=== PATIENT | female | born 1970 | race Caucasian/White ===

== ENCOUNTER 2018-04-02 12:30 | Emergency (ER) | payer BC, SELFPAY ==
[2018-04-02 12:35] VITALS: BP 119/87; PULSE 83; RESP 16; TEMP 36.7; O2SAT 97
[2018-04-02 13:52] LABS: Abs Immature Grans 0.01 k/cumm (0.0-0.09); Absolute Basophil Count 0.05 k/cumm (0.0-0.2); Absolute Eosinophil Count 0.25 k/cumm (0.0-0.7); Absolute Lymphocyte Count 2.56 k/cumm (1.2-3.4); Absolute Monocyte Count 0.47 k/cumm (0.11-0.7); Absolute Neutrophil Count 4.36 k/cumm (1.2-6.7); Basophils % 0.6; Eosinophils % 3.2; HCT 41.9 % (36.0-46.0); HGB 14.6 g/dL (12.0-15.5); Immature Grans % 0.1; Lymphocytes % 33.2; Mean Corp. HGB Concentration 34.8 g/dL (32.0-36.0); Mean Corpuscular Hemoglobin 31.3 pg (27.0-33.0); Mean Corpuscular Volume 89.9 fL (80-95); Mean Platelet Volume 9.2 fL (8.0-11.0); Monocytes % 6.1; Neutrophils % 56.8; Platelet Count 269 x1000/uL (130-400); RBC 4.66 m/cumm (4.00-5.20); RBC Distribution Width 13.4 % (11.7-14.6)
[2018-04-02 14:04] LABS: ALT 21 U/L (12-78); AST 15 U/L (15-37); Alkaline Phosphatase 52 U/L (46-116); Anion Gap 8.2 mmol/L (3-11); BUN 15 mg/dL (7-18); Bilirubin, Total 0.4 mg/dL (0.2-1.0); CO2 28.8 mmol/L (21.0-32.0); CREATININE 0.67 mg/dL (0.55-1.02); Chloride 102 mmol/L (98-107); Glucose 90 mg/dL (70-100); Lipase 147 U/L (73-393); Potassium 3.9 mmol/L (3.5-5.1); Sodium 139 mmol/L (136-145); Total Protein 7.5 g/dL (6.4-8.2)
[2018-04-02 15:28] LABS: Bilirubin Negative (Negative); Blood Negative (Negative); Clarity Clear; Glucose Negative (Negative); Ketones Negative (Negative); Leukocyte Esterase Negative (Negative); Nitrite Negative (Negative); Specific Gravity 1.015 (1.005-1.025); Urobilinogen 0.2 EU/dL (Up TO 0.2)
--- NOTE | 2018-04-02 16:09 | W.ED.GENAD ---
Discharge Plan Disposition Patient Disposition: HOME Condition: Stable Discharge Details Chief Complaint: GenMedical Clinical Impression: Nausea & vomiting, Headache Primary Care Provider: Pati Gaona ED Provider: Robbin Montoya Home Meds and New Rx's Prescriptions: No Action fluvoxamine 50 mg Tablet 50 mg PO DAILY RF: 0 Discharge Instructions Instructions: Acute Nausea and Vomiting (ED), General Headache (ED) Additional Instructions: Feel free to return to the emergency department for any new or worsening symptoms. Otherwise take medication as prescribed by your primary care provider for further nausea and slowly advance her diet as tolerated. You may also use ibuprofen or other yqcl-dxo-xjemnku medications as needed for headache. Referrals: Pati Gaona MD [Primary Care Provider] - (As needed for reassessment) Discharge Data Discharge Date/Time-TO BE ENTERED AT DEPARTURE: 04/02/18 16:15 Medical Decision Making Patient presenting to the emergency department with chief complaint of nausea vomiting. Patient also does state associated migraine headache which is her normal headache. Patient states that 2 weeks ago she had a procedure performed on her neck and then started having some mild nausea vomiting. Patient states multiple workups and visits with both primary care and emergency department at [facility] with no acute signs. Patient states that symptoms symptoms have been fairly persistent but at times has been able to tolerate p.o. intake. Patient was seen today at her primary care office and they were concerned due to the reported significant amount of vomiting and were requesting patient to come to the emergency department for labs and IV hydration. Physical exam is unremarkable and shows no emergent findings so plan is to check labs, give IV fluids, and give antiemetic and ketorolac. After review of labs which is completely unremarkable and shows no significant signs of dehydration patient reassessed. Due to significant volume in the emergency department patient did receive fluids but no ketorolac. Patient states that she does feel better and improved and reassured that her labs are okay. Given this I do not feel that any other interventions are needed at this time and patient was encouraged to follow-up with primary care provider as needed or return to the emergency department for new or worsening symptoms. HPI General Mode of arrival: ambulatory. Date/Time Provider Initiated Documentation: 04/02/18 12:45. Limitations to Documentation: no limitations. Information obtained by: patient. History of Present Illness 47 year old F presents to the emergency department with the chief complaint of Vomiting, described as moderate, with intensity rated at 7. and is localized to the head. Patient started experiencing this week(s) (2) and it has been constant. No relieving factors improve symptom(s), No exacerbating factors reported . Patient notes headaches. Patient did receive the following treatments prior to arrival, none Related Data Home Medications Medication Instructions Recorded Confirmed fluvoxamine 50 mg PO DAILY 04/02/18 04/02/18 Allergies Allergy/AdvReac Type Severity Reaction Status Date / Time sumatriptan [From Imitrex] Allergy Intermediate head Unverified 04/02/18 12:42 numbness sumatriptan succinate Allergy Intermediate head Unverified 04/02/18 12:42 [From Imitrex] numbness General Stated Complaint: GenMedical MELISSA: 3 Review of Systems Constitutional Denies body ache(s), Denies chills, Denies fever(s) and Reports headache(s) ENT Reports headache(s) Cardiovascular Denies chest pain and Denies dyspnea Respiratory Denies dyspnea Gastrointestinal Denies abdominal pain, Reports nausea and Reports vomiting Integumentary/Breasts Denies rash Neurologic Denies confusion, Reports headache(s) and Denies sensory deficit Psychiatric Denies confusion PFSH Medical History Migraine headache (Chronic) Social History Smoking/Tobacco Use Status: Current every day Exam Const General: cooperative, no acute distress and not ill appearing Orientation: alert, awake and oriented x3 HENMT Mouth: moist mucous membranes Neck Neck: normal visual inspection, full ROM and no meningeal signs Resp Effort & Inspection: normal respiratory effort, able to speak in complete sentences and no respiratory distress Auscultation: clear to auscultation bilaterally Cardio Rate: regular rate and not tachycardic Rhythm: regular rhythm Heart Sounds: S1 normal and S2 normal Skin General skin exam: no rashes or lesions noted Neuro General: alert, awake, oriented x3, gait normal, tone normal, moves all extremities, no focal motor deficits and CN's II-XI intact bilaterally Sensory Exam: no sensory deficits noted Course Vital Signs Temperature 36.7 C 04/02/18 12:35 Pulse 83 04/02/18 12:35 Respiratory Rate 16 04/02/18 12:35 Blood Pressure 119/87 04/02/18 12:35 Pulse Oximetry 97 04/02/18 12:35 Temperature 36.7 C 04/02/18 12:35 Temperature Source Temporal Artery Scan 04/02/18 12:35 Pulse 83 04/02/18 12:35 Respiratory Rate 16 04/02/18 12:35 Respiratory Effort 04/02/18 13:34 Respiratory Pattern Normal 04/02/18 13:34 Blood Pressure 119/87 04/02/18 12:35 Blood Pressure Position Sitting 04/02/18 12:35 Pulse Oximetry 97 04/02/18 12:35 Oxygen Delivery Method Room Air 04/02/18 12:35 Oxygen Flow Rate 0 04/02/18 12:35 Lab/Test Results Lab/Test Results: Laboratory Tests Range/Units 04/02/18 04/02/18 04/02/18 13:46 13:46 15:23 WBC (4.4-10.8) k/cumm 7.70 RBC (4.00-5.20) m/cumm 4.66 Hgb (12.0-15.5) g/dL 14.6 Hct (36.0-46.0) % 41.9 MCV (80-95) fL 89.9 MCH (27.0-33.0) pg 31.3 MCHC (32.0-36.0) g/dL 34.8 RDW (11.7-14.6) % 13.4 Plt Count (130-400) x1000/uL 269 MPV (8.0-11.0) fL 9.2 Immature Gran % 0.1 Neutrophils % 56.8 Lymphocytes % 33.2 Monocytes % 6.1 Eosinophils % 3.2 Basophils % 0.6 Absolute Neutrophils (1.2-6.7) k/cumm 4.36 Absolute Lymphocytes (1.2-3.4) k/cumm 2.56 Absolute Monocytes (0.11-0.7) k/cumm 0.47 Absolute Eosinophils (0.0-0.7) k/cumm 0.25 Absolute Basophils (0.0-0.2) k/cumm 0.05 Sodium (136-145) mmol/L 139 Potassium (3.5-5.1) mmol/L 3.9 Chloride (98-107) mmol/L 102 Carbon Dioxide (21.0-32.0) mmol/L 28.8 Anion Gap (3-11) mmol/L 8.2 BUN (7-18) mg/dL 15 Creatinine (0.55-1.02) mg/dL 0.67 Estimated GFR/1.73 m2 (mL/min/1.73m2) >= 60.00 Glucose (70-100) mg/dL 90 Calcium (8.5-10.1) mg/dL 9.0 Magnesium (1.8-2.4) mg/dL 2.0 Total Bilirubin (0.2-1.0) mg/dL 0.4 AST (15-37) U/L 15 ALT (12-78) U/L 21 Alkaline Phosphatase (46-116) U/L 52 Total Protein (6.4-8.2) g/dL 7.5 Albumin (3.4-5.0) g/dL 4.0 Lipase (73-393) U/L 147 Urine Color (Yellow) Yellow Urine Clarity Clear Urine pH (5-8) 7.0 Ur Specific [place] (1.005-1.025) 1.015 Urine Protein (Negative) mg/dL Negative Urine Ketones (Negative) mg/dL Negative Urine Blood (Negative) Negative Urine Nitrite (Negative) Negative Urine Bilirubin (Negative) Negative Urine Urobilinogen (Up TO 0.2) EU/dL 0.2 Ur Leukocyte Esterase (Negative) Negative Urine Glucose (Negative) mg/dL Negative
[2018-04-02] MEDS: Normal Saline 1,000 ML 1000 ML IV (16:12)
--- NOTE | 2018-04-02 16:12 | ED.GENADUL_ITS ---
Discharge Plan Disposition Patient Disposition: HOME Condition: Stable Discharge Details Chief Complaint: GenMedical Clinical Impression: Nausea & vomiting, Headache Primary Care Provider: Pati Gaona ED Provider: Robbin Montoya Home Meds and New Rx's Prescriptions: No Action fluvoxamine 50 mg Tablet 50 mg PO DAILY RF: 0 Discharge Instructions Instructions: Acute Nausea and Vomiting (ED), General Headache (ED) Additional Instructions: Feel free to return to the emergency department for any new or worsening symptoms. Otherwise take medication as prescribed by your primary care provider for further nausea and slowly advance her diet as tolerated. You may also use ibuprofen or other uyzn-mhy-xhdyofj medications as needed for headache. Referrals: Pati Gaona MD [Primary Care Provider] - (As needed for reassessment) Discharge Data Discharge Date/Time-TO BE ENTERED AT DEPARTURE: 04/02/18 16:15 Medical Decision Making Patient presenting to the emergency department with chief complaint of nausea vomiting. Patient also does state associated migraine headache which is her normal headache. Patient states that 2 weeks ago she had a procedure performed on her neck and then started having some mild nausea vomiting. Patient states multiple workups and visits with both primary care and emergency department at [facility] with no acute signs. Patient states that symptoms symptoms have been fairly persistent but at times has been able to tolerate p.o. intake. Patient was seen today at her primary care office and they were concerned due to the reported significant amount of vomiting and were requesting patient to come to the emergency department for labs and IV hydration. Physical exam is unremarkable and shows no emergent findings so plan is to check labs, give IV fluids, and give antiemetic and ketorolac. After review of labs which is completely unremarkable and shows no significant signs of dehydration patient reassessed. Due to significant volume in the emergency department patient did receive fluids but no ketorolac. Patient states that she does feel better and improved and reassured that her labs are okay. Given this I do not feel that any other interventions are needed at this time and patient was encouraged to follow-up with primary care provider as needed or return to the emergency department for new or worsening symptoms. HPI General Mode of arrival: ambulatory . Date/Time Provider Initiated Documentation: 04/02/18 12:45 . Limitations to Documentation: no limitations . Information obtained by: patient . History of Present Illness 47 year old F presents to the emergency department with the chief complaint of Vomiting, described as moderate, with intensity rated at 7. and is localized to the head. Patient started experiencing this week(s) (2) and it has been constant. No relieving factors improve symptom(s), No exacerbating factors reported . Patient notes headaches. Patient did receive the following treatments prior to arrival, none Related Data Home Medications Medication Instructions Recorded Confirmed fluvoxamine 50 mg PO DAILY 04/02/18 04/02/18 Allergies Allergy/AdvReac Type Severity Reaction Status Date / Time sumatriptan [From Imitrex] Allergy Intermediate head Unverified 04/02/18 12:42 numbness sumatriptan succinate Allergy Intermediate head Unverified 04/02/18 12:42 [From Imitrex] numbness General Stated Complaint: GenMedical MELISSA: 3 Review of Systems Constitutional Denies body ache(s), Denies chills, Denies fever(s) and Reports headache(s) ENT Reports headache(s) Cardiovascular Denies chest pain and Denies dyspnea Respiratory Denies dyspnea Gastrointestinal Denies abdominal pain, Reports nausea and Reports vomiting Integumentary/Breasts Denies rash Neurologic Denies confusion, Reports headache(s) and Denies sensory deficit Psychiatric Denies confusion PFSH Medical History Migraine headache (Chronic) Social History Smoking/Tobacco Use Status: Current every day Exam Const General: cooperative, no acute distress and not ill appearing Orientation: alert, awake and oriented x3 HENMT Mouth: moist mucous membranes Neck Neck: normal visual inspection, full ROM and no meningeal signs Resp Effort & Inspection: normal respiratory effort, able to speak in complete sentences and no respiratory distress Auscultation: clear to auscultation bilaterally Cardio Rate: regular rate and not tachycardic Rhythm: regular rhythm Heart Sounds: S1 normal and S2 normal Skin General skin exam: no rashes or lesions noted Neuro General: alert, awake, oriented x3, gait normal, tone normal, moves all extremities, no focal motor deficits and CN's II-XI intact bilaterally Sensory Exam: no sensory deficits noted Course Vital Signs Temperature 36.7 C 04/02/18 12:35 Pulse 83 04/02/18 12:35 Respiratory Rate 16 04/02/18 12:35 Blood Pressure 119/87 04/02/18 12:35 Pulse Oximetry 97 04/02/18 12:35 Temperature 36.7 C 04/02/18 12:35 Temperature Source Temporal Artery Scan 04/02/18 12:35 Pulse 83 04/02/18 12:35 Respiratory Rate 16 04/02/18 12:35 Respiratory Effort 04/02/18 13:34 Respiratory Pattern Normal 04/02/18 13:34 Blood Pressure 119/87 04/02/18 12:35 Blood Pressure Position Sitting 04/02/18 12:35 Pulse Oximetry 97 04/02/18 12:35 Oxygen Delivery Method Room Air 04/02/18 12:35 Oxygen Flow Rate 0 04/02/18 12:35 Lab/Test Results Lab/Test Results: Laboratory Tests Range/Units 04/02/18 04/02/18 04/02/18 13:46 13:46 15:23 WBC (4.4-10.8) k/cumm 7.70 RBC (4.00-5.20) m/cumm 4.66 Hgb (12.0-15.5) g/dL 14.6 Hct (36.0-46.0) % 41.9 MCV (80-95) fL 89.9 MCH (27.0-33.0) pg 31.3 MCHC (32.0-36.0) g/dL 34.8 RDW (11.7-14.6) % 13.4 Plt Count (130-400) x1000/uL 269 MPV (8.0-11.0) fL 9.2 Immature Gran % 0.1 Neutrophils % 56.8 Lymphocytes % 33.2 Monocytes % 6.1 Eosinophils % 3.2 Basophils % 0.6 Absolute Neutrophils (1.2-6.7) k/cumm 4.36 Absolute Lymphocytes (1.2-3.4) k/cumm 2.56 Absolute Monocytes (0.11-0.7) k/cumm 0.47 Absolute Eosinophils (0.0-0.7) k/cumm 0.25 Absolute Basophils (0.0-0.2) k/cumm 0.05 Sodium (136-145) mmol/L 139 Potassium (3.5-5.1) mmol/L 3.9 Chloride (98-107) mmol/L 102 Carbon Dioxide (21.0-32.0) mmol/L 28.8 Anion Gap (3-11) mmol/L 8.2 BUN (7-18) mg/dL 15 Creatinine (0.55-1.02) mg/dL 0.67 Estimated GFR/1.73 m2 (mL/min/1.73m2) >= 60.00 Glucose (70-100) mg/dL 90 Calcium (8.5-10.1) mg/dL 9.0 Magnesium (1.8-2.4) mg/dL 2.0 Total Bilirubin (0.2-1.0) mg/dL 0.4 AST (15-37) U/L 15 ALT (12-78) U/L 21 Alkaline Phosphatase (46-116) U/L 52 Total Protein (6.4-8.2) g/dL 7.5 Albumin (3.4-5.0) g/dL 4.0 Lipase (73-393) U/L 147 Urine Color (Yellow) Yellow Urine Clarity Clear Urine pH (5-8) 7.0 Ur Specific [place] (1.005-1.025) 1.015 Urine Protein (Negative) mg/dL Negative Urine Ketones (Negative) mg/dL Negative Urine Blood (Negative) Negative Urine Nitrite (Negative) Negative Urine Bilirubin (Negative) Negative Urine Urobilinogen (Up TO 0.2) EU/dL 0.2 Ur Leukocyte Esterase (Negative) Negative Urine Glucose (Negative) mg/dL Negative
[2018-04-02 16:15] VITALS: BP 133/80; PULSE 85; RESP 18; TEMP 36.8; O2SAT 99
== END 2018-04-02 16:15 | disposition home or self-care (01) ==
PROVIDERS: Emergency Provider Nurse Practitioner Family; PCP Family Medicine
DX: R11.2 Nausea with vomiting, unspecified (principal); R51 Headache
CPT/HCPCS: 36415; 80053; 83690; 96374; 96375; 99284; 81003; 83735; 85025

== ENCOUNTER 2018-08-30 14:50 | Outpatient (REF) | payer OTHER, SELFPAY ==
[2018-08-30 19:37] LABS: Abs Immature Grans 0.07 k/cumm (0.0-0.09); Absolute Basophil Count 0.03 k/cumm (0.0-0.2); Absolute Eosinophil Count 0.35 k/cumm (0.0-0.7); Absolute Lymphocyte Count 3.39 k/cumm (1.2-3.4); Absolute Monocyte Count 0.66 k/cumm (0.11-0.7); Absolute Neutrophil Count 4.11 k/cumm (1.2-6.7); Basophils % 0.3; Eosinophils % 4.1; HCT 37.9 % (36.0-46.0); HGB 12.9 g/dL (12.0-15.5); Immature Grans % 0.8; Lymphocytes % 39.4; Mean Corpuscular Hemoglobin 30.4 pg (27.0-33.0); Mean Corpuscular Volume 89.4 fL (80-95); Mean Platelet Volume 9.7 fL (8.0-11.0); Monocytes % 7.7; Neutrophils % 47.7; Platelet Count 367 x1000/uL (130-400); RBC 4.24 m/cumm (4.00-5.20); RBC Distribution Width 12.4 % (11.7-14.6); White Blood Cell Count 8.61 k/cumm (4.4-10.8)
[2018-08-30 19:51] LABS: ALT 30 U/L (12-78); AST 17 U/L (15-37); Albumin 3.8 g/dL (3.4-5.0); Alkaline Phosphatase 64 U/L (46-116); Anion Gap 7.6 mmol/L (3-11); BUN 14 mg/dL (7-18); Bilirubin, Total 0.2 mg/dL (0.2-1.0); CO2 30.4 mmol/L (21.0-32.0); Calcium 8.7 mg/dL (8.5-10.1); Chloride 102 mmol/L (98-107); Glucose 95 mg/dL (70-100); Sodium 140 mmol/L (136-145); Total Protein 7.2 g/dL (6.4-8.2)
[2018-08-30 20:09] LABS: Lipase 201 U/L (73-393)
== END 2018-08-30 15:10 ==
LOC: NCHCN 14:50
PROVIDERS: PCP Family Medicine; Visit Provider Family Medicine
DX: R51 Headache (principal); J09.X2 Influenza due to identified novel influenza A virus with other respiratory manifestations
CPT/HCPCS: 80053; 83690; 85025

== ENCOUNTER 2019-06-30 09:28 | Outpatient (REF) | payer OTHER, SELFPAY ==
[2019-06-30 12:34] LABS: HGB 13.9 g/dL (12.0-15.5); Mean Corp. HGB Concentration 33.9 g/dL (32.0-36.0); Mean Corpuscular Hemoglobin 29.6 pg (27.0-33.0); Mean Corpuscular Volume 87.2 fL (80-95); Mean Platelet Volume 9.5 fL (8.0-11.0); Platelet Count 296 x1000/uL (130-400); RBC Distribution Width 12.4 % (11.7-14.6); White Blood Cell Count 6.83 k/cumm (4.4-10.8)
[2019-06-30 13:27] LABS: ALT 18 U/L (14-59); AST 13 U/L (15-37); Albumin 4.2 g/dL (3.4-5.0); Alkaline Phosphatase 63 U/L (46-116); BUN 15 mg/dL (7-18); Bilirubin, Total 0.5 mg/dL (0.2-1.0); CREATININE 0.78 mg/dL (0.55-1.02); Calcium 9.1 mg/dL (8.5-10.1); Chloride 104 mmol/L (98-107); Glucose 94 mg/dL (74-106); Potassium 4.2 mmol/L (3.5-5.1); Sodium 141 mmol/L (136-145); TSH (W/Ref FT4) 1.11 uIU/mL (0.36-3.74); Total Protein 7.4 g/dL (6.4-8.2)
[2019-06-30 13:39] LABS: Amylase 60 U/L (25-115); Lipase 151 U/L (73-393)
[2019-07-01 12:40] LABS: IgA 91 mg/dL (85-499); Tissue Transglutaminase IgA <1.2 U/mL (<4.0)
== END 2019-06-30 09:48 ==
LOC: NCHCN 09:28
PROVIDERS: PCP Family Medicine; Visit Provider Family Medicine
DX: R10.9 Unspecified abdominal pain (principal); R11.0 Nausea; M25.559 Pain in unspecified hip
CPT/HCPCS: 80053; 82784; 83516; 83690; 85027; 82150; 84443

== ENCOUNTER 2019-07-05 02:00 | Outpatient (CLI) | payer OTHER, SELFPAY ==
--- NOTE | 2019-07-05 07:06 | DI.US_ITS ---
EXAM: US ABD PELV TRANSVAG NON-OB CLINICAL HISTORY: NAUSEA,DIFFUSE ABD DISCOMFORT,S/P HYSTERECTOMY, STILL HAS RT OVARY TECHNIQUE: Ultrasound of the abdomen and pelvic was performed using standard protocol. COMPARISON: PELVIS TRANSVAG from 12/27/2012 FINDINGS: LIVER: Normal. Hepatopetal flow through the portal vein. GALLBLADDER: Status post cholecystectomy. KIDNEYS: Kidneys are symmetric in size. No evidence of renal calculi. No evidence of hydronephrosis. No renal mass or cyst identified. BILIARY SYSTEM: Common bile duct measures 7 mm. No intrahepatic biliary ductal dilation. PANCREAS: Normal where visualized. SPLEEN: Not enlarged. ABDOMINAL AORTA AND IVC: Visualized portions normal caliber. ASCITES: None seen. UTERUS: Status post hysterectomy. OVARIES: Right: Not visualized transabdominally or transvaginally. No right adnexal mass. Left: Status post left oophorectomy. CUL-DE-SAC: Free fluid: None. IMPRESSION: 1. Normal sonographic appearance of the upper abdomen. Status post cholecystectomy. 2. Status post hysterectomy. 3. Left oophorectomy. Right ovary not visualized sonographically. No adnexal mass seen sonographica lly.
--- NOTE | 2019-07-05 07:44 | DI.RAD_ITS ---
EXAM: XR PELVIS AP CLINICAL HISTORY: PELVIC JOINT PAIN, M25.559, PAIN LT SYMPHYSIS PUBIS AREA. TECHNIQUE: 2D digital imaging was performed. COMPARISON: No exams were available for comparison FINDINGS: BONES: No acute fracture is present. No bony destructive lesion is seen. JOINTS: No dislocation present. No joint space narrowing is present. SOFT TISSUE: Normal. IMPRESSION: Unremarkable radiographs of the pelvis.
== END 2019-07-05 02:20 ==
PROVIDERS: PCP Family Medicine; Visit Provider Family Medicine
DX: R10.2 Pelvic and perineal pain (principal); M25.552 Pain in left hip; R10.9 Unspecified abdominal pain; R11.0 Nausea; Z90.49 Acquired absence of other specified parts of digestive tract; Z90.710 Acquired absence of both cervix and uterus; Z90.721 Acquired absence of ovaries, unilateral
CPT/HCPCS: 72170; 76700; 76830; 76856

== ENCOUNTER 2019-08-02 02:39 | Outpatient (CLI) | payer OTHER, SELFPAY ==
--- NOTE | 2019-08-02 08:50 | DI.MAMMO_ITS ---
EXAM: MG MAMMO SCREENING CLINICAL HISTORY: SCREENING, Z12.31 TECHNIQUE: Bilateral full field digital CC and MLO mammographic images were obtained with 3D tomosyn thesis and utilizing computer aided detection (CAD). COMPARISON: Available for comparison. FINDINGS: Masses/Architectural Distortion: None seen. Microcalcifications: No suspicious pleomorphic-type are seen. Skin Thickening/Nipple Retraction: None. IMPRESSION: 1. No significant interval change with no specific features of malignancy noted. 2. Unless there is more urgent need, screening mammography is recommended, as per [place] guidelines. ACR BI-RAD Category- 1 Negative Breast Density - Category B - Scattered areas of fibroglandular density A negative radiographic report should not delay biopsy if a dominant or clinically suspicious mass is present. Up to ten percent of cancers are not identified on mammography. A negative report may reinforce clinical impression. Adenosis and dense breasts may obscure an underlying neoplasm. False positive reports average 6 to 10%. Patient will receive a letter notifying them of these results.
== END 2019-08-02 02:59 ==
PROVIDERS: PCP Family Medicine; Visit Provider Family Medicine
DX: Z12.31 Encounter for screening mammogram for malignant neoplasm of breast (principal)
CPT/HCPCS: 77063; 77067

== ENCOUNTER 2019-09-06 01:25 | Outpatient (CLI) | payer OTHER, SELFPAY ==
--- NOTE | 2019-09-06 | DI.MRI_ITS ---
EXAM: MR LUMBAR SPINE WO CLINICAL HISTORY: BUTTOCK PAIN, R52,URINARY INCONTINENCE, R32,RT LEG PAIN TECHNIQUE: Multiplanar multisequence MRI was performed. COMPARISON: MRI - LUMBAR SPINE WO CONTRAST from 05/21/2015 FINDINGS: MR examination of the lumbosacral spine was performed according to the usual protocol. There are mil d changes of facet hypertrophy at L4-5 and L5-S1. The bony central spinal canal appears intact throug hout. No significant bony signal abnormality identified. The conus medullaris appears intact. There is mild signal loss of L4-5 and L5-S1 intervertebral discs. Mild disc bulges noted at these 2 levels. Previously noted mild central disc herniation at L5-S1 seen on prior MRI of 05/21/2015 is l ess prominent and only minimally visible as an annular tear on today's examination. No new disc trixie iation in the lumbar region. IMPRESSION: Previously noted mild central L5-S1 disc herniation seen in 2015 is less prominent on the current exa mination. No significant new findings. DATA REPOSITORY:
== END 2019-09-06 01:45 ==
PROVIDERS: PCP Family Medicine; Visit Provider Family Medicine
DX: M79.604 Pain in right leg (principal); M79.18 Myalgia, other site; R32 Unspecified urinary incontinence; M51.27 Other intervertebral disc displacement, lumbosacral region; M47.817 Spondylosis without myelopathy or radiculopathy, lumbosacral region
CPT/HCPCS: 72148

== ENCOUNTER 2019-10-13 10:34 | Outpatient (CLI) | payer OTHER, SELFPAY ==
--- NOTE | 2019-10-13 06:00 | DI.RAD_ITS ---
EXAM: XR PAIN CLINIC SACRIOILIAC 2V CLINICAL HISTORY: Dx: Ischial bursitis TECHNIQUE: 2D and realtime digital imaging was performed. Fluoroscopy was provided in the OR COMPARISON: No exams were available for comparison FINDINGS: C-arm fluoroscopy was utilized by Dr. Urena during reported bilateral ischial bursa injection. Hard c opies show needle placement and injected the expected location ischial bursa. Fluoro time, 25 seconds. IMPRESSION: RADIATION DOSE DELIVERED: Total DLP
[2019-10-13 11:23] VITALS: BP 118/83; PULSE 72; RESP 17; TEMP 37.1; O2SAT 99
[2019-10-13 11:50] VITALS: BP 162/93; PULSE 70; RESP 16; O2SAT 100
[2019-10-13] MEDS: Omnipaque 240 MG/ML 50 ML BTL (12:01)
[2019-10-13] MEDS: methylPREDNISolone ACETATE 40 MG/ML VIAL IJ (12:02)
[2019-10-13] MEDS: Lidocaine 2% Pres-Free 5 ML VIAL IJ (12:02)
--- NOTE | 2019-11-03 09:35 | PDOC.PAIN ---
Pain Clinic Procedure Note Procedure Note Procedure Note: Bilateral Ishcial bursa Injection Procedure Note COMMENTS: Patient previously seen in the office and diagnosed with bilateral ischial bursitis DX: Ischial bursitis DANIELA LI has been referred to the [facility] for fluoroscopically guided ischial bursa injection. The patient was greeted by the nurse who verified patients name and . Patient was then taken to the fluoroscopy suite. The patient was interviewed and the medial record reviewed. There were no medical, pharmacologic, radiographic, or other structural contraindications to attempting fluoroscopically guided bilateral ischial bursa injection. Risks and expected side effects as well as potential benefits of the procedure were reviewed and voiced concerns expressed. The patient consent form was signed and witnessed. Standard patient time-out procedure was performed. The patient was placed in the prone position on the fluoroscopy table and automated blood pressure cuff and pulse oximeter applied. The skin entry point for entering/approaching the bilateral ischial tuberosities and marked. Following thorough chlorhexadine preparation of the skin and draping and 1% lidocaine infiltration of the skin entry point and subcutaneous tissues, a 22 gauge spinal needle was placed under fluoroscopic guidance to the distal portion of the ischial tuberosities. Needle tip placement and depth were aided and confirmed by fluoroscopy. There was no paresthesia or return of blood or CSF through the needle. 1 cc's of Omnipaque 240 was injected with clear spread confirmed with fluoroscopy. 40mg depomedrol was injected into each bursa followed by 1 cc of 2% Lidocaine. There was not any unusual discomfort expressed by DANIELA LI. Patient's vital signs were stable throughout the procedure and were as recorded in nursing records. Follow up plans and appointments were discussed with patient. Post procedure instruction was given as documented in nursing records and having met discharge criteria and was discharged from the [facility]. COMMENTS: If this procedure is helpful, it can be completed up to 3 times per 12 months.
== END 2019-10-13 10:54 ==
PROVIDERS: PCP Family Medicine; Visit Provider Preventive Medicine Occupational Medicine
DX: M70.71 Other bursitis of hip, right hip (principal); M70.72 Other bursitis of hip, left hip
CPT/HCPCS: 20610; 72200; J1030; Q9967

== ENCOUNTER → 2020-01-26 13:53 | Outpatient (CLI) | payer OTHER, SELFPAY ==
[2020-01-26 14:01] VITALS: BP 106/84; PULSE 97; RESP 16; TEMP 37.3; O2SAT 98
[2020-01-26 14:30] VITALS: BP 138/95; PULSE 100; RESP 22; O2SAT 98
--- NOTE | 2020-01-26 14:32 | PDOC.PAIN ---
Pain Clinic Procedure Note Procedure Note Procedure Note: Bilateral ischiogluteal bursa injections DANIELA LI has been referred to the [facility] for bilateral ischiogluteal bursitis. COMMENTS: She did great for about 6 weeks with her last injections on 10/13/19 DX: Bilateral Ischiogluteal bursitis Patient was interviewed and the medical record reviewed. There were no medical, pharmacologic, radiographic or other structural contraindications to attempting fluoroscopically guided local anesthetic lumbar/sacral medial branch blocks. Risks and expected side effects as well as potential benefit of the procedure were reviewed and voiced concerns addressed. The printed consent form was signed and witnessed. Standard time-out procedure was performed. Patient was placed in the prone position on the fluoroscopy table and automated blood pressure cuff and pulse oximeter applied. The skin entry points for approaching the anatomic target points of the bilateral ischiogluteal bursas were identified with anfluoroscopy and marked. Following thorough Chlorhexadine preparation of the skin and draping and 1% lidocaine infiltration of the skin entry points and subcutaneous tissues, a 25 gauge 3.5 spinal needle was placed under fluoroscopic guidance down on to the target point for each respective bursa.Position was confirmed in A/P, and 0.25ml of omnipaque 240 was injected at each site. At that point I injected 1/2 cc of Depomedrol (40 mg/cc) and 1 cc of 2% Lidocaine. The needles were removed without difficulty. Vital signs were stable throughout the procedure and were as recorded in the docflowsheet by the nursing staff. Follow up plans and appointments were discussed and was instructed to keep careful note of how the usual pain was modified by these injections. Post procedure instruction was given as documented in the nursing documentation and having met discharge criteria. Patient was discharged from the [facility]. COMMENTS: This procedure can be completed up to 3 times in a 12 month period. Nikolas Urena DO, MPH Pain Management CC: Pati Gaona
--- NOTE | 2020-01-26 14:35 | DI.RAD_ITS ---
EXAM: XR PAIN CLINIC SACRIOILIAC 2V CLINICAL HISTORY: Dx: Ischial bursitis TECHNIQUE: COMPARISON: No exams were available for comparison FINDINGS: C-arm fluoroscopy was utilized by Dr. Urena during reported bilateral ischial bursa injection. Hard c opies show needle placement and injection at the site of the ischial bursa bilaterally. Fluoro time, 22.6 seconds. IMPRESSION: RADIATION DOSE DELIVERED: Total DLP
[2020-01-26] MEDS: Lidocaine 2% Pres-Free 5 ML VIAL IJ (14:41)
[2020-01-26] MEDS: Omnipaque 240 MG/ML 50 ML BTL IJ (14:41)
[2020-01-26] MEDS: methylPREDNISolone ACETATE 40 MG/ML VIAL IJ (14:41)
== END ==
PROVIDERS: PCP Family Medicine; Visit Provider Preventive Medicine Occupational Medicine
DX: M70.71 Other bursitis of hip, right hip (principal); M70.72 Other bursitis of hip, left hip
CPT/HCPCS: 20610; 72200; J1030; Q9967

== ENCOUNTER 2020-03-23 11:23 | Emergency (ER) | payer OTHER, SELFPAY ==
--- NOTE | 2020-03-23 11:27 | W.ED.GENAD ---
Discharge Plan Disposition Patient Disposition: HOME Condition: Improving Discharge Details Clinical Impression: Sciatica Primary Care Provider: Pati Gaona ED Provider: Cristine Taylor Home Meds and New Rx's Prescriptions: New prednisone 20 mg tablet See Rx Instructions .ROUTE .COMPLEX Qty: 12 RF: 0 methocarbamol 500 mg tablet 500 mg PO Q6H PRN (Reason: muscle spasm) Qty: 14 RF: 0 Continued estradiol [Vagifem] 10 mcg tablet 10 mcg VG .twice weekly 360 Days Qty: 24 RF: 3 Discharge Instructions Instructions: Sciatica (ED) Additional Instructions: Alternate ice and heat to the affected area(s) several times daily for 20 minutes at a time. Take the steroids as directed until finished. Alternate tylenol and motrin as needed and directed for pain. Take the pain medication and muscle relaxers as needed and directed for pain not relieved with Tylenol or Motrin. Follow-up with your primary care doctor in 1 week. Return to the emergency department with any worsening or new concerning symptoms. Discharge Data Discharge Physician: Cristine Taylor Medical Decision Making 1145 -- 49-year-old female with a history of anxiety and depression, migraines and chronic bilateral ischial bursitis presents with left lower back, left hip, left buttock pain with radiation to her left leg since last night. No cauda equina symptoms. No fever. No known injury. Vitals within normal limits. Patient appears nontoxic. She is crying and appears uncomfortable. She has tenderness palpation of her left lumbar paraspinal region, left buttock and left lateral hip without evidence of cellulitis or trauma. She has neurovascular intact. No focal deficits. Abdomen soft and nontender. Suspect most likely sciatica, also consider muscle strain, arthritis, bursitis. Will obtain a left hip and pelvis x-ray, give a dose of p.o. prednisone, oxycodone, Valium and IM Toradol and reassess. 1345 -- patient reassessed and she denies any relief in pain. She is crying significantly. X-ray negative. Will give a dose of Dilaudid p.o. and reassess. 1445 --patient reassessed and she feels much better and feels back to the home. She was able to ambulate with improvement. Discussed with patient that at this time this appears consistent likely with sciatica. She has no focal deficits, no cauda equina symptoms and no reported fever, does not appear consistent with septic arthritis, cauda equina syndrome or occult fracture. Advised patient to follow-up with her primary care doctor for reevaluation and referral for additional imaging if symptoms do not improve or worsen. Usual and customary return precautions given prior to discharge. Medical Records Medical records reviewed: Yes I reviewed the patient's medical records. Imaging Data Radiologic Study: Radiologist's impression: XR HIP LT COMPLETE AP PELVIS INDICATION: L hip pain/back pain, r/o acute process. COMPARISON: CR XR PELVIS AP from 07/05/2019 TECHNIQUE: 2D digital imaging was performed. FINDINGS: No fracture or dislocation is seen. Hip joint spaces are well maintained. There are no significant degenerative changes. SI joints and pubic symphysis are intact. IMPRESSION: Negative pelvis and left hip. HPI General Mode of arrival: ambulatory. Date/Time Provider Initiated Documentation: 03/23/20 11:24. Limitations to Documentation: no limitations. Information obtained by: patient. HPI Narrative: Patient is a 49-year-old female with a history of anxiety and depression, migraine headaches, hysterectomy and ischial bursitis who presents for left hip pain since last night. She states the pain radiates from her left lower back, buttock and down the front of her leg to her mid calf but is worse in her left hip. She states the pain is worse with weightbearing and walking. She took Tylenol and ibuprofen this morning without relief. She states she has received 2 cortisone injections in the past for her bilateral ischial bursitis and states the last injection was 6 weeks ago. She states the pain feels completely different and separate from that and is usually on her bilateral lower buttocks and not within her lower back or hip and does not have radiation of pain into her leg. She denies any bowel or bladder incontinence, saddle anesthesia, abdominal pain, fever, leg weakness or numbness. She denies any known injury. Related Data Home Medications Medication Instructions Recorded Confirmed estradiol 10 mcg vaginal tablet 10 mcg VG .twice weekly 360 Days 01/09/20 03/23/20 #24 tab methocarbamol 500 mg PO Q6H PRN #14 tab 03/23/20 prednisone See Rx Instructions .ROUTE 03/23/20 .COMPLEX #12 tab Previous Rx's Medication Instructions Recorded estradiol 10 mcg vaginal tablet 10 mcg VG .twice weekly 360 Days 01/09/20 #24 tab methocarbamol 500 mg PO Q6H PRN #14 tab 03/23/20 prednisone See Rx Instructions .ROUTE 03/23/20 .COMPLEX #12 tab Allergies Allergy/AdvReac Type Severity Reaction Status Date / Time sumatriptan [From Imitrex] Allergy Intermediate head Unverified 03/23/20 11:35 numbness sumatriptan succinate Allergy Intermediate head Unverified 03/23/20 11:35 [From Imitrex] numbness General MELISSA: 3 Review of Systems All systems reviewed & are unremarkable except as noted in HPI and below Constitutional Constitutional: Reports as per HPI, Denies chills and Denies fever(s) Eyes Eyes: Denies blurry vision ENT Ears, Nose, Mouth, and Throat: Denies dizziness, Denies sore throat and Denies throat swelling Cardiovascular Cardiovascular: Denies chest pain and Denies dyspnea Respiratory Respiratory: Denies cough and Denies dyspnea Gastrointestinal Gastrointestinal: Denies abdominal pain, Denies diarrhea and Denies vomiting Genitourinary Genitourinary: Denies hematuria and Denies dysuria Musculoskeletal Musculoskeletal: Reports back pain, Denies numbness and Reports other (left hip pain) Integumentary/Breasts Skin/Breast: Denies lesions and Denies rash Neurologic Neurologic: Denies dizziness, Denies localized weakness and Denies numbness Allergic/Immunologic Allergic/Immunologic: Denies throat swelling [facility] Medical History (Updated 03/23/20 @ 14:58 by Cristine Taylor DO) Anxiety and depression Buttock pain Chronic constipation History of nephrolithiasis Migraine headache Spondylosis, cervical Urinary incontinence Vaginal atrophy Surgical History H/O: hysterectomy Hx of cholecystectomy Social History Smoking/Tobacco Use Status: Former Tobacco Use Alcohol Intake: current Alcohol Intake frequency: holidays/special occasions only Drug use: Never Substance use type: does not use Household members: children Housing: house Number of Children: 1 current occupation: [employer] Resources What type of physical activity do you participate in: walking Duration: 60-90 minutes/day Frequency: daily Do you feel safe at home: Yes Do you feel safe in your relationship?: Yes Exam Const General: cooperative, uncomfortable and no acute distress Orientation: alert, awake and oriented x3 HENMT Head: normal to inspection Face and sinus: normal facial exam Eyes General: appearance normal, both eyes and all related structures EOM: EOM intact bilaterally Neck Neck: normal visual inspection and No submandibular swelling Lymphatic: no lymphadenopathy noted Chest Chest: normal inspection of the chest and no tenderness Resp Effort & Inspection: normal respiratory effort and able to speak in complete sentences Auscultation: clear to auscultation bilaterally Cardio Rate: regular rate Rhythm: regular rhythm GI Inspection: normal to inspection Palpation: soft, not firm, not rigid and nontender Auscultation: normal bowel sounds Back/Spine/Pelvis Thoracic/Lumbar Spine: thoracic and lumbar spine normal to inspection, paraspinal tenderness (Right lumbar), No thoracic spinal tenderness and No lumbar spinal tenderness Pelvis: buttock tenderness on the left and sciatic notch tenderness on the left Sacroiliac joints: on the left tender to palpation Skin General skin exam: no rashes or lesions noted Neuro General: patient alert, patient awake and patient oriented x3 Cognition: normal cognition Speech: speech normal Motor: muscle tone normal throughout and strength 5/5 throughout Sensory Exam: no sensory deficits noted DTR's: Rt Patellar: 2+, Lt Patellar: 2+, Rt Ankle: 2+ and Lt Ankle: 2+ Plantar Reflexes: Equivocal: bilateral (Negative Babinski bilaterally) Extrem General: full ROM, capillary refill normal, no calf tenderness bilaterally and no edema Upper/lower leg/hip images: 1. Significant tenderness to palpation of left lateral hip. No erythema, edema, ecchymosis, crepitus. Psych Appearance: grossly normal Mental Status: mental status grossly normal Speech and Movement: speech and movement normal Affect: normal affect
[2020-03-23 11:32] VITALS: BP 140/90; PULSE 91; RESP 16; TEMP 36.8; O2SAT 99
--- NOTE | 2020-03-23 12:15 | DI.RAD_ITS ---
EXAM: XR HIP LT COMPLETE AP PELVIS INDICATION: L hip pain/back pain, r/o acute process. COMPARISON: CR XR PELVIS AP from 07/05/2019 TECHNIQUE: 2D digital imaging was performed. FINDINGS: No fracture or dislocation is seen. Hip joint spaces are well maintained. There are no significant degenerative changes. SI joints and pubic symphysis are intact. IMPRESSION: Negative pelvis and left hip. DATA REPOSITORY: RADIATION DOSE DELIVERED:
[2020-03-23] MEDS: diazePAM 5 MG TAB PO (12:42)
[2020-03-23] MEDS: Ketorolac 60 MG/2 ML VIAL IM (12:43)
[2020-03-23] MEDS: oxyCODONE 5 MG TAB PO (12:43)
[2020-03-23] MEDS: predniSONE 20 MG TAB 60 MG PO (12:44)
[2020-03-23] MEDS: HYDROmorphone 2 MG TAB PO (13:57)
[2020-03-23 15:09] VITALS: BP 155/74; PULSE 92; RESP 16; TEMP 36.7; O2SAT 97
== END 2020-03-23 15:13 | disposition home or self-care (01) ==
PROVIDERS: Emergency Provider Physician Assistant; PCP Family Medicine
DX: M54.32 Sciatica, left side (principal)
CPT/HCPCS: 96372; 99284; 73502; 99285; J1885; J7512

== ENCOUNTER 2020-03-30 03:11 | Outpatient (CLI) | payer OTHER, SELFPAY ==
--- NOTE | 2020-03-30 | DI.MRI_ITS ---
EXAM: MR LOWER JOINT LT WO CLINICAL HISTORY: LT HIP PAIN,M25.552, ? LABRAL TEAR,AVASCULAR NECROSIS OR OCCULT FX. TECHNIQUE: Multiplanar multisequence MRI was performed. COMPARISON: CR XR HIP LT COMPLETE AP PELVIS from 03/23/2020 FINDINGS: MR examination of the hip was performed according to the usual protocol. No bony signal abnormality seen in the pelvis or left hip. The muscles, tendons, and tendinous attachments appear intact. No l igamentous abnormality seen. No significant joint effusion. Intrapelvic structures are unremarkable with no mass or adenopathy. IMPRESSION: Negative left hip MRI. DATA REPOSITORY:
== END 2020-03-30 03:31 ==
PROVIDERS: PCP Family Medicine; Visit Provider Family Medicine
DX: M25.552 Pain in left hip (principal)
CPT/HCPCS: 73721

== ENCOUNTER 2020-07-02 03:56 | Outpatient (CLI) | payer OTHER, SELFPAY ==
[2020-07-03 12:34] LABS: COVID-19 RT-PCR UVMMC Result Negative (Negative)
== END 2020-07-02 04:16 ==
PROVIDERS: PCP Family Medicine; Visit Provider Urology
DX: Z11.52 Encounter for screening for COVID-19 (principal)
CPT/HCPCS: U0003

== ENCOUNTER 2020-07-05 07:25 | Day surgery (SDC) | payer OTHER, SELFPAY ==
--- NOTE | 2020-07-05 07:44 | W.PM.HP.N ---
Date of service: 07/05/20 Time of Service: 07:44 Assessment and Plan Assessment and plan (1) Mixed stress and urge urinary incontinence: Status: Acute Assessment and plan: We will proceed with a mid urethral sling for the stress urinary incontinence History of Present Illness History of Present Illness Chief Complaint: Stress Urinary Incontinence Narrative: This is 50-year-old woman who began having leakage with activity dating back to the time when she gave to her children. Since that time, her symptoms have progressed to where she now has some leakage without sensation. We performed urodynamics which confirmed that her leak point pressure is over 40 cm of water. For this reason, we believe the stress urinary incontinence is the largest portion of her leakage. She presents for placement of a mid urethral sling. She has no episodes of retention. She has no dysuria or gross hematuria. She is not diabetic. She has no steroid dependence. She has not had any prior pelvic surgeries. She does have left trochanteric bursitis. Review of Systems Narrative: No fevers or chills. Pt very physically active No vision change or dysphasia No diabetes or thyroid No shortness of breath, cough or hemoptysis No chest pain or palpitations No nausea, vomiting, hepatitis, ulcers, jaundice, diarrhea or constipation Hx migraine headaches. No seizures, strokes or peripheral neuropathy No bleeding disorders or anemia No gout PFSH Medical History Anxiety and depression Buttock pain Chronic constipation History of nephrolithiasis Migraine headache Spondylosis, cervical Urinary incontinence Vaginal atrophy Surgical History H/O: hysterectomy History of prior ablation treatment CERVICAL Hx of cholecystectomy Social History Smoking/Tobacco Use Status: Former Tobacco Use Quit Date: 09/29/01 Smoking risk assessment performed?: Yes Alcohol Intake: current Alcohol Intake frequency: holidays/special occasions only Drug use: Never Substance use type: does not use Household members: children Housing: house Number of Children: 1 current occupation: [employer] Resources What type of physical activity do you participate in: walking Duration: 60-90 minutes/day Frequency: daily Do you feel safe at home: Yes Do you feel safe in your relationship?: Yes Meds Home Medications and Allergies Home Medications Medication Instructions Recorded Confirmed Type estradiol 10 mcg vaginal tablet 10 mcg VG .twice weekly 360 Days 01/09/20 07/05/20 Rx #24 tab 5-hydroxytryptophan (5-HTP) [5-HTP] 400 mg PO HS 07/03/20 07/05/20 History Plexus Probio-5 07/03/20 History eletriptan 20 mg PO DAILY PRN 07/03/20 07/05/20 History lorazepam 0.5 mg PO DAILY PRN 07/03/20 07/05/20 History naratriptan 2.5 mg PO DAILY PRN 07/03/20 07/05/20 History Allergies Allergy/AdvReac Type Severity Reaction Status Date / Time sumatriptan succinate Allergy Intermediate head Unverified 07/05/20 07:53 [From Imitrex] numbness sumatriptan [From Imitrex] AdvReac Intermediate head Unverified 07/05/20 07:53 numbness Exam Const General: cooperative and no acute distress Neck Neck: supple Resp Effort & Inspection: normal respiratory effort Auscultation: clear to auscultation bilaterally Cardio Rate: regular rate Rhythm: regular rhythm GI Inspection: normal to inspection Palpation: soft and no guarding Neuro General: patient alert, patient awake and patient oriented x3 COVID-19 Screening Have you, or household traveled for leisure in last 14 days?: No Had IN PERSON contact w/suspected or confirmed C-19 person: No
[2020-07-05 07:45] VITALS: BP 108/82; PULSE 80; RESP 14; TEMP 36.7; O2SAT 97
[2020-07-05] MEDS: Lactated Ringers 1,000 ML 80 ML IV (08:10)
[2020-07-05] MEDS: ceFAZolin 1 GM/50 ML BAG IVPB (08:40)
[2020-07-05] MEDS: Lidocaine 1% Multi-Dose 50 ML VIAL (09:07)
--- NOTE | 2020-07-05 09:12 | W.PM.DSUDISC ---
Discharge Plan Disposition Patient Disposition: HOME Condition: Stable Discharge Details Reason For Visit: Stress incontinence Attending Provider: Aaron Jones Primary Care Provider: Pati Gaona Home Meds and New Rx's Prescriptions: New acetaminophen-codeine 300-30 mg tablet 1 tab PO Q4H MDD 6 PRN (Reason: pain) Qty: 12 RF: 0 No Action estradiol [Vagifem] 10 mcg tablet 10 mcg VG .twice weekly 360 Days Qty: 24 RF: 3 lorazepam 0.5 mg tablet 0.5 mg PO DAILY PRNRF: 0 naratriptan 2.5 mg tablet 2.5 mg PO DAILY PRNRF: 0 eletriptan 20 mg tablet 20 mg PO DAILY PRNRF: 0 5-HTP 100 mg Capsule 400 mg PO HS RF: 0 Plexus Probio-5 tablet RF: 0 Discharge Instructions Additional Instructions: Followup 2 to 4 weeks - tell my office pt will need pelvic exam at that visit Take take anti-inflammatory meds (like ibuprofen) for pain control. Prescription for Tylenol with codeine sent to the pharmacy. Patient can take the Tylenol with codeine along with the ibuprofen. Activity:: no lifting over 10 pounds for 2 weeks then may resume activity as tolerate Shower/Bathe:: 24 hours Diet:: As Tolerated Discharge Orders Discharge Orders: Discharge Order (Routine); Ordered 07/05/20 Ordered By: Aaron Jones Discharge Data Discharge Comment: pt must void prior to discharge DS: Diagnosis Discharge Diagnosis (1) Mixed stress and urge urinary incontinence: Status: Acute
--- NOTE | 2020-07-05 09:26 | W.PM.OP ---
Date of service: 07/05/20 Time of Service: 09:27 Operative Note Operative Note DATE OF PROCEDURE: 07/05/20 PRE-OP DIAGNOSIS: Stress urinary incontinence POST-OP DIAGNOSIS: same PROCEDURE: Single incision mid urethral sling SURGEON: Aaron Jones ANESTHESIA: other (General without intubation) ESTIMATED BLOOD LOSS: 25 PATHOLOGY: none sent COMPLICATIONS: None Patient was transported to: same day Patient's condition: stable Implants: Altis mid urethral sling Indications: This is a 50-year-old woman who has a history of urinary incontinence. Initially, her symptoms were exclusively stress and top and began after the of her children. Over time, she began having some leakage without sensory awareness. We did a urodynamic study to confirm that her bladder was stable and that her leak point pressure was over 40 cm of water. She presents for placement of a mid urethral sling. Procedure Description: The patient was brought to the operating room on 07/05/2020. She was given a dose of preoperative IV antibiotics. She has a history of left trochanteric bursitis, so she was positioned in the dorsal lithotomy stirrups while awake to ensure that there was no additional pain in her left hip area. She was then given general anesthesia without intubation. Her low abdomen and genitalia were then prepped and draped sterilely. A 16 Latvian Davis catheter was passed through the urethra into the bladder. The catheter balloon was inflated with 10 cc of sterile water. The mid urethra was identified by palpation and the overlying vaginal mucosa was infiltrated with 1% lidocaine. A midline incision overlying the mid urethra area was then performed. We used Metzenbaum scissors to dissect out to the pelvic sidewall. This dissection was performed using both blunt and sharp dissection. We then prepared the Altis mid urethral sling. We began by passing the nontension side of the sling on the patient's right-hand side. The insertion needle was advanced until a pop was felt as we perforated the obturator membrane. The needle was then removed leaving the bolster on the end of the sling securely in place. The tension/adjustable side of the sling was passed on the patient's left-hand side. Again, the needle was advanced to perforate the obturator membrane. The needle was withdrawn leaving the bolster on the end of the sling securely in place. We then placed a Robles scissors between the urethra and the sling. We ensured that the sling lay flat against the Robles scissors. We then adjusted the tension on the sling using the adjustable suture. Once the tension was adjusted, the adjustable suture was cut and the Robles scissors were removed. We closed the vaginal incision with [id number] 2-0 Vicryl. The Davis catheter was removed and cystoscopy was performed using a 22 Latvian cystoscope. We used both a 30 and 70 degree lens to confirm the absence of bladder perforation. The bladder was then emptied and the cystoscope was withdrawn. The patient tolerated this procedure well with no complications.
[2020-07-05 09:51] VITALS: BP 99/73; PULSE 70; RESP 16; TEMP 36.5; O2SAT 96
== END 2020-07-05 10:50 | disposition home or self-care (01) ==
PROVIDERS: PCP Family Medicine; Visit Provider Urology
PROC: (CPT 57288; principal; 2020-07-05 08:15)
DX: N39.3 Stress incontinence (female) (male) (principal)
CPT/HCPCS: 57288; NC; C1781; J0690; J1885; J2001; J2704; J3010

== ENCOUNTER 2020-08-13 01:21 | Outpatient (CLI) | payer OTHER, SELFPAY ==
[2020-08-13] MEDS: Gadoterate meglumine 20 ML VIAL 14 ML IVP (08:25)
[2020-08-13] MEDS: Normal Saline Flush 10 ML SYR IVP (08:25)
--- NOTE | 2020-08-13 09:05 | DI.MRI_ITS ---
EXAM: MR PELVIS WO/W CLINICAL HISTORY: WORSENING PELVIC AND BACK PAIN AFTER SLING SURGERY,R10.2 TECHNIQUE: Multiplanar multisequence MRI of Pelvis was performed. CONTRAST MATERIAL: IV Contrast: 14 mL of Dotarem contrast administered. COMPARISON: No exams were available for comparison FINDINGS: OSSEOUS: There is no fracture or contusion pattern. No hip joint effusion. No evidence of avascular necrosis in the hips. Sacroiliac joints appear unre markable VISUALIZED SPINE: There is a disc herniation evident at L5-S1 level, this best seen on sagittal image s. There is also some annular bulging at L4-5 disc level included in the field of view. There is no foraminal stenosis on either side at these 2 levels. MUSCULOTENDINOUS STRUCTURES: Musculotendinous structures demonstrate no abnormality. INTRAPELVIC STRUCTURES: The uterus is surgically absent. There are no abnormal adnexal masses.. No evidence of psoas nor il iopsoas hematoma. No intrapelvic nor inguinal adenopathy. Urinary bladder is not distended. There are no bladder diverticuli. There is signal abnormality rel ated to the posterior aspect of the urinary bladder seen best on the post-contrast injected sagittal images and measuring 6.5 cm wide by 2 cm cephalocaudal, intimately associated with the posterior aspe ct of the bladder. This may or may not represent something which was placed surgically. There are no abnormal enhancing intrapelvic structures. . IMPRESSION: 1. Uterus is surgically absent. No adnexal masses. No free fluid in the pelvis. 2. There is a symmetrical nonenhancing signal void intimately associated with the posterior bladder w all and vaginal cuff region, measuring 6.5 centimeters wide by 2 centimetres cephalocaudal. Correlat ion with what was possibly placed at surgery recommended. CT scan may add specificity here. 3. There is a disc herniation noted at L5-S1 level seen on the peripheral aspect of the field of vi ew here. DATA REPOSITORY:
== END 2020-08-13 01:41 ==
PROVIDERS: PCP Family Medicine; Visit Provider Urology
DX: R10.2 Pelvic and perineal pain (principal); M51.27 Other intervertebral disc displacement, lumbosacral region
CPT/HCPCS: 72197

== ENCOUNTER 2020-08-23 02:20 | Outpatient (CLI) | payer OTHER, SELFPAY ==
[2020-08-23] MEDS: Omnipaque 350 MG/ML 100 ML BTL IJ (11:23)
[2020-08-23] MEDS: Normal Saline - Diluent 50 ML VIAL IV (11:24)
[2020-08-23] MEDS: Normal Saline Flush 10 ML SYR IVP (11:24)
[2020-08-23] MEDS: Omnipaque 350 MG/ML 50 ML BTL PO (11:25)
--- NOTE | 2020-08-23 11:40 | DI.CT_ITS ---
EXAM: CT PELVIC W CLINICAL HISTORY: eval PELVIC MASS SEEN ON MRI,R19.00. TECHNIQUE: Imaging Protocol: Axial computed tomography images with coronal and sagittal reformatted images were created and reviewed CONTRAST MATERIAL: Intravenous: Omnipaque 100cc Oral: Yes COMPARISON: Recent MRI was reviewed FINDINGS: PELVIS: OSSEOUS:No pelvic or hip fractures evident. No significant osseous lesions. ANTERIOR ABDOMINAL WALL/GI:There is no evidence of anterior abdominal wall hernia in the field of vie w of this pelvic study. No evidence of bowel obstruction or free air. No abscess.There is no signif icant sigmoid diverticular disease. LYMPH NODES: There is no intrapelvic nor inguinal adenopathy. REPRODUCTIVE: The uterus is surgically absent. Ovaries are not seen. No abnormal adnexal masses nor free fluid in the pelvis. Symmetrical appearing pelvic musculature. Some air is seen in the upper vagina. URINARY BLADDER: Urinary bladder is not distended. Pelvic ureters are not dilated. There is no evid ence of mass nor clot in the urinary bladder lumen. There are no bladder diverticuli evident. There are no filling defects in the posterior bladder lumen to correspond to what was seen on the recent M RI scan. There is no radiopaque foreign body. There is no air-gas in the urinary bladder. IMPRESSION: 1. The uterus is surgically absent. Ovaries are not seen on are also presumed to be surgically absen t. There are no abnormal adnexal masses nor free fluid in the pelvis. 2. No abnormal intravesicular findings. There are no findings in the urinary bladder to correspond t o what was seen at this location on the recent MRI study. 3. Pelvic ureters are not dilated. There are no abnormal appearing bowel loops in the pelvis. RADIATION DOSE DELIVERED: 627.75mGy.cm Total DLP DATA REPOSITORY: All CT scans at this facility are submitted to the National Radiology Data Registry (NRDR) Dose Index Registry (DIR) with the [employer] ([employer]). RADIATION OPTIMIZATION: All CT scans at this facility use at least one of these dose optimization te chniques: automated exposure control; mA and/or kV adjustment per patient size (includes targeted exa ms where dose is matched to clinical indication); or iterative reconstruction.
== END 2020-08-23 02:40 ==
PROVIDERS: PCP Family Medicine; Visit Provider Urology
DX: R19.09 Other intra-abdominal and pelvic swelling, mass and lump (principal); Z90.710 Acquired absence of both cervix and uterus
CPT/HCPCS: 72193; J3490; Q9967

== ENCOUNTER 2020-12-05 08:26 | Outpatient (REF) | payer OTHER, SELFPAY ==
[2020-12-05 15:14] LABS: Anion Gap 8.7 mmol/L (3-11); BUN 16 mg/dL (7-18); CO2 28.3 mmol/L (21.0-32.0); CREATININE 0.9 mg/dL (0.55-1.02); Calcium 9.4 mg/dL (8.5-10.1); Chloride 105 mmol/L (98-107); Glucose 99 mg/dL (74-106); Potassium 4.6 mmol/L (3.5-5.1); Sodium 142 mmol/L (136-145)
== END 2020-12-05 08:27 | disposition home or self-care (01) ==
LOC: NCHCN 08:26
PROVIDERS: PCP Family Medicine; Visit Provider Family Medicine
DX: M79.661 Pain in right lower leg (principal)
CPT/HCPCS: 80048

== ENCOUNTER 2021-05-03 09:21 | Outpatient (REF) | payer OTHER, SELFPAY ==
[2021-05-03 14:50] LABS: Abs Immature Grans 0.01 10^3/uL (0.0-0.06); Absolute Basophil Count 0.06 10^3/uL (0.0-0.2); Absolute Eosinophil Count 0.18 10^3/uL (0.0-0.7); Absolute Lymphocyte Count 2.42 10^3/uL (1.2-3.4); Absolute Monocyte Count 0.35 10^3/uL (0.1-0.8); Absolute Neutrophil Count 2.39 10^3/uL (1.2-6.7); Basophils % 1.1; Eosinophils % 3.3; HCT 43.9 % (36.0-46.0); HGB 14.1 g/dL (11.2-15.7); Immature Grans % 0.2; Lymphocytes % 44.7; MCH 30.1 pg (27.0-33.0); MCHC 32.1 % (32.0-36.0); MCV 93.6 fL (80-95); MPV 10.3 fL (8.0-11.0); Monocytes % 6.5; Neutrophils % 44.2; Nucleated RBC 0 %; Platelet Count 296 10^3/uL (130-400); RBC 4.69 10^6/uL (3.93-5.22); RDW 12.3 % (11.7-14.6); RDW-SD 42.5 fL; WBC 5.41 10^3/uL (4.4-10.8)
[2021-05-03 14:53] LABS: ESR 7 mm/hr (0-20)
[2021-05-03 15:03] LABS: C-Reactive Protein 0.08 mg/dL (0.0-0.3); TSH (W/Ref FT4) 2.02 uIU/mL (0.36-3.74)
[2021-05-06 10:50] LABS: HIV-1/2 Ag & Ab Screen Negative (Negative)
[2021-05-06 10:55] LABS: Hepatitis C Ab w Rflx HCV PCR Negative (Negative)
== END 2021-05-03 09:22 | disposition home or self-care (01) ==
LOC: NCHCN 09:21
PROVIDERS: PCP Family Medicine; Visit Provider Family Medicine
DX: Z00.00 Encounter for general adult medical examination without abnormal findings (principal); R13.10 Dysphagia, unspecified; R30.0 Dysuria; M54.2 Cervicalgia; Z11.4 Encounter for screening for human immunodeficiency virus [HIV]; Z11.59 Encounter for screening for other viral diseases
CPT/HCPCS: 85652; 86803; 87389; 84443; 85025; 86140

== ENCOUNTER 2021-05-13 16:56 | Outpatient (REF) | payer OTHER, SELFPAY ==
[2021-05-13 20:47] LABS: Mono Screening Negative (Negative)
== END 2021-05-13 16:57 | disposition home or self-care (01) ==
LOC: NCHCN 16:56
PROVIDERS: PCP Family Medicine; Visit Provider Family Medicine
DX: J02.9 Acute pharyngitis, unspecified (principal)
CPT/HCPCS: 86308

== ENCOUNTER 2021-05-29 00:22 | Outpatient (CLI) | payer OTHER, SELFPAY ==
--- NOTE | 2021-05-29 08:18 | DI.MAMMO_ITS ---
Exam(s) MAMMO SCREENING EXAM: MAMMO SCREENING CLINICAL HISTORY: SCREENING MAMMO FOR BREAST CANCER Z12.31. TECHNIQUE: Bilateral full field digital CC and MLO mammographic images were obtained with 3D tomosyn thesis and utilizing computer aided detection (CAD). COMPARISON: Prior mammograms dating back to 2011, the most recent being July 2019. FINDINGS: There has been no significant change in the appearance and distribution of the fibroglandular tissue. There are no new spiculated masses nor malignant appearing microcalcification groups. Benign-appearing nodules bilaterally are unchanged. There is no significant architectural distortion nor skin thickening-retraction. IMPRESSION: No radiographic evidence of malignancy. BI-RADS Category 1 - Negative Breast Density - Category B - Scattered areas of fibroglandular density Breast density Category C or D implies that the patient has dense breast tissue. Dense breast tissue can make it harder to find cancer on a mammogram. Dense breast tissue is also associated with an incr eased risk of breast cancer. This information about the result of the mammogram report was provided to the patient to raise their awareness. Use this report when you speak with the patient about their risks for breast cancer, which includes their family history. At that time, you may recommend additional screening tests (Ultrasoun d or MRI) as these tests may add significant information. A negative radiographic report should not delay biopsy if a dominant or clinically suspicious mass is present. Up to ten percent of cancers are not identified on mammography. A negative report may reinforce clinical impression. Adenosis and dense breasts may obscure an underlying neoplasm. False positive reports average 6 to 10%. Patient will receive a letter notifying them of these results.
== END 2021-05-29 00:42 ==
PROVIDERS: PCP Family Medicine; Visit Provider Family Medicine
DX: Z12.31 Encounter for screening mammogram for malignant neoplasm of breast (principal)
CPT/HCPCS: 77063; 77067

== ENCOUNTER 2021-06-13 12:05 | Emergency (ER) | payer OTHER, SELFPAY ==
[2021-06-13] VITALS (29 sets, daily range): BP systolic 106–132; BP diastolic 73–96; PULSE 77–141; RESP 8–26; TEMP 37; O2SAT 94–100
--- NOTE | 2021-06-13 12:15 | RT.EKG_ITS ---
APPROVED REPORT Exam: Resting ECG Reason for Exam: chest pain Patient Location: E HR:90 bpm ECG Measurements Heart Rate 90 AXIS SD 170 P 32 QRSd 75 QRS 44 QT 347 T 34 QTc 425 Conclusion Sinus rhythm...normal P axis, V-rate 60- 99 Physician: no stemi, q wave in lead 3
[2021-06-13] MEDS: Normal Saline 1,000 ML 1000 ML IV (12:51)
[2021-06-13 12:56] LABS: Abs Immature Grans 0.01 10^3/uL (0.0-0.06); Absolute Basophil Count 0.03 10^3/uL (0.0-0.2); Absolute Eosinophil Count 0.26 10^3/uL (0.0-0.7); Absolute Lymphocyte Count 2.29 10^3/uL (1.2-3.4); Absolute Monocyte Count 0.32 10^3/uL (0.1-0.8); Absolute Neutrophil Count 3.25 10^3/uL (1.2-6.7); BE (Venous) 4 mmol/L (-2-3); Basophils % 0.5; Eosinophils % 4.2; HCO3 (Venous) 29 mmol/L (23-28); HCT 40.2 % (36.0-46.0); HGB 13.6 g/dL (11.2-15.7); Immature Grans % 0.2; Lymphocytes % 37.2; MCH 30.4 pg (27.0-33.0); MCHC 33.8 % (32.0-36.0); MCV 89.9 fL (80-95); MPV 8.6 fL (8.0-11.0); Monocytes % 5.2; Neutrophils % 52.7; Nucleated RBC 0 %; O2 Sat (Venous) 78 %; Platelet Count 235 10^3/uL (130-400); RBC 4.47 10^6/uL (3.93-5.22); RDW 11.5 % (11.7-14.6); RDW-SD 37.7 fL; TCO2 (Venous) 26 mmol/L (24-29); WBC 6.16 10^3/uL (4.4-10.8); pCO2 (Venous) 48 mmHg (41-51); pH (Venous) 7.39 (7.31-7.41); pO2 (Venous) 42 mmHg
[2021-06-13 13:13] LABS: ALT 40 U/L (14-59); AST 24 U/L (15-37); Albumin 4.3 g/dL (3.4-5.0); Alkaline Phosphatase 56 U/L (46-116); Anion Gap 8.5 mmol/L (3-11); BUN 14 mg/dL (7-18); Bilirubin, Total 0.5 mg/dL (0.2-1.0); CO2 28.5 mmol/L (21.0-32.0); CREATININE 0.7 mg/dL (0.55-1.02); Calcium 9.3 mg/dL (8.5-10.1); Chloride 102 mmol/L (98-107); Glucose 89 mg/dL (74-106); Potassium 3.8 mmol/L (3.5-5.1); Sodium 139 mmol/L (136-145); Total Protein 8.2 g/dL (6.4-8.2)
[2021-06-13 13:21] LABS: NT-proBNP 14 pg/mL (<300); Troponin I < 50 ng/L (<or=60)
[2021-06-13] MEDS: Omnipaque 350 MG/ML 100 ML BTL 63 ML IJ (13:32)
--- NOTE | 2021-06-13 13:45 | DI.CT_ITS ---
Exam(s) CT CHEST PE CTA EXAM: CT CHEST PE CTA CLINICAL HISTORY: covid +, cough, SOB, CP. TECHNIQUE: Imaging Protocol: Axial CT angiography was performed with multi-slice acquisition and mu lti-planar and/or 3D reconstructions. CONTRAST MATERIAL: Intravenous: Omnipaque 350 Contrast volume:62 ml COMPARISON: CR CHEST 2 VIEWS PA,LAT from 11/21/[address] PELVIC W from 08/23/2020 FINDINGS: Pulmonary Arteries: No evidence of filling defect to suggest pulmonary emboli. Tracheobronchial tree: Patent where visualized. Mediastinum and Sammi: No dominant adenopathy or fluid collection. Pulmonary parenchyma: Evaluation of the lungs is limited due to dependent and expiratory changes. No consolidation or dominant measurable mass. Pleura: No effusion or pneumothorax. Heart: The heart is not dilated. No coronary artery calcifications are seen. Aorta: Thoracic aorta non-dilated. No aneurysm. No dissection. Upper abdomen: Unremarkable. Bones: Unremarkable for age. IMPRESSION: No evidence of pulmonary embolism. No visible infiltrates. RADIATION DOSE DELIVERED: 437.77mGy.cm Total DLP DATA REPOSITORY: All CT scans at this facility are submitted to the National Radiology Data Registry (NRDR) Dose Index Registry (DIR) with the [employer] (ACR). RADIATION OPTIMIZATION: All CT scans at this facility use at least one of these dose optimization te chniques: automated exposure control; mA and/or kV adjustment per patient size (includes targeted exa ms where dose is matched to clinical indication); or iterative reconstruction.
[2021-06-13] MEDS: Albuterol/Ipratropium 3 ML UPD VIAL 6 ML UPD (13:47)
[2021-06-13 14:07] LABS: COVID-19 PCR POSITIVE (Negative)
[2021-06-13 14:14] LABS: Source Nasal/Nares
[2021-06-13 16:24] LABS: Troponin I < 50 ng/L (<or=60)
--- NOTE | 2021-06-13 16:32 | ED.GENADUL_ITS ---
Discharge Plan Disposition Patient Disposition: HOME Condition: Good Discharge Details Clinical Impression: COVID-19, Chest pain Primary Care Provider: Pati Gaona ED Provider: Glenn Huerta Home Meds and New Rx's Prescriptions: Continued hydroxyzine HCl 25 mg tablet 25 mg PO QID PRNRF: 0 magnesium oxide 500 mg tablet 500 mg PO DAILY RF: 0 ibuprofen 200 mg capsule 200 mg PO TID PRNRF: 0 lorazepam 0.5 mg tablet 0.5 mg PO DAILY PRNRF: 0 naratriptan 2.5 mg tablet 2.5 mg PO DAILY PRNRF: 0 eletriptan 20 mg tablet 20 mg PO DAILY PRNRF: 0 Plexus Probio-5 tablet RF: 0 Discharge Instructions Instructions: Chest Pain (ED), COVID-19 (Coronavirus Disease 2019) (ED) Additional Instructions: At this time your chest CAT scan shows no evidence of pneumonia or other significant abnormality. Your heart work-up shows no signs of a heart attack. I suspect the pain is secondary to the irritation from COVID. Please take Ty lenol or Motrin as needed for pain. Continue to monitor your oxygen levels at home. If you notice any worsening of your symptoms, or any new symptoms such as vomiting, diarrhea, fever, chills, shortness of breath, chest pain, numbness, weakness, or fainting , please return immediately to the emergency department for reevaluation. Please follow up with your primary care provider as soon as possible for reassessment and reevaluation. As always, it was a pleasure participating in your medical care today. Referrals: Pati Gaona MD [Primary Care Provider] - Discharge Data Discharge Date/Time-TO BE ENTERED AT DEPARTURE: 06/13/21 16:14 Medical Decision Making 51-year-old female with a past medical history of recent COVID diagnosis for the last few days presents today with mild chest pain shortness of breath. She denies history of blood clots. She is not on estrogen. She denies any tenderness in her lower extremities or significant swelling. She denies any vomiting or diarrhea. She denies any history of cardiac disease in the past. She denies any arm neck or shoulder pain. She describes the pain as achy in the center of her chest. Seems to be consistent and not related to exertion. No other modifying factors. She did take an albuterol treatment at home and she states that this did not help much. It did cause her heart rate to go up though. She denies any current tobacco abuse. She does have a family history of cardiac disease in her elderly father. She denies any recent long trips surgeries or procedures. Physical exam demonstrates mild wheeze in the right lung field. No tachypnea or hypoxemia. Concern for reactive airway disease, PE is also on the differential and COVID-pneumonia. We will get a CT scan, evaluate for cardiac etiology, monitor closely and reassess. 5 PM Bed laboratory work-up including initial and repeat troponin have returned unremarkable, EKG stable. No evidence of STEMI. CTA is negative for pulmonary embolism or infiltrates. COVID test is positive. proBNP is normal suggesting no signs of cardiac strain. Patient feels well. She was given breathing treatments, wheeze improved. Oxygenation is remained excellent. She did have an episode of increased heart rate after the breathing treatments and states that she is notably sensitive to albuterol. At this time with negative serial troponins, stable EKG, unremarkable CTA and proBNP, feel the patient is stable for discharge home. Does have pulse oximeter recommend getting at home. Suspect that the achiness is secondary to reactive airway disease in conjunction with mild COVID pleural irritation. Discussed red flags for which to return. I have extensively reviewed the treatment plan and discharge instructions with the patient. I have addressed all patient concerns at this time. The patient was made aware of what symptoms to monitor for that would warrant a return to the emergency department. Discussed the plan with the patient, they demonstrate verbal understanding and agreement with our assessment and plan at this time. The documentation in this chart was dictated using [employer] dictation software. Please excuse any dictation errors. FINDINGS: Pulmonary Arteries: No evidence of filling defect to suggest pulmonary emboli. Tracheobronchial tree: Patent where visualized. Mediastinum and Sammi: No dominant adenopathy or fluid collection. Pulmonary parenchyma: Evaluation of the lungs is limited due to dependent and expiratory changes. No consolidation or dominant measurable mass. Pleura: No effusion or pneumothorax. Heart: The heart is not dilated. No coronary artery calcifications are seen. Aorta: Thoracic aorta non-dilated. No aneurysm. No dissection. Upper abdomen: Unremarkable. Bones: Unremarkable for age. IMPRESSION: No evidence of pulmonary embolism. No visible infiltrates. HPI General Date/Time Provider Initiated Documentation: 06/13/21 12:06 . HPI Narrative: 51-year-old female with a past medical history of recent COVID diagnosis for the last few days presents today with mild chest pain shortness of breath. She denies history of blood clots. She is not on estrogen. She denies any tenderness in her lower extremities or significant swelling. She denies any vomiting or diarrhea. She denies any history of cardiac disease in the past. She denies any arm neck or shoulder pain. She describes the pain as achy in the center of her chest. Seems to be consistent and not related to exertion. No other modifying factors. She did take an albuterol treatment at home and she states that this did not help much. It did cause her heart rate to go up though. She denies any current tobacco abuse. She does have a family history of cardiac disease in her elderly father. She denies any recent long trips surgeries or procedures. Related Data Home Medications Medication Instructions Recorded Confirmed Plexus Probio-5 07/03/20 eletriptan 20 mg PO DAILY PRN 07/03/20 06/13/21 lorazepam 0.5 mg PO DAILY PRN 07/03/20 06/13/21 naratriptan 2.5 mg PO DAILY PRN 07/03/20 06/13/21 hydroxyzine HCl 25 mg tablet 25 mg PO QID PRN 06/10/21 06/13/21 ibuprofen 200 mg capsule 200 mg PO TID PRN cap 06/10/21 06/13/21 magnesium oxide 500 mg tablet 500 mg PO DAILY 06/10/21 06/13/21 Allergies Allergy/AdvReac Type Severity Reaction Status Date / Time sumatriptan succinate Allergy Intermediate head Unverified 06/13/21 12:23 [From Imitrex] numbness sumatriptan [From Imitrex] AdvReac Intermediate head Unverified 06/13/21 12:23 numbness tramadol AdvReac Nausea Verified 06/13/21 12:23 General Stated Complaint: SOB MELISSA: 2 Review of Systems All systems reviewed & are unremarkable except as noted in HPI and below PFSH All Active Problems COVID-19 (Acute) Chest pain (Acute) COVID-19 (Acute) Pain in pelvis (Acute) Mixed stress and urge urinary incontinence (Acute) Trochanteric bursitis, left hip (Acute) Vaginal atrophy (Acute) Medical History Anxiety and depression Buttock pain Chronic constipation Dysphagia History of nephrolithiasis Leg edema, right Migraine headache Neck pain on right side Pain, joint, hip Right calf pain Sore throat Spondylosis, cervical Urinary incontinence Surgical History H/O: hysterectomy History of prior ablation treatment CERVICAL Hx of cholecystectomy Social History Smoking/Tobacco Use Status: Former Tobacco Use Quit Date: 09/29/01 Smoking risk assessment performed?: Yes Alcohol Intake: current Alcohol Intake frequency: holidays/special occasions only Drug use: Never Substance use type: does not use Household members: children Housing: house Number of Children: 1 current occupation: Human Resources What type of physical activity do you participate in: walking Duration: 60-90 minutes/day Frequency: daily Do you feel safe at home: Yes Do you feel safe in your relationship?: Yes Exam Narrative Exam Narrative: 1.Const: Well-nourished, Well-developed, appearing stated age 2.Eyes: PERRL, no conjunctival injection, and symmetrical lids. 3.ENT: Atraumatic external nose and ears. Moist MM. Neck: Symmetric, trachea midline, No thyromegaly. 4.CVS: +S1/S2, No murmurs or gallops. Peripheral pulses 2+ and equal in all extremities. Brisk capillary refill in all extremities. 5.RESP: Unlabored respiratory effort. Clear to auscultation bilaterally. No wheezes rales or rhonchi 6.GI: Soft, Nontender/Nondistended, No hepatosplenomegaly. No guarding or rebound. 7.MSK: Normocephalic/Atraumatic, Extremities w/o deformity or ttp No cyanosis or clubbing, Normal movement of all extremities. No calf tenderness. 8.Skin: Warm, Dry. No rashes or lesions. 9.Neuro: information management officer II-XII grossly intact. Sensation grossly intact, no focal neurologic deficits. 10.Psych: (AAO) x3. Appropriate mood and affect Course Vital Signs Vital signs: Vital Signs Temperature 37 C 06/13/21 12:14 Pulse 92 H 06/13/21 12:14 Respiratory Rate 20 06/13/21 12:14 Blood Pressure 132/96 H 06/13/21 12:14 Pulse Oximetry 94 06/13/21 12:14 Temperature 37 C 06/13/21 12:14 Temperature Source Temporal Artery Scan 06/13/21 12:14 Pulse 117 H 06/13/21 16:03 Pulse 113 H 06/13/21 16:20 Respiratory Rate 19 06/13/21 16:20 Respiratory Effort 06/13/21 12:27 Respiratory Depth Normal 06/13/21 12:27 Respiratory Pattern Normal 06/13/21 12:27 Blood Pressure 106/73 06/13/21 16:03 Blood Pressure Position Supine 06/13/21 12:14 Pulse Oximetry 97 06/13/21 16:20 Oxygen Delivery Method Room Air 06/13/21 16:03 Oxygen Flow Rate 0 06/13/21 16:03 Pain Level 5 06/13/21 12:14 Lab/Test Results Lab/Test Results: Laboratory Tests Range/Units 06/13/21 06/13/21 06/13/21 12:41 12:45 12:45 WBC (4.4-10.8) 10^3/uL RBC (3.93-5.22) 10^6/uL Hgb (11.2-15.7) g/dL Hct (36.0-46.0) % MCV (80-95) fL MCH (27.0-33.0) pg MCHC (32.0-36.0) % RDW (11.7-14.6) % Plt Count (130-400) 10^3/uL MPV (8.0-11.0) fL Immature Gran % Neutrophils % Lymphocytes % Monocytes % Eosinophils % Basophils % Nucleated RBC % % Absolute Neutrophils (1.2-6.7) 10^3/uL Absolute Lymphocytes (1.2-3.4) 10^3/uL Absolute Monocytes (0.1-0.8) 10^3/uL Absolute Eosinophils (0.0-0.7) 10^3/uL Absolute Basophils (0.0-0.2) 10^3/uL VBG pH (7.31-7.41) 7.39 VBG pCO2 (41-51) mmHg 48 VBG pO2 mmHg 42 VBG HCO3 (23-28) mmol/L 29 H VBG Total CO2 (24-29) mmol/L 26 VBG O2 Saturation % 78 VBG Base Excess (-2-3) mmol/L 4 H Sodium (136-145) mmol/L Potassium (3.5-5.1) mmol/L Chloride (98-107) mmol/L Carbon Dioxide (21.0-32.0) mmol/L Anion Gap (3-11) mmol/L BUN (7-18) mg/dL Creatinine (0.55-1.02) mg/dL Estimated GFR/1.73 m2 (mL/min/1.73m2) Glucose (74-106) mg/dL Calcium (8.5-10.1) mg/dL Total Bilirubin (0.2-1.0) mg/dL AST (15-37) U/L ALT (14-59) U/L Alkaline Phosphatase (46-116) U/L Troponin I (<or=60) ng/L < 50 NT-Pro-B Natriuret Pep (<300) pg/mL 14 Total Protein (6.4-8.2) g/dL Albumin (3.4-5.0) g/dL COVID-19 Source Nasal/Nares SARS-CoV-2 (PCR) (Negative) POSITIVE A* Range/Units 06/13/21 06/13/21 06/13/21 12:45 12:45 16:06 WBC (4.4-10.8) 10^3/uL 6.16 RBC (3.93-5.22) 10^6/uL 4.47 Hgb (11.2-15.7) g/dL 13.6 Hct (36.0-46.0) % 40.2 MCV (80-95) fL 89.9 MCH (27.0-33.0) pg 30.4 MCHC (32.0-36.0) % 33.8 RDW (11.7-14.6) % 11.5 L Plt Count (130-400) 10^3/uL 235 MPV (8.0-11.0) fL 8.6 Immature Gran % 0.2 Neutrophils % 52.7 Lymphocytes % 37.2 Monocytes % 5.2 Eosinophils % 4.2 Basophils % 0.5 Nucleated RBC % % 0 Absolute Neutrophils (1.2-6.7) 10^3/uL 3.25 Absolute Lymphocytes (1.2-3.4) 10^3/uL 2.29 Absolute Monocytes (0.1-0.8) 10^3/uL 0.32 Absolute Eosinophils (0.0-0.7) 10^3/uL 0.26 Absolute Basophils (0.0-0.2) 10^3/uL 0.03 VBG pH (7.31-7.41) VBG pCO2 (41-51) mmHg VBG pO2 mmHg VBG HCO3 (23-28) mmol/L VBG Total CO2 (24-29) mmol/L VBG O2 Saturation % VBG Base Excess (-2-3) mmol/L Sodium (136-145) mmol/L 139 Potassium (3.5-5.1) mmol/L 3.8 Chloride (98-107) mmol/L 102 Carbon Dioxide (21.0-32.0) mmol/L 28.5 Anion Gap (3-11) mmol/L 8.5 BUN (7-18) mg/dL 14 Creatinine (0.55-1.02) mg/dL 0.7 Estimated GFR/1.73 m2 (mL/min/1.73m2) >= 60.00 Glucose (74-106) mg/dL 89 Calcium (8.5-10.1) mg/dL 9.3 Total Bilirubin (0.2-1.0) mg/dL 0.5 AST (15-37) U/L 24 ALT (14-59) U/L 40 Alkaline Phosphatase (46-116) U/L 56 Troponin I (<or=60) ng/L < 50 NT-Pro-B Natriuret Pep (<300) pg/mL Total Protein (6.4-8.2) g/dL 8.2 Albumin (3.4-5.0) g/dL 4.3 COVID-19 Source SARS-CoV-2 (PCR) (Negative)
== END 2021-06-13 16:14 | disposition home or self-care (01) ==
PROVIDERS: Emergency Provider Student in an Organized Health Care Education/Training Program; PCP Family Medicine
DX: U07.1 COVID-19 (principal); R07.9 Chest pain, unspecified; R06.02 Shortness of breath; Z87.891 Personal history of nicotine dependence
CPT/HCPCS: 36415; 71275; 80053; 82805; 87635; 93005; 94640; 96360; 96361; 99285; 83880; 84484; 85025; 93010; 99284; J3490; J7620

== ENCOUNTER 2021-06-25 09:13 | Outpatient (CLI) | payer OTHER, SELFPAY ==
--- NOTE | 2021-06-25 09:00 | DI.RAD_ITS ---
Exam(s) XR HIP LT COMPLETE AP PELVIS EXAM: XR HIP LT COMPLETE AP PELVIS CLINICAL HISTORY: left hip pain. TECHNIQUE: 2D digital imaging was performed of the left hip. Two views were obtained. AP pelvis an d lateral left hip views were obtained. COMPARISON: CR XR HIP LT COMPLETE AP PELVIS from 03/23/2020 FINDINGS: BONES: No acute fracture is present. No bony destructive lesion is seen. JOINTS: No dislocation present. SOFT TISSUE: Normal. IMPRESSION: Unremarkable radiographs of the left hip. Unremarkable radiographs of the pelvis DATA REPOSITORY: RADIATION DOSE DELIVERED:
== END 2021-06-25 09:14 | disposition home or self-care (01) ==
LOC: DIORS 09:13
PROVIDERS: PCP Family Medicine; Referring Provider Family Medicine; Visit Provider Physician Assistant
DX: M25.552 Pain in left hip (principal); M70.62 Trochanteric bursitis, left hip
CPT/HCPCS: 73502

== ENCOUNTER 2021-07-04 02:04 | Outpatient (CLI) | payer OTHER, SELFPAY ==
--- NOTE | 2021-07-04 14:12 | DI.RAD_ITS ---
Exam(s) RF JOINT INJECTION FLUORO GUID EXAM: RF JOINT INJECTION FLUORO GUID CLINICAL HISTORY: L HIP PAIN,trochanteric bursitis, lt, m70.62,fluoro guided injection TECHNIQUE: 2D and realtime digital imaging was performed. COMPARISON: No exams were available for comparison FINDINGS: Fluoroscopy was utilized by Dr. Baptiste during left hip injection. Hard copy shows intra-articular injection of the left hip. IMPRESSION: RADIATION DOSE DELIVERED: joanne Sampson= 0.90 mGy Total DLP
[2021-07-04] MEDS: methylPREDNISolone ACETATE 80 MG/ML VIAL IM (14:20)
[2021-07-04] MEDS: Omnipaque 300 MG/ML 10 ML BTL IJ (14:22)
[2021-07-04] MEDS: Bupivacaine 0.5% Pres-Free 10 ML VIAL 6 ML IJ (14:25)
--- NOTE | 2021-07-04 14:31 | W.PROCNOTE ---
Date of service: 07/04/21 Time of Service: 14:16 Procedure Note Procedure: Left Hip Injection with Fluoroscopic Guidance Surgeon/Proceduralist/Physician: Iban Baptiste Procedure Diagnosis: Left Hip Osteoarthritis Procedure Indications: Mikki has had persistent pain of the LEFT hip and groin. Noninvasive measures have been tried. To serve as both diagnostic and therapeutic, an injection under fluoroscopy was recommended. I had discussed the risks of the procedure and the patient elected to proceed. Procedure Description: Mikki was greeted in the flouroscopy room. The correct side was identified and the consent was reviewed with the patient and signed. The patient was then placed in the supine position on the fluoroscopy table. The LEFT hip was then prepped with Chloraprep. The anterolateral injection starting point was identiifed by bony landmarks and fluoroscopy. The skin and soft tissue in the tract of the injection was anesthetized with 1% Lidocaine. A spinal needle was then inserted deep into the hip joint at the level of the lateral femoral neck under fluoroscopic guidance. A small amount of Omnipaque solution was injected to confirm intraarticular placement. Once confirmed, the hip was injected with 6cc of 0.5% Bupivicaine and 80mg of Depo-Medrol. A bandaid was placed on the injection site. The patient tolerated the procedure well.
== END 2021-07-04 02:24 ==
LOC: DI 02:04
PROVIDERS: PCP Family Medicine; Visit Provider Student in an Organized Health Care Education/Training Program
DX: M16.12 Unilateral primary osteoarthritis, left hip (principal); R10.32 Left lower quadrant pain; M25.552 Pain in left hip
CPT/HCPCS: 20610; 77002; J1040

== ENCOUNTER → 2021-07-17 02:05 | Outpatient (CLI) | payer OTHER, SELFPAY ==
--- NOTE | 2021-07-17 07:00 | DI.RAD_ITS ---
Exam(s) RF BARIUM SWALLOW EXAM: RF BARIUM SWALLOW CLINICAL HISTORY: Pain at level of thyrohyoid membrane with swallowing,m54.12,r13.12,dysphagi TECHNIQUE: 2D and realtime digital imaging was performed. CONTRAST MATERIAL: Oral barium contrast was administered. COMPARISON: No exams were available for comparison FINDINGS: CHEST X-RAY: The heart and pulmonary vasculature are within normal limits. The lungs are clear. No pl eural effusion or pneumothorax is present. The bones are within normal limits for the patient's age. ESOPHAGRAM: The esophagus is patent with no evidence for erosions, fold thickening, strictures, or ma sses. With regards to the motility, there is a normal primary stripping wave. No tertiary contraction s were noted. There is no hiatal hernia or gastroesophageal reflux. A barium tablet passed into the s tomach without complication. IMPRESSION: Normal esophogram RADIATION DOSE DELIVERED: joanne Sampson=10.3 mGy
[2021-07-17] MEDS: Barium Sulfate 60% W/V 355 ML BTL PO (09:53)
[2021-07-17] MEDS: Simethicone/Sod Bicarb/Cit Ac, 4 gram PACKET 1 PACKET PO (09:53)
[2021-07-17] MEDS: Barium Sulfate 700 MG TAB PO (09:54)
== END ==
PROVIDERS: PCP Family Medicine; Visit Provider Otolaryngology
DX: M54.2 Cervicalgia (principal); R13.12 Dysphagia, oropharyngeal phase
CPT/HCPCS: 74221; J3490

== ENCOUNTER 2021-10-02 01:09 | Outpatient (CLI) | payer OTHER, SELFPAY ==
[2021-10-02 10:25] LABS: Source Nasal/Nares
[2021-10-02 14:22] LABS: COVID-19 PCR Negative (Negative)
== END 2021-10-02 01:10 | disposition home or self-care (01) ==
LOC: LBO 01:09
PROVIDERS: PCP Family Medicine; Visit Provider Student in an Organized Health Care Education/Training Program
DX: Z20.822 Contact with and (suspected) exposure to COVID-19 (principal); Z01.818 Encounter for other preprocedural examination
CPT/HCPCS: 87635

== ENCOUNTER 2021-10-04 06:10 | Day surgery (SDC) | payer OTHER, SELFPAY ==
[2021-10-04] VITALS (10 sets, daily range): BP systolic 86–115; BP diastolic 63–93; PULSE 69–86; RESP 9–18; TEMP 36.1–37.2; O2SAT 93–100; BMI 24.7
--- NOTE | 2021-10-04 06:43 | W.ANESPRE ---
General Info Date of Service Date Performed: 10/04/21 Height: 5 ft 5 in Weight: 67.5 kg Body Mass Index (BMI): 24.7 Surgical Procedure: Operation Date: 10/04/21 07:50 Proposed Procedure Side Surgeon p Hip Arthroscopy w/Labral Debridement vs. Repair and Poss. Femoroplasty/ Endoscopic Iliotibial Band Release w/ Trochanteric Bursectomy Left Yoel Jay MD s Hip Endoscopy Yoel Jay MD Meds Allergies and Home Medications Allergies Allergy/AdvReac Type Severity Reaction Status Date / Time sumatriptan succinate Allergy Intermediate head Unverified 10/04/21 06:29 [From Imitrex] numbness sumatriptan [From Imitrex] AdvReac Intermediate head Verified 10/04/21 06:30 numbness tramadol AdvReac Nausea Verified 10/04/21 06:29 Home Medication Medication Instructions Recorded Plexus Probio-5 4 tab PO DAILY 07/03/20 eletriptan 20 mg tablet 20 mg PO DAILY PRN 07/03/20 lorazepam 0.5 mg tablet 0.5 mg PO DAILY PRN 07/03/20 naratriptan 2.5 mg tablet 2.5 mg PO DAILY PRN 07/03/20 hydroxyzine HCl 25 mg tablet 25 mg PO QID PRN 06/10/21 ibuprofen 200 mg capsule 200 mg PO TID PRN cap 06/10/21 magnesium oxide 500 mg tablet 500 mg PO DAILY 06/10/21 celecoxib 200 mg capsule 200 mg PO DAILY PRN #90 cap 09/11/21 diphenhydramine 25 1 tab PO PRN PRN 10/04/21 mg-acetaminophen 500 mg tablet (Tylenol PM Extra Strength) Current Visit Medications: Current Medications Generic Name Dose Route Start Last Admin Trade Name Freq PRN Reason Stop Dose Admin Ringer's Solution 1,000 mls @ 100 mls/hr 10/04/21 06:00 IV 10/29/21 23:59 INFUSION ANITHA Cefazolin Sodium/Dextrose 2 gm in 50 mls @ 100 mls/hr 10/04/21 06:00 Ancef Duplex IVPB 10/04/21 23:59 PREOP ANITHA IV Miscellaneous Supplies 1 each 10/04/21 06:00 Iv Access IV 10/29/21 23:59 DIRECTED ANITHA Sodium Chloride 0 ml 10/04/21 06:00 Normal Saline Flush 10 Ml Syr IV 10/29/21 23:59 PRN PRN Sodium Chloride 0 ml 10/04/21 06:00 Normal Saline 10 Ml Vial IJ 10/29/21 23:59 DIRECTED PRN Sterile Water 0 ml 10/04/21 06:00 Water,Injection,Sterile 10 Ml Vial IJ 10/29/21 23:59 DIRECTED PRN PFSH Active Problems Active Problems: Problem Status Onset Code Mixed stress and urge urinary incontinence N39.46 Vaginal atrophy N95.2 Trochanteric bursitis, left hip M70.62 Pain in pelvis R10.2 COVID-19 U07.1 COVID-19 U07.1 Cervicalgia M54.2 Dysphagia, oropharyngeal R13.12 Left groin pain R10.32 Tear of left acetabular labrum S73.192A Iliotibial band syndrome of left side M76.32 Tendinopathy of left gluteus medius M67.952 Left-sided ischial pain M25.552 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, G89.29 Medical History Medical History Anxiety and depression Buttock pain Chronic constipation Dysphagia History of nephrolithiasis Leg edema, right Migraine headache Neck pain on right side Pain, joint, hip Right calf pain Sore throat Spondylosis, cervical Urinary incontinence Surgical History Surgical History H/O: hysterectomy 07/2009 History of bladder surgery sling surgery History of prior ablation treatment CERVICAL 07/2020 Hx of cholecystectomy 2003 Tobacco Smoking/Tobacco Use Status: Former Tobacco Use Alcohol Alcohol Intake: current Alcohol intake frequency: holidays/special occasions only Substance Use Substance use: Never Substance use type: does not use Vital Signs and Lab Results Vital Signs Most Recent Vital Signs in EMR: Most Recent Vital Signs Temp Pulse Resp BP Pulse Ox 37.2 C 86 16 115/77 100 10/04/21 06:20 10/04/21 06:20 10/04/21 06:20 10/04/21 06:20 10/04/21 06:20 Lab Results Blood Type / Crossmatch: No Data to Display Complete Blood Count: No Data to Display Complete Metabolic Panel: No Data to Display Liver Function Panel: No Data to Display Coagulation Panel: No Data to Display Cardiac Panel: No Data to Display Arterial Blood Gas: No Data to Display Venous Blood Gas: No Data to Display Pancreas Panel: No Data to Display Thyroid Panel: No Data to Display Infectious Disease: Coronavirus (COVID-19)(PCR) Negative (Negative) 10/02/21 08:32 10/02/21 Coronavirus 2019 Source Nasal/Nares 10/02/21 08:32 10/02/21 Blood Cultures: No Data to Display Toxicology Panel: No Data to Display Panel: No Data to Display Imaging and Studies Imaging and Studies Study information below may be from another EMR and interpreted by another provider. Please see original notes in EMR for more complete details. EKG Summary: DATE/TIME OF SERVICE: 06/13/21 1232 : 1970PERFORMING LOCATION: ER APPROVED REPORT Exam: Resting ECG Reason for Exam: chest pain Patient Location: E HR:90 bpm ECG Measurements Heart Rate 90 AXIS AL 170 P 32 QRSd 75 QRS 44 QT 347 T34 QTc 425 Conclusion Sinus rhythm...normal P axis, V-rate 60- 99 Physician: no stemi, q wave in lead 3 Anesthesia Assessment and Plan Anesthesia History Personal History: No History of Anesthesia Complications Family History: No Family History of Anesthesia Complications Implantable Cardiac Device Does patient have a Pacemaker or an ICD?: No
--- NOTE | 2021-10-04 06:49 | W.ANESPRE ---
General Info Date of Service Date Performed: 10/04/21 Height: 5 ft 5 in Weight: 67.5 kg Body Mass Index (BMI): 24.7 Surgical Procedure: Operation Date: 10/04/21 07:50 Proposed Procedure Side Surgeon p Hip Arthroscopy w/Labral Debridement vs. Repair and Poss. Femoroplasty/ Endoscopic Iliotibial Band Release w/ Trochanteric Bursectomy Left Yoel Jay MD s Hip Endoscopy Yoel Jay MD Meds Allergies and Home Medications Allergies Allergy/AdvReac Type Severity Reaction Status Date / Time sumatriptan succinate Allergy Intermediate head Unverified 10/04/21 06:29 [From Imitrex] numbness sumatriptan [From Imitrex] AdvReac Intermediate head Verified 10/04/21 06:30 numbness tramadol AdvReac Nausea Verified 10/04/21 06:29 Home Medication Medication Instructions Recorded Plexus Probio-5 4 tab PO DAILY 07/03/20 eletriptan 20 mg tablet 20 mg PO DAILY PRN 07/03/20 lorazepam 0.5 mg tablet 0.5 mg PO DAILY PRN 07/03/20 naratriptan 2.5 mg tablet 2.5 mg PO DAILY PRN 07/03/20 hydroxyzine HCl 25 mg tablet 25 mg PO QID PRN 06/10/21 magnesium oxide 500 mg tablet 500 mg PO DAILY 06/10/21 aspirin 81 mg tablet,delayed 81 mg PO DAILY 14 Days #14 tab 10/04/21 release diphenhydramine 25 1 tab PO PRN PRN 10/04/21 mg-acetaminophen 500 mg tablet (Tylenol PM Extra Strength) naproxen 250 mg tablet 250 - 500 mg PO BID PRN #40 tab 10/04/21 oxycodone 5 mg tablet 5 - 10 mg PO Q4H PRN #18 tab MDD 10/04/21 30 mg Current Visit Medications: Current Medications Generic Name Dose Route Start Last Admin Trade Name Freq PRN Reason Stop Dose Admin Ringer's Solution 1,000 mls @ 100 mls/hr 10/04/21 06:00 IV 10/29/21 23:59 INFUSION ANITHA Cefazolin Sodium/Dextrose 2 gm in 50 mls @ 100 mls/hr 10/04/21 06:00 Ancef Duplex IVPB 10/04/21 23:59 PREOP ANITHA IV Miscellaneous Supplies 1 each 10/04/21 06:00 Iv Access IV 10/29/21 23:59 DIRECTED ANITHA Sodium Chloride 0 ml 10/04/21 06:00 Normal Saline Flush 10 Ml Syr IV 10/29/21 23:59 PRN PRN Sodium Chloride 0 ml 10/04/21 06:00 Normal Saline 10 Ml Vial IJ 10/29/21 23:59 DIRECTED PRN Sterile Water 0 ml 10/04/21 06:00 Water,Injection,Sterile 10 Ml Vial IJ 10/29/21 23:59 DIRECTED PRN PFSH Active Problems Active Problems: Problem Status Onset Code Mixed stress and urge urinary incontinence N39.46 Vaginal atrophy N95.2 Trochanteric bursitis, left hip M70.62 Pain in pelvis R10.2 COVID-19 U07.1 COVID-19 U07.1 Cervicalgia M54.2 Dysphagia, oropharyngeal R13.12 Left groin pain R10.32 Tear of left acetabular labrum S73.192A Iliotibial band syndrome of left side M76.32 Tendinopathy of left gluteus medius M67.952 Left-sided ischial pain M25.552 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, G89.29 Medical History Medical History Anxiety and depression Buttock pain Chronic constipation Dysphagia History of nephrolithiasis Leg edema, right Migraine headache Neck pain on right side Pain, joint, hip Right calf pain Sore throat Spondylosis, cervical Urinary incontinence Surgical History Surgical History H/O: hysterectomy 07/2009 History of bladder surgery sling surgery History of prior ablation treatment CERVICAL 07/2020 Hx of cholecystectomy 2003 Tobacco Smoking/Tobacco Use Status: Former Tobacco Use Alcohol Alcohol Intake: current Alcohol intake frequency: holidays/special occasions only Substance Use Substance use: Never Substance use type: does not use Vital Signs and Lab Results Vital Signs Most Recent Vital Signs in EMR: Most Recent Vital Signs Temp Pulse Resp BP Pulse Ox 37.2 C 86 16 115/77 100 10/04/21 06:20 10/04/21 06:20 10/04/21 06:20 10/04/21 06:20 10/04/21 06:20 Lab Results Blood Type / Crossmatch: No Data to Display Complete Blood Count: No Data to Display Complete Metabolic Panel: No Data to Display Liver Function Panel: No Data to Display Coagulation Panel: No Data to Display Cardiac Panel: No Data to Display Arterial Blood Gas: No Data to Display Venous Blood Gas: No Data to Display Pancreas Panel: No Data to Display Thyroid Panel: No Data to Display Infectious Disease: Coronavirus (COVID-19)(PCR) Negative (Negative) 10/02/21 08:32 10/02/21 Coronavirus 2019 Source Nasal/Nares 10/02/21 08:32 10/02/21 Blood Cultures: No Data to Display Toxicology Panel: No Data to Display Panel: No Data to Display Imaging and Studies Imaging and Studies Study information below may be from another EMR and interpreted by another provider. Please see original notes in EMR for more complete details. EKG Summary: DATE/TIME OF SERVICE: 06/13/21 1232 : 1970PERFORMING LOCATION: ER APPROVED REPORT Exam: Resting ECG Reason for Exam: chest pain Patient Location: E HR:90 bpm ECG Measurements Heart Rate 90 AXIS IA 170 P 32 QRSd 75 QRS 44 QT 347 T34 QTc 425 Conclusion Sinus rhythm...normal P axis, V-rate 60- 99 Physician: no stemi, q wave in lead 3 Anesthesia Assessment and Plan Anesthesia History Personal History: No History of Anesthesia Complications Family History: No Family History of Anesthesia Complications Exercise Tolerance Exercise Tolerance: Metabolic Equivalents>4 Pertinent Negatives Pertinent Negatives: No Major Cardiovascular Symptoms or Complaints and No Major Pulmonary Symptoms or Complaints Cardiac & Pulmonary Exam Cardiac Exam: Normal S1/S2 Heart Sounds Pulmonary Exam: Clear Bilateral Breath Sounds Implantable Cardiac Device Does patient have a Pacemaker or an ICD?: No Airway Exam Known Difficult Airway: No Mallampati Class: 2 Mouth Opening: Normal (> 3cm) Thyromental Distance: Greater than 3 cm Neck Range of Motion: Full ROM Neck Circumference: Normal Teeth Condition: Normal Dentition ASA Classification ASA Score: ASA 2 Emergency Case?: No NPO Status NPO Status: NPO Clears >2 hours, Solids >8 hours Status Status: History of Hysterectomy Anesthesia Plan Resuscitation Status: Full Code Anesthesia Technique: General Anesthesia Airway Planned: Endotracheal Tube Pain Management: Surgeon and patient request nerve block Monitors Used: Standard Monitors
[2021-10-04] MEDS: Lactated Ringers 1,000 ML 100 ML IV ×2 (07:08→10:58)
--- NOTE | 2021-10-04 07:30 | DI.RAD_ITS ---
Exam(s) XR HIP LT IN OR EXAM: XR HIP LT IN OR CLINICAL HISTORY: ANTERIOR AND POSTERIOR LEFT HIP PAIN. TECHNIQUE: 2D digital imaging was performed. COMPARISON: MR PELVIS ADULT from 08/29/2021 FINDINGS: Fluoroscopy was provided during orthopedic procedure left hip. See report for details Total fluoroscopy time= 34 seconds Total cumulative dose= 5.1233mGy IMPRESSION: DATA REPOSITORY: RADIATION DOSE DELIVERED:
[2021-10-04] MEDS: ceFAZolin 2 GM/50 ML BAG IVPB (08:00)
--- NOTE | 2021-10-04 08:11 | W.ANESNERVE ---
Nerve Block Single Injection Procedure Date and Time Date Performed: 10/04/21 Procedure Start: 07:58 Location Where Procedure Performed Procedure Location: Operating Room Procedure Stop: 08:03 Reason Performed: Postoperative Analgesia Requesting Provider: Yoel Jay Timeout Performed Timeout Performed: Yes Monitoring Used ECG, Blood Pressure, SpO2 and ETCO2 Sterility Sterility: Hand Hygiene, Surgical Cap, Surgical Mask, Sterile Gloves and Chlorhexidine Sedation Given During Procedure Sedation Given (Indicate Dose Given): No Sedation given Patient Mental Status Patient Mental Status: Performed under general anesthesia Nerve Block 1st Nerve Block: Laterality: Left Block Type: DELORES Needle / Catheter Used: 100mm SonoPlex II Local Anesthetic Bolus (Indicate Dose Given): Bupivacaine 0.5% Dose:: 20 mL Additives (Indicate Dose Given): Epinephrine to make 1:400,000 (2.5mcg/ml) Dose:: 2.5 mcg/ml, Decadron Dose:: 2 mg and Precedex Dose:: 30 mcg Ultrasound: Sterile probe cover and gel used Ultrasound Image Saved?: Yes Nerve Stimulator: Not Used Paresthesia: None Procedure Tolerated: No Complications Procedure Outcome: Successful Performed By: Carloz De Jesus
[2021-10-04] MEDS: Bupivacaine 0.25% Pres-Free 30 ML VIAL (08:45)
[2021-10-04] MEDS: Lidocaine 1.5 % Pres-Free W/EPI 1/200,000 30 ML VIAL (08:45)
[2021-10-04] MEDS: EPINEPHrine 30 MG/30 ML VIAL (10:18)
--- NOTE | 2021-10-04 10:30 | W.PM.OP ---
Date of service: 10/04/21 Time of Service: 07:30 Operative Note Operative Note DATE OF PROCEDURE: 10/04/21 PRE-OP DIAGNOSIS: Left hip 1. Labral tear 2. Femoracetabular impingement 3. Iliotibial band syndrome 4. Trochanteric bursitis POST-OP DIAGNOSIS: same PROCEDURE: Left hip 1. Arthroscopic labral repair, CPT# 45084 2. Arthroscopic femoroplasty, CPT# 20303 3. Endoscopic iliotibial band release, CPT# 55599 4. Endoscopic trochanteric bursectomy, CPT# 37567 SURGEON: Yoel Jay ADVERTISING REPRESENTATIVE: Annette Torres ANESTHESIA TYPE: Local By Surgeon, General LMA/ETT and Primary Nerve Block (DELORES) Refer to Anesthesia Record ESTIMATED BLOOD LOSS: 15 COMPLICATIONS: None Patient was transported to: PACU Patient's condition: stable Implants: 1.8 mm knotless FiberTak x #1 Indications: Please see complete medical record for details. Findings: Focal anterior superior chondral labral junction labral tear. Small femoral head neck area of bony protuberance and adjacent cartilage thinning and bone softening. Remainder femoral head acetabular articular cartilage intact. Moderately thickened iliotibial band. Inflamed trochanteric bursitis. Intact gluteal tendons. Procedure Description: In the operating room, general and regional anesthesia were induced. The patient was positioned supine on the [place] table. All bony prominences were well-padded. Preoperative antibiotics were administered. The correct patient, procedure, and side of the procedure were all verified prior to incision. Fluoroscopically, an anterolateral portal was established with hip under about 1 cm distraction. Traction start time as noted. Through the spinal needle, a nitinol wire was inserted and the needle removed. An 11 blade was used to create a portal sized incision about the Nitinol wire. A small 4 mm dilator was passed atraumatically over the nitinol wire through the capsule into the hip joint. The nitinol wire was removed. A 6 mm dilator was then passed over the smaller one into the hip joint and the initial dilator removed. The blunt end of a switching stick was then passed into the hip joint and the last dilator removed. The camera sleeve was then inserted over the switching stick, the switching stick removed, and the arthroscope attached to the camera sleeve. An initial dry arthroscopy of the hip joint confirmed appropriate viewing portal location about the equator laterally. Using a combination of fluoroscopic guidance and arthroscopic triangulation a modified mid anterior portal was established in a similar fashion with a spinal needle and sequential dilators. Care was taken to ensure the portal was in an appropriate position and outside the labrum. A banana blade was inserted anteriorly over half pipe. The capsule was released distal to the labrum working towards the anterolateral portal. The camera was then switched to the anterior portal, the anterolateral portal location was confirmed to be appropriate, and the banana blade brought in the anterolateral portal and the interportal capsulotomy completed. The camera was then switched back to the anterolateral portal. A complete diagnostic arthroscopy of the hip was performed with relevant findings noted above. Attention was then turned to the anterior superior labral tear. The labrum demonstrated mild fraying but otherwise intact tissue and surrounding healthy labrum and intact articular cartilage, so the decision was made to proceed with repair. The chondral labral junction was abraded to optimize healing. The mild fraying was debrided to a stable margin. Rigid cannula was inserted over the modified mid anterior portal and a small area cleared of soft tissue for suture anchor placement. The straight guide was used and drilled for fiber tack anchor. The bone was firm and the initial suture anchor did not deploy. The drill was used again and suture anchor placed. The knotless repair mechanism shuttle stitch passed around the labrum and retrieved using the alanis stitch. There was tension in the knotless sliding mechanism and the repair stitch could not be passed so the sutures were removed and and the drill guide used again in a similar position to the initial spot taking care drill in out and to clear bone followed by placement with excellent security of the fiber tack anchor. This time the knotless mechanism demonstrated appropriate sliding. The loop stitch was passed around the labrum and retrieved with a switch to its again followed by shuttling of the repair stitch create an inverted configuration. Labrum was tensioned appropriately and the repair stitch cut with a small tail. The remainder of the anterior labrum was well opposed and stable. The labral tear was well repaired. There was a small extension of the tear more superiorly but given the limited extent no additional repair was performed. The blunt end of a switching stick was left in the anterior portal, but appropriately withdrawn from hip joint. The camera was withdrawn similarly. Under direct visualization traction was gradually released at 74. The femoral head neck junction was inspected about the zone of labral injury. The hip was brought through internal rotation, external rotation, and deep flexion with rotation. There was an obvious area corresponding to the labral zone of injury along the femoral head neck of cartilage thinning delamination and bone softening that likely corresponded to slight anterior superior acetabular over coverage type femoral acetabular impingement. The switching stick used to retract the capsule distally while the assistant manager trainee position the hip in various positions internal/external rotation as well as flexion. Into rotation flexion clearly identified the lesion. The mechanical shaver was brought in and used to debride cartilage and establish margins about the bone softening for bone resection around what became an obvious small cyst from impingement. Hip position was checked again labral repair intact with no more impingement through range of motion. The limited capsulotomy had well apposed tissue ends and was not formally closed. The hip was drained of arthroscopic fluid. 20 cc of bupivacaine and lidocaine containing epinephrine was infiltrated about the subcutaneous tissue and deeply over the greater trochanter as well as the anterior lateral and a new additional distal anterolateral portal. A knife was used to incise the skin for distal anterolateral portal followed by blunt dissection subcutaneously. Under fluoroscopic guidance, a switching stick and arthroscope were inserted localizing the iliotibial band over the greater trochanter. Blunt dissection and the mechanical shaver were used to resect fat and overlying tissue about the center of the iliotibial band and carefully expose the anterior and posterior margins. Once there was adequate exposure of the IT band, the greater trochanter was again localized under fluoroscopic guidance with a spinal needle inserted through the skin down to bone. This central area was marked using the radiofrequency ablator. The banana blade was brought in and used to create a 2 cm longitudinal incision in line with the IT band fibers as well as extending it in a cruciate fashion with 2 cm incisions anteriorly and posteriorly. The radiofrequency ablator was used to achieve hemostasis. The mechanical shaver was then used to debride the IT band released edges exposing the trochanteric bursa. The mechanical shaver was then used to excise the trochanteric bursa taking care to protect musculature about the margins of the greater trochanter as well as neurovascular structures especially posteriorly. There was excellent visualization of the vastus lateralis as well as gluteus medius confirming appropriate bursa excision. The hip was brought through range of motion including internal and external rotation and there was no impinging iliotibial band tissue or remaining pathologic bursa. Viewing was adjusted and appropriate IT band release, trochanteric bursa excision, and hemostasis confirmed. Suction was used to remove fluid from the endoscopic space. The portals were closed using 3-0 Monocryl in a buried fashion. Steri-Strips were applied over the incisions followed by Xeroform, 4 x 4 gauze, an ABD pad and secured with tape. The patient awoke from anesthesia without complication and was transferred to the recovery room in a stable condition.
--- NOTE | 2021-10-04 10:33 | PDOC.DSDIS_ITS ---
Discharge Plan Disposition Patient Disposition: HOME Condition: Stable Discharge Details Reason For Visit: Left hip surgery Attending Provider: Yoel Jay Primary Care Provider: Pati Gaona Home Meds and New Rx's Prescriptions: New naproxen 250 mg tablet 250 - 500 mg PO BID PRNQty: 40 0RF Rx Instructions: take with a meal oxycodone 5 mg tablet 5 - 10 mg PO Q4H MDD 30 mg PRN (Reason: moderate to severe pain) Qty: 18 0RF aspirin 81 mg tablet,delayed release (DR/EC) 81 mg PO DAILY 14 Days Qty: 14 0RF Continued hydroxyzine HCl 25 mg tablet 25 mg PO QID PRN0RF magnesium oxide 500 mg tablet 500 mg PO DAILY 0RF lorazepam 0.5 mg tablet 0.5 mg PO DAILY PRN0RF Label Comments: TAKE 1 TABLET BY MOUTH EVERY 12 HOURS NEEDED FOR SEVERE ANXIETY naratriptan 2.5 mg tablet 2.5 mg PO DAILY PRN0RF Label Comments: TAKE 1 TABLET BY MOUTH AT THE ONSET OF HEADACHE MAY REPEAT DOSE AGAIN IN 2 HOURS. MAXIMUM OF 2 TABLETS PER 24 HOURS. eletriptan 20 mg tablet 20 mg PO DAILY PRN0RF Label Comments: TAKE ONE TABLET BY MOUTH AT ONSET OF MIGRAINE MAY REPEAT ONCE IN TWO HOURS. MAXIMUM OF 2 TABLETS PER 24 HOURS. Plexus Probio-5 tablet 4 tab PO DAILY 0RF diphenhydramine-acetaminophen [Tylenol PM Extra Strength] 25-500 mg Tablet 1 tab PO PRN PRN0RF Discontinued celecoxib 200 mg capsule 200 mg PO DAILY PRN (Reason: pain) Qty: 90 0RF ibuprofen 200 mg capsule 200 mg PO TID PRN0RF Discharge Instructions Additional Instructions: Surgery: Left hip arthroscopy with labral repair, femoroplasty, and endoscopic iliotibial band release with trochanteric bursectomy Activity: Protected weight bearing (less than 50%) with crutches for 4 weeks. Avoid deep hip flexion or hip extension for 6 weeks. No cutting, pivoting, or sports for 3-4 months. A physical therapy prescription will be sent electronically to start in about 3 weeks. Prescriptions: Aspirin 81 mg take 1 daily to prevent a blood clot for 14 days Naproxen 250 mg take 1-2 every 12 hours with a meal as needed for moderate pain Oxycodone 5 mg take 1-2 every 4-6 hours as needed for severe pain You may use [id number] Tylenol (acetaminophen) as needed for mild pain. These pain medications may be taken all at once or in different combinations as needed. Also, recommend Colace (docusate) as a stool softener as surgery and pain medicine cause constipation. Dressings: Leave dressing in place for 3 days. May then remove and leave open to air or cover incisions with Band-Aids. May shower after 5 days. Follow-up: 10-[address] Jay Let us know right away if you develop any redness, drainage, fevers, chest pain, or trouble breathing. Do not drink alcohol or drive for at least 24 hours after anesthesia. Please call the office during business hours with any questions or concerns. Stand Alone Forms: Anesthesia Discharge Inst., [place].Nerve Block Instructions, [place] ([facility]) Referrals: Yoel Jay MD [ [facility] STAFF PHYSICIAN] - Discharge Orders Discharge Orders: Discharge Order (Routine); Ordered 10/04/21 Ordered By: Yoel Jay DS: Diagnosis Discharge Diagnosis (1) Tear of left acetabular labrum: Status: Acute (2) Trochanteric bursitis, left hip: Status: Acute
[2021-10-04] MEDS: fentaNYL 100 MCG/2 ML VIAL IVP ×2 (10:47→10:56)
[2021-10-04] MEDS: Normal Saline 10 ML VIAL IJ (11:06)
[2021-10-04] MEDS: HYDROmorphone 2 MG/ML VIAL IVP (11:07)
[2021-10-04] MEDS: oxyCODONE 5 MG TAB PO (11:20)
[2021-10-04] MEDS: Naproxen 500 MG TAB PO (12:19)
--- NOTE | 2021-10-04 12:42 | W.ANESPOSTOP ---
Postoperative Evaluation Date, Time and Location Date Performed: 10/04/21 Time Performed: 12:42 Patient Location: Day Surgery Unit Vital Signs Most Recent Imported Vital Signs: Most Recent Vital Signs Temp Pulse Resp BP Pulse Ox 36.3 C L 70 18 93/66 L 99 10/04/21 12:16 10/04/21 12:16 10/04/21 12:16 10/04/21 12:16 10/04/21 12:16 Pain Score Most Recent Pain Score: Most Recent Pain Score Pain Level 6 10/04/21 12:16 Assessment Mental Status: Awake (Alert & Oriented to Patient Baseline) Airway and Respiratory Function: Patent airway with normal (patient baseline) respiratory exam Cardiovascular Function: Hemodynamically Stable Hydration Status: Adequately Hydrated Nausea & Vomiting: No Nausea or Vomiting Pain: Pain is tolerable per patient Peripheral Nerve Block: Regional nerve block not resolved at time of post operative discharge
== END 2021-10-04 13:33 | disposition home or self-care (01) ==
PROVIDERS: PCP Family Medicine; Visit Provider Student in an Organized Health Care Education/Training Program
PROC: (CPT 29860; principal; 2021-10-04 07:30)
DX: S73.192A Other sprain of left hip, initial encounter (principal); M70.62 Trochanteric bursitis, left hip; M67.952 Unspecified disorder of synovium and tendon, left thigh; X58.XXXA Exposure to other specified factors, initial encounter; N39.46 Mixed incontinence
CPT/HCPCS: 29916; 29914; 27062; 27305; 76942; 73501; J0690; J1100; J2250; J2405; J3010

== ENCOUNTER 2021-11-27 01:27 | Outpatient (CLI) | payer OTHER, SELFPAY ==
--- NOTE | 2021-11-27 07:27 | DI.MRI_ITS ---
Exam(s) MR BRAIN ORBIT FACE NECK WO/W EXAM: MR BRAIN ORBIT FACE NECK WO/W CLINICAL HISTORY: right neck pain,NEG BA SWAL,M54.2. TECHNIQUE: Multiplanar multisequence MRI was performed. COMPARISON: No exams were available for comparison FINDINGS: MR examination of the cervical region was performed utilizing multi planar T1 and T2 fat sat imaging as well as pre and post contrast T1 fat sat imaging. No cervical mass or adenopathy identified. Tracheolaryngeal structures appear intact. No muscular a bnormality seen. No bony signal abnormality identified. Visualized brain and spinal cord appear int act. Visualized paranasal sinuses appear clear. IMPRESSION: Negative cervical MRI. DATA REPOSITORY:
[2021-11-27] MEDS: Normal Saline Flush 10 ML SYR IVP (13:27)
== END 2021-11-27 01:47 ==
PROVIDERS: PCP Family Medicine; Visit Provider Otolaryngology
DX: M54.2 Cervicalgia (principal)
CPT/HCPCS: 70553; 70543

== ENCOUNTER 2022-01-01 14:38 | Outpatient (CLI) | payer OTHER, SELFPAY ==
--- NOTE | 2022-01-01 14:30 | DI.RAD_ITS ---
Exam(s) XR LUMBAR SPINE AP, LAT EXAM: XR LUMBAR SPINE AP, LAT CLINICAL HISTORY: SPINE PAIN. TECHNIQUE: 2D digital imaging was performed. Two views. COMPARISON: No exams were available for comparison FINDINGS: BONES: No fracture or destructive lesion. Vertebral bodies are unremarkable. No facet hypertrophy tammy ntified. No spondylolysis. DISKS: Intervertebral disc spaces are maintained. ALIGNMENT: Lumbar spinal alignment is within normal limits. SOFT TISSUE: Right upper quadrant surgical clips. IMPRESSION: Unremarkable radiographs of the lumbar spine. DATA REPOSITORY: RADIATION DOSE DELIVERED:
--- NOTE | 2022-01-01 14:30 | DI.RAD_ITS ---
Exam(s) XR HIP LT COMPLETE AP PELVIS EXAM: XR HIP LT COMPLETE AP PELVIS INDICATION: HIP PAIN. COMPARISON: CR XR HIP LT COMPLETE AP PELVIS from 06/25/2021 MR PELVIS ADULT from 08/29/2021 TECHNIQUE: 2D digital imaging was performed. Three views. FINDINGS: The hip joint spaces are well maintained. There is mild bilateral spurring at the superior acetabula , left slightly greater than right. Minimal AC joint spurring is present. IMPRESSION: Mild degenerative changes. DATA REPOSITORY: RADIATION DOSE DELIVERED:
== END 2022-01-01 14:39 | disposition home or self-care (01) ==
LOC: DIORS 14:38
PROVIDERS: PCP Family Medicine; Referring Provider Family Medicine; Visit Provider Student in an Organized Health Care Education/Training Program
DX: M54.50 Low back pain, unspecified (principal); M16.12 Unilateral primary osteoarthritis, left hip
CPT/HCPCS: 72100; 73502

== ENCOUNTER 2022-01-31 18:35 | Outpatient (REF) | payer OTHER, SELFPAY ==
[2022-01-31 17:41] LABS: Hemoglobin A1C 5.7 % (<5.7)
[2022-01-31 17:53] LABS: Calculated LDL 148 mg/dL (<100); Cholesterol 227 mg/dL (<200); HDL Cholesterol 66 mg/dL (40-60); Triglyceride 65 mg/dL (<150)
== END 2022-01-31 18:36 | disposition home or self-care (01) ==
LOC: NCHCN 18:35
PROVIDERS: Visit Provider Family Medicine
DX: Z00.00 Encounter for general adult medical examination without abnormal findings (principal); Z13.220 Encounter for screening for lipoid disorders; Z13.1 Encounter for screening for diabetes mellitus
CPT/HCPCS: 80061; 83036

== ENCOUNTER 2022-05-14 16:54 | Outpatient (CLI) | payer OTHER, SELFPAY ==
[2022-05-14 17:04] VITALS: BP 116/82; PULSE 66; RESP 20; TEMP 36.6; O2SAT 98
--- NOTE | 2022-05-14 17:40 | PDOC.PAIN ---
Date of service: 05/14/22 Time of Service: 17:45 Pain Clinic Procedure Note Procedure Note Procedure Note: ULTRASOUND GUIDED LEFT Gluteus medius tendon needling INJECTIONS Pre-Procedural Evaluation: Mikki Aiken has been referred to the [facility] for an Ultrasound Guided left gluteus medius tendon needling injection for a chief complaint of left lateral hip area pain. Pre-procedure Pain Score: 7/10 Dx: Left Gluteus Medius tendinopathy Patient was interviewed and the medical record reviewed. There were no medical, pharmacologic, radiographic, or other structural contraindications to preforming an ultrasound guided injection. Risks and expected side effects as well as potential benefits of the procedure were reviewed. The patient consent form was signed and witnessed. Standard time-out procedure was performed. The use of direct ultrasound visualization of the needle (rather than a non-guided injection) was required to increase patient safety by excluding inadvertent intramuscular, intratendinous, or intraneural needle placement and minimizing bleeding by avoiding osteochondral or vascular injury from the needle. Additionally, the increased accuracy of placement may increase clinical effectiveness and will allow higher diagnostic specificity when evaluating effectiveness of this injection. Procedure Description: The patient was placed in the right lateral recumbent position and automated blood pressure cuff and pulse oximeter applied for monitoring during the procedure and recorded in the medical record. Pre-injection ultrasound scanning of the area of interest was performed using a linear transducer, identifying relevant anatomy, landmarks, and neurovascular structures allowing for optimal needle path. The site was then prepared in the usual sterile fashion, using thorough Chlorhexadine preparation of the skin and sterile draping. The same ultrasound transducer was then passed into the sterile field using sterile probe cover and sterile ultrasound gel. The injection target was again visualized. Skin and subcutaneous tissues were anesthetized with 2 mL of 1% Lidocaine. A 22G Pajunk 3.5 Ultrasound needle was placed under live ultrasound guidance, using an in-plane approach, to the target area. After visualization of the needle tip at the target area, 5 cc of 2% Lidocaine was delivered after negative aspiration for blood. Ultrasound images were captured and stored for documentation purposes. I made 20 passes through the left Gluteus Medius tendon. Post-procedure Pain Score:3/10 Vital signs were stable throughout the procedure and were as recorded in the docflowsheet by the nursing staff. Follow up plans and appointments were discussed with the patient.Post procedure instruction was given as documented in nursing documentation and having met discharge criteria, they were discharged from the [facility]. COMMENTS: She was given the strict post-tendon needling instructions. No extra weight-bearing activities and avoid NSAIDs x 1 week Nikolas Urena DO, MPH [facility]
[2022-05-14 17:53] VITALS: PULSE 79; O2SAT 99
[2022-05-14] MEDS: Lidocaine 2% Pres-Free 5 ML VIAL IJ (18:06)
== END 2022-05-14 16:55 | disposition home or self-care (01) ==
LOC: PC 16:54
PROVIDERS: PCP Family Medicine; Visit Provider Preventive Medicine Occupational Medicine
DX: M67.854 Other specified disorders of tendon, left hip (principal)
CPT/HCPCS: 20611

== ENCOUNTER 2022-05-20 15:08 | Outpatient (CLI) | payer OTHER, SELFPAY ==
--- NOTE | 2022-05-20 06:00 | DI.RAD_ITS ---
Exam(s) XR PAIN CLINIC SACRIOILIAC 2V EXAM: XR PAIN CLINIC SACRIOILIAC 2V CLINICAL HISTORY: Dx: Sacroiliac Joint Dysfunction TECHNIQUE: 2D and realtime digital imaging was performed. Radiologist not present. CONTRAST MATERIAL: None. COMPARISON: No exams were available for comparison FINDINGS: Fluoroscopy was provided for pain management therapy. Please refer to procedure report or details. SI joint injection. T Cumulative dose: Ka,r=2.24 mGy IMPRESSION: RADIATION DOSE DELIVERED:
[2022-05-20 15:14] VITALS: BP 119/82; PULSE 85; RESP 20; TEMP 36.8; O2SAT 99
[2022-05-20] MEDS: methylPREDNISolone ACETATE 80 MG/ML VIAL IJ (15:43)
[2022-05-20 15:44] VITALS: BP 114/81; PULSE 86; RESP 18; O2SAT 99
[2022-05-20] MEDS: Omnipaque 240 MG/ML 50 ML BTL IJ (15:44)
--- NOTE | 2022-07-07 10:33 | PDOC.PAIN_ITS ---
Date of service: 05/20/22 Time of Service: 15:30 Pain Clinic Procedure Note Procedure Note Procedure Note: INTRA-ARTICULAR SI JOINT INJECTION Mikki Aiken has been referred to the [facility] for intra- articular SI joint injection. Pre-operative diagnosis: sacroilitis Post-operative diagnosis: same as above Patient was interviewed and the medical record reviewed. There were no medical, pharmacologic, radiographic or other structural contraindications to attempting fluoroscopically guided intra-articular SI joint injection. Risks and expected side effects as well as potential benefit of the procedure were reviewed and voiced concerns addressed. The printed consent form was signed and witnessed. Standard time-out procedure was performed. Patient was placed in the prone position on the fluoroscopy table and automated blood pressure cuff and pulse oximeter applied. The skin entry point for approaching left SI joints was identified under the most advantageous fluoroscopic view and marked. Following thorough Chlorhexadine preparation of the skin and draping and 1% lidocaine infiltration of the skin entry point and subcutaneous tissues, a 22 gauge spinal needle was placed under fluoroscopic guidance into left SI joints was identified under the most advantageous fluoroscopic view and marked. Following thorough Chlorhexadine preparation of the skin and draping and 1% lidocaine infiltration of the skin entry point and subcutaneous tissues, a 22 gauge spinal needle was placed under fluoroscopic guidance into LEFT SI joint. Intra-articular placement was confirmed by a clear arthrogram resulting from the injection of 0.25ml Omnipaque 240, 1ml 1% lidocaine, and 40mg Depomedrol were injected intra-articularily with an initial reproduction of a significant component of the usual pain. Vital signs were stable throughout the procedure and were as recorded in the docflowsheet by the nursing staff. Follow up plans and appointments were discussed with the patient. Post procedure instruction was given as documented in nursing documentation and having met discharge criteria, and was discharged from the [facility] Management Center. COMMENTS: patient tolerated procedure well. Pre-procedure pain level 6/10, post procedure pain level 2/10. Arnold Maza MD Pain Management CC: Pati Gaona
== END 2022-05-20 15:09 | disposition home or self-care (01) ==
LOC: PC 15:08
PROVIDERS: PCP Family Medicine; Visit Provider Internal Medicine
DX: M53.3 Sacrococcygeal disorders, not elsewhere classified (principal)
CPT/HCPCS: 27096; 72200; J1040; Q9967

== ENCOUNTER 2022-07-02 13:57 | Outpatient (CLI) | payer OTHER, SELFPAY ==
--- NOTE | 2022-07-02 13:45 | RT.EKG_ITS ---
APPROVED REPORT Exam: Resting ECG Reason for Exam: chest discomfort Patient Location: O HR:77 bpm ECG Measurements Heart Rate 77 AXIS WV 168 P 25 QRSd 82 QRS 37 QT 375 T 40 QTc 425 Conclusion Sinus rhythm...normal P axis, V-rate 50- 99 Normal Electrocardiogram
== END 2022-07-02 13:58 | disposition home or self-care (01) ==
LOC: DI.CM 13:57
PROVIDERS: PCP Family Medicine; Visit Provider Physician Assistant
DX: R07.89 Other chest pain (principal)
CPT/HCPCS: 93010

== ENCOUNTER 2022-07-02 14:49 | Emergency (ER) | payer OTHER, SELFPAY ==
[2022-07-02] VITALS (55 sets, daily range): BP systolic 78–152; BP diastolic 65–132; PULSE 70–94; RESP 9–22; TEMP 36.8–36.9; O2SAT 95–100
--- NOTE | 2022-07-02 14:45 | RT.EKG_ITS ---
APPROVED REPORT Exam: Resting ECG Reason for Exam: chest pain Patient Location: E HR:84 bpm ECG Measurements Heart Rate 84 AXIS GA 174 P 28 QRSd 74 QRS 27 QT 351 T 33 QTc 416 Conclusion Sinus rhythm...normal P axis, V-rate 60- 99
[2022-07-02] MEDS: Ketorolac 15 MG/ML VIAL IVP (15:21)
--- NOTE | 2022-07-02 15:23 | ED.GENADUL_ITS ---
Discharge Plan Disposition Patient Disposition: Home Condition: Stable Discharge Details Clinical Impression: Left-sided chest wall pain Primary Care Provider: Pati Gaona ED Provider: Iris Calles Home Meds and New Rx's Prescriptions: Continued tramadol 50 mg tablet 50 mg PO Q8H PRN (Reason: pain) Qty: 9 0RF ibuprofen 200 mg capsule 200 mg PO TID PRN hydroxyzine HCl 25 mg tablet 25 mg PO QID PRN magnesium oxide 500 mg tablet 500 mg PO DAILY lorazepam 0.5 mg tablet 0.5 mg PO DAILY PRN Label Comments: TAKE 1 TABLET BY MOUTH EVERY 12 HOURS NEEDED FOR SEVERE ANXIETY naratriptan 2.5 mg tablet 2.5 mg PO DAILY PRN Label Comments: TAKE 1 TABLET BY MOUTH AT THE ONSET OF HEADACHE MAY REPEAT DOSE AGAIN IN 2 HOURS. MAXIMUM OF 2 TABLETS PER 24 HOURS. eletriptan 20 mg tablet 20 mg PO DAILY PRN Label Comments: TAKE ONE TABLET BY MOUTH AT ONSET OF MIGRAINE MAY REPEAT ONCE IN TWO HOURS. MAXIMUM OF 2 TABLETS PER 24 HOURS. Plexus Probio-5 tablet 4 tab PO DAILY Discharge Instructions Instructions: Chest Wall Pain (ED) Additional Instructions: At this time the cardiac work-up is within normal limits. There is no evidence of acute heart attack or pneumonia. However if you continue to experience chest pain you may need to follow-up with your primary care provider to discuss scheduling an outpatient echocardiogram and stress test. CT is negative for PE, pneumonia, or collapsed lung. Please take Tylenol or Ibuprofen with food every 4-6 hours as needed for pain and swelling. Alternate ice and heat. Follow up with primary care provider in 3-5 days. Return to ED sooner if any worsening chest pain, dizziness lightheadedness, sweatiness, nausea or concerns. Increase oral fluids. Referrals: Pati Gaona MD [Primary Care Provider] - 5 days Discharge Data Discharge Date/Time-TO BE ENTERED AT DEPARTURE: 07/02/22 20:24 Medical Decision Making <RITIKA Rojas - Last Filed: 07/03/22 11:09> This 52-year-old female presents with chest pain which is largely pleuritic with constant sharp pain that started approximately 3 days ago but constant in the past 24 hours. Constant when she woke this morning. Heart score of 1. I have low suspicion that patient's pain is cardiac in nature, I will order D- dimer, fluid, pending chest imaging dependent on dimer return If dimer positive, CTA, if dimer negative, chest x-ray Given a shot of Toradol for improvement in symptoms, pain on chest is largely reproducible in nature If 2 negative troponins and dimer in addition to chest imaging is negative I think patient is stable for discharge home at the discretion of the oncoming provider, will transition care to [facility] pending diagnostic blood work, troponins, and chest imaging Medical Records Medical records reviewed: Yes I reviewed the patient's medical records. <Iris Calles NP - Last Filed: 07/02/22 20:14> This 52-year-old female presents with chest pain which is largely pleuritic with constant sharp pain that started approximately 3 days ago but constant in the past 24 hours. Constant when she woke this morning. Heart score of 1. I have low suspicion that patient's pain is cardiac in nature, I will order D- dimer, fluid, pending chest imaging dependent on dimer return If dimer positive, CTA, if dimer negative, chest x-ray Given a shot of Toradol for improvement in symptoms, pain on chest is largely reproducible in nature If 2 negative troponins and dimer in addition to chest imaging is negative I think patient is stable for discharge home at the discretion of the oncoming provider, will transition care to [facility] pending diagnostic blood work, troponins, and chest imaging 1600: SJ: Care assumed from provider (RITIKA Rojas) Please see their initial HPI, PE, and documentation. Discussed patient details and case and pending workup and disposition. Patient is hemodynamically stable, and alert and oriented. At the time of signout awaiting lab results, D-dimer to determine imaging and reevaluation after Toradol. CBC is within normal limits shows no leukocytosis, D-dimer within normal limits 167, CMP also within normal limits, initial troponin less than 50. COVID flu and RSV is pending at this time. PE ruled out with normal D-dimer. Chest x-ray ordered. Chest x-ray within normal limits. See report below. Patient reevaluation she has received the Toradol which she reports has not improved her pain. She reports that lying down pain is worse. She does have pinpoint posterior left shoulder pain and anterior left sided chest pain. Worse with palpation and movement. Blood pressure dipped into the 98 systolic. Rechecked now it is 133 systolic. Pulses are equal bilaterally. No abdominal pain with palpation. I did offer lidocaine patch or something stronger for pain which patient declined at this time. At this time we are awaiting second troponin chest x-ray. COVID flu and RSV is negative. Repeat troponin within normal limits. Lidocaine patch ordered and GI cocktail. Will instruct patient on strict return instructions, alternating ice and heat and taking Tylenol or ibuprofen as needed. Plan to be discharged. 1913: Patient is still complaining of chest pain and feels as if it is squeezing, will order nitro sublingual and chest CT. CT chest result noted below no PE no pleural effusion no pneumothorax no aortic aneurysm. Patient received 1 sublingual nitro 0.4 sublingual which did little to nothing to relieve her pain. Will patient will be discharged with follow-up with PCP. This text was generated using [employer] dictation system, please disregard any oddities of phrase or misspellings. Imaging Data Radiologic Study: Imaging: X-Ray Radiologist's impression: EXAM: XR CHEST 2V PA LATERAL CLINICAL HISTORY: Chest Pain TECHNIQUE: 2D digital imaging was performed. COMPARISON: CR,RF RF BARIUM SWALLOW from 07/17/2021 FINDINGS: HEART: Normal size. Aorta: Not dilated. PULMONARY VASCULATURE: Normal. LUNGS: Clear. PLEURAL SPACE: No pleural effusion or pneumothorax. BONE:Unremarkable for age. IMPRESSION: No acute abnormality. Radiologic Study #2: Imaging: CT Scan Radiologist's impression: CT Chest PE: FINDINGS: Pulmonary arteries: No pulmonary emboli. Aorta: No aortic aneurysm. No aortic dissection. Lungs: No consolidation. No masses. Minimal subsegmental atelectasis Pleural spaces: Unremarkable. No pneumothorax. No pleural effusion. Heart: Unremarkable. No cardiomegaly. No pericardial effusion. Lymph nodes: Unremarkable. No enlarged lymph nodes. Bones/joints: Unremarkable. No acute fracture. Soft tissues: Unremarkable. Fluid/liquid stool in the visualized transverse colon Prior cholecystectomy IMPRESSION: No pulmonary emboli observed Question mild diarrheal disease Lab Data Lab results reviewed: Yes I reviewed the patient's lab results. Labs: Laboratory Tests Range/Units 07/02/22 07/02/22 07/02/22 15:08 15:08 15:08 WBC (4.4-10.8) 10^3/uL 8.73 RBC (3.93-5.22) 10^6/uL 4.39 Hgb (11.2-15.7) g/dL 13.2 Hct (36.0-46.0) % 39.6 MCV (80-95) fL 90 MCH (27.0-33.0) pg 30.1 MCHC (32.0-36.0) % 33.3 RDW (11.7-14.6) % 12.6 Plt Count (130-400) 10^3/uL 250 MPV (8.0-11.0) fL 8.9 Immature Gran % 0.2 Neutrophils % 57.3 Lymphocytes % 34.2 Monocytes % 6.3 Eosinophils % 1.4 Basophils % 0.6 Nucleated RBC % (0.0-0.3) % 0.0 Absolute Neutrophils (1.2-6.7) 10^3/uL 5.00 Absolute Lymphocytes (1.2-3.4) 10^3/uL 2.99 Absolute Monocytes (0.1-0.8) 10^3/uL 0.55 Absolute Eosinophils (0.0-0.7) 10^3/uL 0.12 Absolute Basophils (0.0-0.2) 10^3/uL 0.05 D-Dimer (<500) ng/mlFEU 167 Sodium (136-145) mmol/L 142 Potassium (3.5-5.1) mmol/L 3.5 Chloride (98-107) mmol/L 105 Carbon Dioxide (21.0-32.0) mmol/L 30.4 Anion Gap (3-11) mmol/L 6.6 BUN (7-18) mg/dL 13 Creatinine (0.55-1.02) mg/dL 0.9 Est GFR (CKD-EPI 2020) (mL/min/1.73m2) 77.88 Glucose (74-106) mg/dL 95 Calcium (8.5-10.1) mg/dL 9.2 Total Bilirubin (0.2-1.0) mg/dL 0.5 AST (15-37) U/L 18 ALT (14-59) U/L 20 Alkaline Phosphatase (46-116) U/L 69 Troponin I (<or=60) ng/L < 50 Total Protein (6.4-8.2) g/dL 7.4 Albumin (3.4-5.0) g/dL 4.0 Lipase (16-77) U/L 47 HPI <RITIKA Rojas - Last Filed: 07/03/22 11:09> General Date/Time Provider Initiated Documentation: 07/02/22 15:07 . HPI Narrative: This 52-year-old female presents with report of chest pain which consists of sharp stabbing constant pain today with some intermittent pleuritic change pain with deep breaths. She states that she was sick with upper respiratory symptoms and flulike symptoms approximately 3 weeks ago which resolved. She states she felt well until 3 days ago when she started having some intermittent chest pain, nonexertional. Denies any history of Or denies any nausea or vomiting. Denies any diaphoresis. Denies any fever or chills. Denies calf pain or swelling. Denies any history of coagulopathy, recent flights, surgeries, long drives. Denies any calf pain or swelling. Denies positional worsening of pain. Father with anginal symptoms less than age 60 for patient. Related Data Home Medications Medication Instructions Recorded Confirmed Plexus Probio-5 4 tab PO DAILY 07/03/20 07/02/22 eletriptan 20 mg tablet 20 mg PO DAILY PRN 07/03/20 07/02/22 lorazepam 0.5 mg tablet 0.5 mg PO DAILY PRN 07/03/20 07/02/22 naratriptan 2.5 mg tablet 2.5 mg PO DAILY PRN 07/03/20 07/02/22 hydroxyzine HCl 25 mg tablet 25 mg PO QID PRN 06/10/21 07/02/22 magnesium oxide 500 mg tablet 500 mg PO DAILY 06/10/21 07/02/22 tramadol 50 mg tablet 50 mg PO Q8H PRN pain #9 tabs 01/01/22 07/02/22 ibuprofen 200 mg capsule 200 mg PO TID PRN 01/22/22 07/02/22 Previous Rx's Medication Instructions Recorded tramadol 50 mg tablet 50 mg PO Q8H PRN pain #9 tabs 01/01/22 Allergies Allergy/AdvReac Type Severity Reaction Status Date / Time sumatriptan succinate Allergy Intermediate head Unverified 07/02/22 14:56 [From Imitrex] numbness sumatriptan [From Imitrex] AdvReac Intermediate head Verified 07/02/22 14:56 numbness tramadol AdvReac Nausea Verified 07/02/22 13:54 General Stated Complaint: Chest Pain MELISSA: 3 Review of Systems <RITIKA Rojas - Last Filed: 07/03/22 11:09> All systems reviewed & are unremarkable except as noted in HPI and below PFSH <RITIKA Rojas - Last Filed: 07/03/22 11:09> All Active Problems (Updated 07/02/22 @ 18:52 by Iris Calles NP) Left-sided chest wall pain (Acute) Sacroiliac joint dysfunction of left side (Acute) Sacroiliac joint dysfunction of left side (Acute) Hamstring tendonitis of left thigh (Acute) Mixed stress and urge urinary incontinence (Acute) Vaginal atrophy (Acute) Trochanteric bursitis, left hip (Acute) Pain in pelvis (Acute) COVID-19 (Acute) COVID-19 (Acute) Cervicalgia (Acute) Dysphagia, oropharyngeal (Acute) Left groin pain (Acute) DDX: Labral tear vs. psoas tendinitis Tear of left acetabular labrum (Acute) Iliotibial band syndrome of left side (Acute) Tendinopathy of left gluteus medius (Acute) Left-sided ischial pain (Acute) Chronic left sacroiliac pain (Acute) Medical History Anxiety and depression Buttock pain Carpal tunnel syndrome on both sides Chronic constipation Dysphagia History of nephrolithiasis Leg edema, right Migraine headache Neck pain on right side Nephrolithiasis Pain, joint, hip Right calf pain Sore throat Spondylosis, cervical Urinary incontinence Surgical History H/O: hysterectomy 07/2009 History of bladder surgery sling surgery History of prior ablation treatment CERVICAL 07/2020 Hx of cholecystectomy 2003 S/P hip arthroscopy (10/04/21) Family History Father Heart disease Glaucoma Mother Lung cancer Other Colon cancer Social History Smoking/Tobacco Use Status: Former Tobacco Use tobacco type: cigarettes and e- cigarettes Quit Date: 09/30/19 Pack-years: 10 Smoking risk assessment performed?: Yes Alcohol Intake: current Alcohol Intake frequency: holidays/special occasions only Drug use: Never Substance use type: does not use Household members: children Housing: house Number of Children: 1 current occupation: [employer] Pets and animals: Yes Pets and animals: dog(s) Current gender identity: female What type of physical activity do you participate in: walking Duration: 60-90 minutes/day Frequency: daily Do you feel safe at home: Yes Do you feel safe in your relationship?: Yes Exam <RITIKA Rojas - Last Filed: 07/03/22 11:09> Const General: cooperative and comfortable Chest Chest: normal inspection of the chest Resp Effort & Inspection: normal respiratory effort Auscultation: clear to auscultation bilaterally Cardio Rate: regular rate Rhythm: regular rhythm GI Inspection: normal to inspection Other: non-tender abdominal exam Skin General skin exam: no rashes or lesions noted Neuro General: patient alert and patient oriented x3 Extrem General: normal to inspection Other: no calf pain or swelling noted, distal pulses intact Course <RITIKA Rojas - Last Filed: 07/03/22 11:09> Vital Signs Vital signs: Vital Signs Temperature 36.9 C 07/02/22 14:57 Pulse 94 H 07/02/22 14:57 Respiratory Rate 18 07/02/22 14:57 Blood Pressure 126/85 07/02/22 14:57 Pulse Oximetry 99 07/02/22 14:57 Temperature 36.9 C 07/02/22 14:57 Temperature Source Oral 07/02/22 14:57 Pulse 94 H 07/02/22 14:57 Respiratory Rate 18 07/02/22 14:58 Respiratory Effort Non-Labored 07/02/22 14:58 Respiratory Depth Normal 07/02/22 14:58 Respiratory Pattern Normal 07/02/22 14:58 Blood Pressure 126/85 07/02/22 14:57 Pulse Oximetry 99 07/02/22 14:57 Oxygen Delivery Method Room Air 07/02/22 14:57 Oxygen Flow Rate 0 07/02/22 14:57 Pain Level 4 07/02/22 15:21 Sign Out <RITIKA Rojas - Last Filed: 07/03/22 11:09> Sign Out Data: Sign Out Comment: pending troponin, ddimer, labs, and chest imaging Last updated by Blanca Castro PA at 07/02/22 15:37
[2022-07-02 15:27] LABS: Abs Immature Grans 0.02 10^3/uL (0.0-0.06); Absolute Basophil Count 0.05 10^3/uL (0.0-0.2); Absolute Eosinophil Count 0.12 10^3/uL (0.0-0.7); Absolute Lymphocyte Count 2.99 10^3/uL (1.2-3.4); Absolute Monocyte Count 0.55 10^3/uL (0.1-0.8); Basophils % 0.6; Eosinophils % 1.4; HCT 39.6 % (36.0-46.0); HGB 13.2 g/dL (11.2-15.7); Immature Grans % 0.2; Lymphocytes % 34.2; MCH 30.1 pg (27.0-33.0); MCHC 33.3 % (32.0-36.0); MCV 90 fL (80-95); MPV 8.9 fL (8.0-11.0); Monocytes % 6.3; Neutrophils % 57.3; Platelet Count 250 10^3/uL (130-400); RBC 4.39 10^6/uL (3.93-5.22); RDW 12.6 % (11.7-14.6); RDW-SD 41.8 fL; WBC 8.73 10^3/uL (4.4-10.8)
[2022-07-02 15:43] LABS: ALT 20 U/L (14-59); AST 18 U/L (15-37); Alkaline Phosphatase 69 U/L (46-116); Anion Gap 6.6 mmol/L (3-11); BUN 13 mg/dL (7-18); Bilirubin, Total 0.5 mg/dL (0.2-1.0); CO2 30.4 mmol/L (21.0-32.0); CREATININE 0.9 mg/dL (0.55-1.02); Calcium 9.2 mg/dL (8.5-10.1); Chloride 105 mmol/L (98-107); Estimated GFR 77.88 (mL/min/1.73m2); Glucose 95 mg/dL (74-106); Lipase 47 U/L (16-77); Potassium 3.5 mmol/L (3.5-5.1); Sodium 142 mmol/L (136-145); Total Protein 7.4 g/dL (6.4-8.2); Troponin I < 50 ng/L (<or=60)
[2022-07-02 15:58] LABS: D-Dimer 167 ng/mlFEU (<500)
--- NOTE | 2022-07-02 16:00 | DI.RAD_ITS ---
Exam(s) XR CHEST 2V PA LATERAL EXAM: XR CHEST 2V PA LATERAL CLINICAL HISTORY: Chest Pain TECHNIQUE: 2D digital imaging was performed. COMPARISON: CR,RF RF BARIUM SWALLOW from 07/17/2021 FINDINGS: HEART: Normal size. Aorta: Not dilated. PULMONARY VASCULATURE: Normal. LUNGS: Clear. PLEURAL SPACE: No pleural effusion or pneumothorax. BONE:Unremarkable for age. IMPRESSION: No acute abnormality. DATA REPOSITORY: RADIATION DOSE DELIVERED:
[2022-07-02 16:10] LABS: COVID-19 PCR Negative (Negative); Influenza A PCR Negative (Negative); Influenza B PCR Negative (Negative); RSV PCR Negative (Negative)
[2022-07-02 16:15] LABS: Source Nasopharynx
[2022-07-02 18:29] LABS: Troponin I < 50 ng/L (<or=60)
[2022-07-02] MEDS: Lidocaine 5% Patch 1 PATCH TP (18:29)
--- NOTE | 2022-07-02 19:00 | DI.CT_ITS ---
Exam(s) CT CHEST PE CTA EXAM: CT CHEST PE CTA CLINICAL HISTORY: Left sided chest pain. TECHNIQUE: Imaging Protocol: Axial CT angiography was performed with multi-slice acquisition and mu lti-planar reconstructions as well as axial, coronal and sagittal MIP reconstructions. CONTRAST MATERIAL: Intravenous: Omnipaque 350 Contrast volume:65 mL COMPARISON: CT CT CHEST PE CTA from 06/13/2021 FINDINGS: Pulmonary Arteries: No evidence of filling defect to suggest pulmonary emboli. Tracheobronchial tree: Patent where visualized. Mediastinum and Sammi: No dominant adenopathy or fluid collection. Pulmonary parenchyma: Dependent changes. No consolidation or dominant measurable mass. Pleura: No effusion or pneumothorax. Heart: The heart is not dilated. No coronary artery calcifications are seen. Aorta: Thoracic aorta non-dilated. No aneurysm. No dissection. Upper abdomen: Unremarkable. Status post cholecystectomy. Bones: Unremarkable for age. Tubes, Catheters, and Lines: None IMPRESSION: No evidence of pulmonary embolism or other acute abnormality.. RADIATION DOSE DELIVERED: 398.95mGy.cm Total DLP DATA REPOSITORY: All CT scans at this facility are submitted to the National Radiology Data Registry (NRDR) Dose Index Registry (DIR) with the [employer] (ACR). RADIATION OPTIMIZATION: All CT scans at this facility use at least one of these dose optimization te chniques: automated exposure control; mA and/or kV adjustment per patient size (includes targeted exa ms where dose is matched to clinical indication); or iterative reconstruction.
[2022-07-02] MEDS: Omnipaque 350 MG/ML 100 ML BTL IJ (19:27)
[2022-07-02] MEDS: Normal Saline Flush 10 ML SYR IVP (19:42)
[2022-07-02] MEDS: nitroGLYcerin 0.4 MG TAB SL (20:00)
--- NOTE | 2022-07-02 20:03 | DI.VRAD_ITS ---
PROCEDURE INFORMATION: Exam: CTA Chest With Contrast Exam date and time: 07/02/2022 7:39 PM Age: 52 years old Clinical indication: Left-sided; Prior surgery; Surgery date: 6+ months; Surgery type: Cholecystectomy; Patient HX: Left sided chest pain TECHNIQUE: Imaging protocol: Computed tomographic angiography of the chest with contrast. 3D rendering (Not supervised by radiologist): MIP and/or 3D reconstructed images were created by the technologist. Radiation optimization: All CT scans at this facility use at least one of these dose optimization techniques: automated exposure control; mA and/or kV adjustment per patient size (includes targeted exams where dose is matched to clinical indication); or iterative reconstruction. Contrast material: OMNIPAQUE 350; Contrast volume: 65 ml; Contrast route: INTRAVENOUS (IV); COMPARISON: CT CHEST PE CTA 06/13/2021 1:38 PM FINDINGS: Pulmonary arteries: No pulmonary emboli. Aorta: No aortic aneurysm. No aortic dissection. Lungs: No consolidation. No masses. Minimal subsegmental atelectasis Pleural spaces: Unremarkable. No pneumothorax. No pleural effusion. Heart: Unremarkable. No cardiomegaly. No pericardial effusion. Lymph nodes: Unremarkable. No enlarged lymph nodes. Bones/joints: Unremarkable. No acute fracture. Soft tissues: Unremarkable. Fluid/liquid stool in the visualized transverse colon Prior cholecystectomy IMPRESSION: No pulmonary emboli observed Question mild diarrheal disease Dictated and Authenticated by: Jake Hdez MD. Ordering:RAMON Simmons MD
== END 2022-07-02 20:24 | disposition home or self-care (01) ==
PROVIDERS: Physician Assistant; Emergency Provider Registered Nurse Emergency; PCP Family Medicine
DX: R07.81 Pleurodynia (principal); M25.512 Pain in left shoulder; Z20.822 Contact with and (suspected) exposure to COVID-19
CPT/HCPCS: 71275; 80053; 83690; 87637; 93005; 96374; 99285; 71046; 84484; 85025; 85379; 93010; 99284; J1885; J3490

== ENCOUNTER 2022-10-16 02:13 | Outpatient (CLI) | payer OTHER, SELFPAY ==
--- NOTE | 2022-10-16 08:15 | DI.RAD_ITS ---
Exam(s) RF JOINT INJECTION FLUORO GUID EXAM: RF JOINT INJECTION FLUORO GUID CLINICAL HISTORY: L HIP PAIN,fluoro guided injection,si joint dysfunction,tear,bursitis,m25.5 TECHNIQUE: 2D and realtime digital imaging was performed. CONTRAST MATERIAL: Iodinated contrast material was used. COMPARISON: No exams were available for comparison FINDINGS: Fluoroscopy was provided for Dr. Roe Shook during the performance of a left hip injection. Ka,r=3.94 mGy IMPRESSION: RADIATION DOSE DELIVERED:
[2022-10-16] MEDS: Omnipaque 300 MG/ML 10 ML BTL IJ (15:20)
[2022-10-16] MEDS: methylPREDNISolone ACETATE 80 MG/ML VIAL IM (15:20)
[2022-10-16] MEDS: Bupivacaine 0.5% Pres-Free 10 ML VIAL 2 ML IJ (15:21)
== END 2022-10-16 02:33 ==
PROVIDERS: PCP Family Medicine; Visit Provider Student in an Organized Health Care Education/Training Program
DX: G89.29 Other chronic pain (principal); M25.552 Pain in left hip; M53.3 Sacrococcygeal disorders, not elsewhere classified; M67.952 Unspecified disorder of synovium and tendon, left thigh; M70.62 Trochanteric bursitis, left hip; M76.32 Iliotibial band syndrome, left leg; S73.192A Other sprain of left hip, initial encounter
CPT/HCPCS: 20610; 77002; J1040

== ENCOUNTER 2023-01-26 19:36 | Outpatient (REF) | payer OTHER, SELFPAY ==
[2023-01-26 19:48] LABS: HCT 40.4 % (36.0-46.0); HGB 13.4 g/dL (11.2-15.7); MCH 30.9 pg (27.0-33.0); MCHC 33.2 % (32.0-36.0); MCV 93 fL (80-95); MPV 10.3 fL (8.0-11.0); Platelet Count 300 10^3/uL (130-400); RBC 4.33 10^6/uL (3.93-5.22); RDW 13.3 % (11.7-14.6); WBC 7.56 10^3/uL (4.4-10.8)
[2023-01-26 20:11] LABS: Hemoglobin A1C 5.3 % (<5.7)
== END 2023-01-26 19:37 | disposition home or self-care (01) ==
LOC: NCHCN 19:36
PROVIDERS: PCP Family Medicine; Visit Provider Family Medicine
DX: R63.4 Abnormal weight loss (principal); R73.03 Prediabetes; R23.3 Spontaneous ecchymoses
CPT/HCPCS: 85027; 83036; 84443

== ENCOUNTER → 2023-02-12 02:00 | Outpatient (CLI) | payer OTHER, SELFPAY ==
--- NOTE | 2023-02-12 | DI.MAMMO_ITS ---
Exam(s) MAMMO SCREENING EXAM: MAMMO SCREENING CLINICAL HISTORY: SCREENING, Z12.31 TECHNIQUE: Mammograms were interpreted according to the usual protocol including computer analysis w [employer] CAD system, tomosynthesis and C-view imaging. COMPARISON: 2016 through 2020 FINDINGS: The breasts are composed of scattered fibroglandular densities, Breast Density category B. No suspicious masses or suspicious microcalcifications are seen. No skin thickening or abnormal axillary lymph nodes are seen. There has been no significant change from prior exams. IMPRESSION: BI-RADS Category 1, Negative mammogram Yearly screening mammography is recommended. Breast Density - Category B, scattered fibroglandular densities. A negative radiographic report should not delay biopsy if a dominant or clinically suspicious mass is present. Up to ten percent of cancers are not identified on mammography. A negative report may reinforce clinical impression. Adenosis and dense breasts may obscure an underlying neoplasm. False positive reports average 6 to 10%. Patient will receive a letter notifying them of these results.
== END ==
PROVIDERS: PCP Family Medicine; Visit Provider Family Medicine
DX: Z12.31 Encounter for screening mammogram for malignant neoplasm of breast (principal)
CPT/HCPCS: 77063; 77067

== ENCOUNTER 2023-02-26 07:51 | Outpatient (CLI) | payer OTHER, SELFPAY ==
[2023-02-26 08:10] VITALS: BP 118/90; PULSE 76; RESP 16; TEMP 36; O2SAT 99
[2023-02-26 08:44] VITALS: PULSE 77; O2SAT 99
--- NOTE | 2023-02-26 08:53 | PDOC.PAIN ---
Date of service: 02/26/23 Time of Service: 08:53 US Guided Injections Type of Ultrasound Guided Injection: Left Iliopsoas Bursa Injection and Left Iliopsoas Tendon Injection Pre-Procedural Evaluation Pain to the left anterior hip area - over the hip flexor- superiorly Referral Patient has been referred to the [facility] for Left Iliopsoas Bursa Injection and Left Iliopsoas Tendon Injection for a chief complaint of Left anterior hip area pain Pre-Procedural Pain Score Pre-procedural pain score: 7/10 Reason for Exam Muscle pain and left iliopsoas bursitis Patient Interview Patient was interviewed and medical record reviewed: Yes There were no contraindications to performing an US guided procedure. Risks,expected side effects, potential benefits were reviewed. The patient consent form was signed and witnessed. Standard time out procedure was performed. Patient Safety The area of injection was free of skin abnormalities Procedure Description No sedation given for procedure Patient was placed in the supine position and the following Pulse Ox applied. Pre-Procedure ultrasound scanning performed using a Linear 9 MHz probe Site Preparation Chloroprep Local Anesthesia Skin and subcutaneous tissues anesthetized with: 2 (cc) mL of Lidocaine 2%. A 21 G 3.5 Pajunk ultrasound needle was placed under live US guidance using an in-plane approach to the target area. After visualization of the needle tip at the target area Depo-Medrol 40mg per cc (40 mg) and Lidocaine 2% were used. Total of Injectate/Medication Note: 1 cc of Depomedrol (40 mg/cc) and 5 cc of 2% Lidocaine Negative aspiration for blood. [place] were removed without difficulty. Ultrasound images were captured and stored. Patient Mental Status Patient was alert and awake during procedure Vital Signs Vital signs were stable throughout the procedure and recorded by nursing. Follow Up/Discharge Follow up plans and appointments were discussed with patient. Post procedure instruction was given as documented in nursing documentation. Discharge criteria met and patient discharged from [facility]: Yes Post Procedure Pain Post Procedure Pain: 5/10 Patient tolerated procedure well Procedure Outcome: Successful Comments: More pressure in the left anterior hip area than pain Iliopsoas Tendon Injection (Left) Bursa Injection (Left iliopsoas bursa) Non US Guided Injections Procedure Description Patient was placed in the supine position Post Procedure Pain Post Procedure Pain: 5/10
[2023-02-26] MEDS: Lidocaine 2% Pres-Free 5 ML VIAL IJ (08:54)
[2023-02-26] MEDS: methylPREDNISolone ACETATE 40 MG/ML VIAL IJ (08:54)
== END 2023-02-26 07:52 | disposition home or self-care (01) ==
LOC: PC 07:52
PROVIDERS: PCP Family Medicine; Visit Provider Preventive Medicine Occupational Medicine
DX: M25.552 Pain in left hip (principal)
CPT/HCPCS: 20611; J1030

== ENCOUNTER 2023-05-06 16:35 | Outpatient (REF) | payer OTHER, SELFPAY ==
[2023-05-06 17:46] LABS: BUN 18 mg/dL (7-18); CREATININE 0.8 mg/dL (0.55-1.02); Chloride 104 mmol/L (98-107); Estimated GFR 89.15 (mL/min/1.73m2); Glucose 93 mg/dL (74-106); Magnesium 2.3 mg/dL (1.8-2.4); Potassium 4.4 mmol/L (3.5-5.1); Sodium 140 mmol/L (136-145)
== END 2023-05-06 16:36 | disposition home or self-care (01) ==
LOC: NCHCN 16:35
PROVIDERS: PCP Family Medicine; Visit Provider Family Medicine
DX: R25.2 Cramp and spasm (principal)
CPT/HCPCS: 80048; 83735

== ENCOUNTER 2023-05-18 09:08 | Day surgery (SDC) | payer OTHER, SELFPAY ==
[2023-05-18 09:20] VITALS: BP 115/83; PULSE 72; RESP 16; TEMP 36.3; O2SAT 99
--- NOTE | 2023-05-18 09:30 | COLE_ITS ---
Date of service: 05/18/23 Time of Service: 09:30 Colonoscopy Report Procedure Description: PROCEDURES PERFORMED: 1. Colonoscopy PREOPERATIVE DIAGNOSIS: Screening colonoscopy POSTOPERATIVE DIAGNOSIS: Normal colon SURGEON: Boni Kumar MD INDICATION for procedure: The patient is a 53-year-old woman without symptoms due for a screening colonoscopy. No family history of colon cancer. FINDINGS: Normal terminal ileum. No polyps. No diverticular disease. No hemorrhoid disease. No inflammation anywhere. SURVEILLANCE interval/FOLLOW-UP: 10 years Specimens: None EBL: Minimal COMPLICATIONS: None QUALITY of prep: Excellent Procedure in detail: The patient gave written consent and was in agreement with the indications, the potential risks as well as the benefits of the procedure. She was taken to the endoscopy suite and laid in the left lateral decubitus p osition. A timeout was performed and anesthesia was administered which was tolerated well. I started the procedure. Digital rectal and visual examination was performed and grossly within normal limits. A well-lubricated flexible colonoscope was then introduced and passed without any notable difficulty all the way to the cecum identified by the ileocecal valve and the appendiceal orifice. I intubated the terminal ileum briefly and it was normal. The scope was then slowly withdrawn with the above- noted findings. The patient tolerated the procedure well and was taken to the PACU in hemodyn amically stable condition.
--- NOTE | 2023-05-18 09:31 | W.PM.DSUDISC ---
Date of service: 05/18/23 Time of Service: 09:31 Discharge Plan Disposition Patient Disposition: Home Condition: Good Discharge Details Attending Provider: Hay Kumar Primary Care Provider: Pati Gaona Home Meds and New Rx's Prescriptions: No Action ibuprofen 200 mg capsule 200 mg PO TID PRN bisacodyl [Dulcolax (bisacodyl)] 5 mg tablet,delayed release (DR/EC) 5 mg PO ONCE Qty: 4 0RF Rx Instructions: Colonoscopy Bowel Prep- Per Instructions polyethylene glycol 3350 17 gram/dose powder 238 g PO ONCE Qty: 238 0RF Rx Instructions: Colonoscopy Bowel Prep- Per Instructions magnesium oxide 500 mg tablet 500 mg PO DAILY triamcinolone acetonide 0.1 % cream 1 applic topical BID estradiol 1 mg tablet 0.5 mg PO DAILY Rx Instructions: off 1 week; repeat cycle lorazepam 0.5 mg tablet 0.5 mg PO DAILY PRN Patient Comments: TAKE 1 TABLET BY MOUTH EVERY 12 HOURS NEEDED FOR SEVERE ANXIETY naratriptan 2.5 mg tablet 2.5 mg PO DAILY PRN Patient Comments: TAKE 1 TABLET BY MOUTH AT THE ONSET OF HEADACHE MAY REPEAT DOSE AGAIN IN 2 HOURS. MAXIMUM OF 2 TABLETS PER 24 HOURS. eletriptan 20 mg tablet 20 mg PO DAILY PRN Patient Comments: TAKE ONE TABLET BY MOUTH AT ONSET OF MIGRAINE MAY REPEAT ONCE IN TWO HOURS. MAXIMUM OF 2 TABLETS PER 24 HOURS. Plexus Probio-5 tablet 4 tab PO DAILY Discharge Instructions Additional Instructions: FINDINGS: Your small intestine, your colon and your rectum appear very healthy. No polyps or inflammation was seen anywhere. You should repeat another colonoscopy in 10 years. Stand Alone Forms: Colonoscopy Post Instructions Activity:: Activity as Tolerated Diet:: As Tolerated
[2023-05-18] MEDS: Lactated Ringers 1,000 ML 80 ML IV (09:44)
[2023-05-18 10:20] VITALS: BMI 22.7
--- NOTE | 2023-05-18 10:20 | W.ANESPRE ---
General Info Date of Service Date Performed: 05/18/23 Height: 5 ft 4 in Weight: 60.1 kg Body Mass Index (BMI): 22.7 Surgical Procedure: Operation Date: 05/18/23 10:35 Proposed Procedure Side Surgeon p Colonoscopy Hay Kumar MD Actual Procedure Side Surgeon p Colonoscopy Not Applicable Hay Kumar MD Pre-Op Diagnosis Post-Op Diagnosis SCREENING COLONOSCOPY Meds Allergies and Home Medications Allergies Allergy/AdvReac Type Severity Reaction Status Date / Time sumatriptan succinate Allergy Intermediate head Unverified 05/18/23 09:30 [From Imitrex] numbness sumatriptan [From Imitrex] AdvReac Intermediate head Verified 05/18/23 09:30 numbness Home Medication Medication Instructions Recorded Plexus Probio-5 4 tab PO DAILY 07/03/20 eletriptan 20 mg tablet 20 mg PO DAILY PRN 07/03/20 lorazepam 0.5 mg tablet 0.5 mg PO DAILY PRN 07/03/20 naratriptan 2.5 mg tablet 2.5 mg PO DAILY PRN 07/03/20 magnesium oxide 500 mg tablet 500 mg PO DAILY 06/10/21 ibuprofen 200 mg capsule 200 mg PO TID PRN 01/22/22 estradiol 1 mg tablet 0.5 mg PO DAILY 04/02/23 triamcinolone acetonide 0.1 % 1 applic topical BID 04/02/23 topical cream bisacodyl 5 mg tablet,delayed 5 mg PO ONCE Colonoscopy Bowel 05/07/23 release (Dulcolax (bisacodyl)) Prep #4 tabs polyethylene glycol 3350 17 238 g PO ONCE Colonoscopy Bowel 05/07/23 gram/dose oral powder Prep #238 grams Current Visit Medications: Current Medications Generic Name Dose Route Start Last Admin Trade Name Freq PRN Reason Stop Dose Admin Ringer's Solution 1,000 mls @ 80 mls/hr 05/18/23 06:00 05/18/23 09:44 IV 06/14/23 23:59 80 mls/hr INFUSION ANITHA Administration IV Miscellaneous Supplies 1 each 05/18/23 06:00 Iv Access IV 06/14/23 23:59 DIRECTED ANITHA Sodium Chloride 0 ml 05/18/23 06:00 Normal Saline Flush 10 Ml Syr IV 06/14/23 23:59 PRN PRN Sodium Chloride 0 ml 05/18/23 06:00 Normal Saline 10 Ml Vial IJ 06/14/23 23:59 DIRECTED PRN Sterile Water 0 ml 05/18/23 06:00 Water,Injection,Sterile 10 Ml Vial IJ 06/14/23 23:59 DIRECTED PRN PFSH Active Problems Active Problems: Problem Status Onset Code Eczema L30.9 Menopausal syndrome (hot flashes) N95.1 Chronic insomnia F51.04 Weight loss R63.4 Easy bruising R23.3 Strain of iliopsoas muscle S76.919A Sacroiliac joint dysfunction of left side M53.3 Sacroiliac joint dysfunction of left side M53.3 Hamstring tendonitis of left thigh M76.892 Mixed stress and urge urinary incontinence N39.46 Vaginal atrophy N95.2 Trochanteric bursitis, left hip M70.62 Pain in pelvis R10.2 COVID-19 U07.1 COVID-19 U07.1 Cervicalgia M54.2 Dysphagia, oropharyngeal R13.12 Left groin pain R10.32 Tear of left acetabular labrum S73.192A Iliotibial band syndrome of left side M76.32 Tendinopathy of left gluteus medius M67.952 Left-sided ischial pain M25.552 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, G89.29 Medical History Medical History History of prediabetes Nephrolithiasis Carpal tunnel syndrome on both sides Pain, joint, hip Leg edema, right Right calf pain Neck pain on right side Dysphagia Sore throat Urinary incontinence Anxiety and depression History of nephrolithiasis Spondylosis, cervical Buttock pain Chronic constipation Migraine headache Surgical History Surgical History S/P hip arthroscopy (10/04/21) History of bladder surgery sling surgery History of prior ablation treatment CERVICAL 07/2020 Hx of cholecystectomy 2003 H/O: hysterectomy 07/2009 Tobacco Smoking/Tobacco Use Status: Former Tobacco Use Alcohol Alcohol Intake: current Alcohol intake frequency: a few times a month Substance Use Substance use: Never Substance use type: does not use Vital Signs and Lab Results Vital Signs Most Recent Vital Signs in EMR: Most Recent Vital Signs Temp Pulse Resp BP Pulse Ox 36.3 C L 72 16 115/83 99 05/18/23 09:20 05/18/23 09:20 05/18/23 09:20 05/18/23 09:20 05/18/23 09:20 Lab Results Blood Type / Crossmatch: No Data to Display Complete Blood Count: No Data to Display Complete Metabolic Panel: Sodium 140 mmol/L (136-145) 05/06/23 11:07 Potassium 4.4 mmol/L (3.5-5.1) 05/06/23 11:07 Chloride 104 mmol/L (98-107) 05/06/23 11:07 Carbon Dioxide 29.0 mmol/L (21.0-32.0) 05/06/23 11:07 BUN 18 mg/dL (7-18) 05/06/23 11:07 Creatinine 0.8 mg/dL (0.55-1.02) 05/06/23 11:07 Est GFR (CKD-EPI 2020) 89.15 (mL/min/1.73m2) 05/06/23 11:07 Magnesium 2.3 mg/dL (1.8-2.4) 05/06/23 11:07 Calcium 9.0 mg/dL (8.5-10.1) 05/06/23 11:07 Glucose 93 mg/dL (74-106) 05/06/23 11:07 Liver Function Panel: No Data to Display Coagulation Panel: No Data to Display Cardiac Panel: No Data to Display Arterial Blood Gas: No Data to Display Venous Blood Gas: No Data to Display Pancreas Panel: No Data to Display Thyroid Panel: No Data to Display Infectious Disease: No Data to Display Blood Cultures: No Data to Display Toxicology Panel: No Data to Display Panel: No Data to Display Imaging and Studies Imaging and Studies Study information below may be from another EMR and interpreted by another provider. Please see original notes in EMR for more complete details. EKG Summary: DATE/TIME OF SERVICE: 06/13/21 1232 : 1970PERFORMING LOCATION: ER APPROVED REPORT Exam: Resting ECG Reason for Exam: chest pain Patient Location: E HR:90 bpm ECG Measurements Heart Rate 90 AXIS OK 170 P 32 QRSd 75 QRS 44 QT 347 T34 QTc 425 Conclusion Sinus rhythm...normal P axis, V-rate 60- 99 Physician: no stemi, q wave in lead 3 Anesthesia Assessment and Plan Anesthesia History Personal History: No History of Anesthesia Complications and PONV Family History: No Family History of Anesthesia Complications Exercise Tolerance Exercise Tolerance: Metabolic Equivalents>4 Pertinent Negatives Pertinent Negatives: No Symptoms of GERD Cardiac & Pulmonary Exam Cardiac Exam: Normal S1/S2 Heart Sounds Pulmonary Exam: Clear Bilateral Breath Sounds Implantable Cardiac Device Does patient have a Pacemaker or an ICD?: No Airway Exam Known Difficult Airway: No Mallampati Class: 2 Mouth Opening: Normal (> 3cm) Thyromental Distance: Greater than 3 cm Neck Range of Motion: Full ROM Neck Circumference: Normal Teeth Condition: Normal Dentition ASA Classification ASA Score: ASA 2 Emergency Case?: No NPO Status NPO Status: NPO Clears >2 hours, Solids >8 hours Status Status: Not Relevant due to Medical History Anesthesia Plan Resuscitation Status: Full Code Anesthesia Technique: General Anesthesia Airway Planned: Natural Airway Monitors Used: Standard Monitors
[2023-05-18 10:47] VITALS: BP 104/77; PULSE 73; RESP 16; TEMP 36.8; O2SAT 97
--- NOTE | 2023-05-18 11:03 | W.ANESPOSTOP ---
Postoperative Evaluation Date, Time and Location Date Performed: 05/18/23 Time Performed: 11:03 Patient Location: Day Surgery Unit Vital Signs Most Recent Imported Vital Signs: Most Recent Vital Signs Temp Pulse Resp BP Pulse Ox 36.3 C L 72 16 115/83 99 05/18/23 09:20 05/18/23 09:20 05/18/23 09:20 05/18/23 09:20 05/18/23 09:20 Assessment Mental Status: Awake (Alert & Oriented to Patient Baseline) Airway and Respiratory Function: Patent airway with normal (patient baseline) respiratory exam Cardiovascular Function: Hemodynamically Stable Hydration Status: Adequately Hydrated Nausea & Vomiting: No Nausea or Vomiting Pain: Pt. Denies Any Pain Peripheral Nerve Block: Patient did not receive a nerve block
[2023-05-18 11:20] VITALS: BP 111/86; PULSE 99; RESP 16; TEMP 36.6; O2SAT 99
== END 2023-05-18 11:40 | disposition home or self-care (01) ==
PROVIDERS: PCP Family Medicine; Visit Provider Student in an Organized Health Care Education/Training Program
PROC: 0DJD8ZZ Inspection of Lower Intestinal Tract, Via Natural or Artificial Opening Endoscopic (ICD-10-PCS; CPT 45378; principal; 2023-05-18 10:30)
DX: Z12.11 Encounter for screening for malignant neoplasm of colon (principal)
CPT/HCPCS: 45378; 00123; J2001

== ENCOUNTER 2023-05-19 12:08 | Outpatient (REF) | payer OTHER, SELFPAY ==
--- NOTE | 2023-05-19 11:45 | SKI_PTH ---
PATIENT: Mikki Aiken LOC: [facility] U#:[id number] AGE/SX: 53/F ROOM: RE05/19/[address]: Anjelica Zavala : 1970 BED: DIS: 05/19/2023 SPEC #: [id number] RECD: 05/19/23 16:29 STATUS: AKIRA REAngela #: [id number] ELI: 05/19/23 11:[address]: Anjelica Zavala DEPT: Surgical Specimen RECD BY: Blanca Arrieta ENTERED: 05/19/23 16:29 SP TYPE: LYNETTE PERRIN DR: Pati Gaona Tissues: 1 - SKIN BIOPSY(SHAVE/PUNCH) Procedures: SKIN LEVEL 4 Comments: [id number]
== END 2023-05-19 12:09 | disposition home or self-care (01) ==
LOC: LBN 12:08
PROVIDERS: PCP Family Medicine; Visit Provider Registered Nurse Maternal Newborn
DX: L82.1 Other seborrheic keratosis (principal)
CPT/HCPCS: 88305

== ENCOUNTER → 2023-10-09 00:23 | Outpatient (CLI) | payer OTHER, SELFPAY ==
--- NOTE | 2023-10-09 | DI.RAD_ITS ---
Exam(s) XR SHOULDER LT COMPLETE 2+V EXAM: XR SHOULDER LT COMPLETE 2+V CLINICAL HISTORY: PAIN LT SHOULDER, M25.512. TECHNIQUE: 2D digital imaging was performed of the left shoulder. Five images were obtained. AP, G rashey, Y-view and axillary views were obtained. COMPARISON: No exams were available for comparison FINDINGS: BONES: No acute fracture is present. No bony destructive lesion is seen. JOINTS: No dislocation present. The glenohumeral joint is well maintained. There are mild degenerati ve changes seen at the acromioclavicular joint. SOFT TISSUE: The visualized lungs are clear. IMPRESSION: There are mild degenerative changes seen at the AC joint. DATA REPOSITORY: RADIATION DOSE DELIVERED:
== END ==
PROVIDERS: PCP Family Medicine; Visit Provider Family Medicine
DX: M25.512 Pain in left shoulder (principal)
CPT/HCPCS: 73030

== ENCOUNTER 2023-10-17 13:49 | Emergency (ER) | payer OTHER, SELFPAY ==
[2023-10-17 13:56] VITALS: BP 151/109; PULSE 73; RESP 15; TEMP 37.1; O2SAT 99
--- NOTE | 2023-10-17 14:09 | ED.GENADUL_ITS ---
Discharge Plan Disposition Patient Disposition: Home Condition: Stable Discharge Details Clinical Impression: Contusion of arm, right, Sprain of right hand, Right wrist sprain Primary Care Provider: Pati Gaona ED Provider: Alfred Arvizu Home Meds and New Rx's Prescriptions: Continued estradiol 0.5 mg tablet 0.5 mg PO DAILY ibuprofen 200 mg capsule 200 mg PO TID PRN bisacodyl [Dulcolax (bisacodyl)] 5 mg tablet,delayed release (DR/EC) 5 mg PO ONCE Qty: 4 0RF Rx Instructions: Colonoscopy Bowel Prep- Per Instructions polyethylene glycol 3350 17 gram/dose powder 238 g PO ONCE Qty: 238 0RF Rx Instructions: Colonoscopy Bowel Prep- Per Instructions magnesium oxide 500 mg tablet 500 mg PO DAILY triamcinolone acetonide 0.1 % cream 1 applic topical BID estradiol 1 mg tablet 0.5 mg PO DAILY Rx Instructions: off 1 week; repeat cycle lorazepam 0.5 mg tablet 0.5 mg PO DAILY PRN Patient Comments: TAKE 1 TABLET BY MOUTH EVERY 12 HOURS NEEDED FOR SEVERE ANXIETY naratriptan 2.5 mg tablet 2.5 mg PO DAILY PRN Patient Comments: TAKE 1 TABLET BY MOUTH AT THE ONSET OF HEADACHE MAY REPEAT DOSE AGAIN IN 2 HOURS. MAXIMUM OF 2 TABLETS PER 24 HOURS. eletriptan 20 mg tablet 20 mg PO DAILY PRN Patient Comments: TAKE ONE TABLET BY MOUTH AT ONSET OF MIGRAINE MAY REPEAT ONCE IN TWO HOURS. MAXIMUM OF 2 TABLETS PER 24 HOURS. Plexus Probio-5 tablet 4 tab PO DAILY Discharge Instructions Additional Instructions: Your x-rays do not show any concerning findings at this time, no broken bones If pains are improving within a week follow-up with your primary care provider Return to the emergency department if you feel significant more pain or more ill or feel like you are suffering from an emergent medical process. HPI General Mode of arrival: ambulatory . Date/Time Provider Initiated Documentation: 10/17/23 13:51 . Limitations to Documentation: no limitations . Information obtained by: patient . History of Present Illness 53 year old F presents to the emergency department with the chief complaint of Right arm pain status post fall, described as moderate, Quality is described as aching, and is localized to the right and upper extremity. Patient reports no radiation. Patient started experiencing this hour(s) (4) and it has been constant. No relieving factors improve symptom(s), No exacerbating factors reported . Patient notes no other symptoms.. Patient did receive the following treatments prior to arrival, other (Tylenol) Related Data Home Medications Medication Instructions Recorded Confirmed Plexus Probio-5 4 tab PO DAILY 07/03/20 06/06/23 eletriptan 20 mg tablet 20 mg PO DAILY PRN 07/03/20 06/06/23 lorazepam 0.5 mg tablet 0.5 mg PO DAILY PRN 07/03/20 06/06/23 naratriptan 2.5 mg tablet 2.5 mg PO DAILY PRN 07/03/20 06/06/23 magnesium oxide 500 mg PO DAILY 06/10/21 06/06/23 ibuprofen 200 mg capsule 200 mg PO TID PRN 01/22/22 06/06/23 estradiol 1 mg tablet 0.5 mg PO DAILY 04/02/23 06/06/23 triamcinolone acetonide 0.1 % 1 applic topical BID 04/02/23 06/06/23 topical cream bisacodyl 5 mg tablet,delayed 5 mg PO ONCE Colonoscopy Bowel 05/07/23 06/06/23 release (Dulcolax (bisacodyl)) Prep #4 tabs polyethylene glycol 3350 17 238 g PO ONCE Colonoscopy Bowel 05/07/23 06/06/23 gram/dose oral powder Prep #238 grams estradiol 0.5 mg tablet 0.5 mg PO DAILY Menopause 05/19/23 06/06/23 Previous Rx's Medication Instructions Recorded bisacodyl 5 mg tablet,delayed 5 mg PO ONCE Colonoscopy Bowel 05/07/23 release (Dulcolax (bisacodyl)) Prep #4 tabs polyethylene glycol 3350 17 238 g PO ONCE Colonoscopy Bowel 05/07/23 gram/dose oral powder Prep #238 grams Allergies Allergy/AdvReac Type Severity Reaction Status Date / Time sumatriptan succinate Allergy Intermediate head Unverified 06/06/23 10:00 [From Imitrex] numbness sumatriptan [From Imitrex] AdvReac Intermediate head Verified 06/06/23 10:00 numbness General Stated Complaint: Orthopedic MELISSA: 4 Review of Systems All systems reviewed & are unremarkable except as noted in HPI and below Constitutional Constitutional: Denies chills, Denies fever(s) and Denies weakness Cardiovascular Cardiovascular: Denies chest pain and Denies dyspnea Respiratory Respiratory: Denies cough and Denies dyspnea Gastrointestinal Gastrointestinal: Denies abdominal pain, Denies nausea and Denies vomiting Musculoskeletal Musculoskeletal: Denies joint swelling Neurologic Neurologic: Denies weakness Exam Const General: no acute distress Orientation: alert [facility] Head: normal to inspection Ears: external ears normal General nose exam: external nose normal Mouth: moist mucous membranes Eyes General: appearance normal, both eyes and all related structures Neck Neck: normal visual inspection Resp Effort & Inspection: normal respiratory effort and able to speak in complete sentences Cardio Rate: regular rate Skin General skin exam: no rashes or lesions noted Neuro General: patient alert and patient oriented x3 Extrem General: normal to inspection, full ROM and capillary refill normal Psych Mental Status: mental status grossly normal Course Vital Signs Vital signs: Vital Signs Temperature 37.1 C 10/17/23 13:56 Pulse 73 10/17/23 13:56 Respiratory Rate 15 10/17/23 13:56 Blood Pressure 151/109 H 10/17/23 13:56 Pulse Oximetry 99 10/17/23 13:56 Temperature 37.1 C 10/17/23 13:56 Temperature Source Tympanic 10/17/23 13:56 Pulse 73 10/17/23 13:56 Respiratory Rate 15 10/17/23 13:56 Respiratory Effort Normal 10/17/23 13:58 Blood Pressure 151/109 H 10/17/23 13:56 Blood Pressure Position Sitting 10/17/23 13:56 Pulse Oximetry 99 10/17/23 13:56 Oxygen Delivery Method Room Air 10/17/23 13:56 Oxygen Flow Rate 0 10/17/23 13:56 Pain Level 7 10/17/23 13:56 Medical Decision Making 53-year-old female close it was by her PA status post fall. She says earlier today she was around some firewood and there was some string that she tripped over and fell from standing height onto her right outstretched arm. Denies hitting her head or loss of consciousness. She denies any headaches, neck pain, back pain, chest pain, difficulty breathing, abdominal pain. She has had no previous symptoms of the fall and states it was purely mechanical. She has pain in the right mid hand, right wrist on the ulnar surface, right mid forearm and right mid humerus. She is full range of motion of the wrist hand elbow and shoulder. Has intact sensation and pulses. There is no visible or palpable deformities, given location of pain in the fall will obtain x-rays of the hand, wrist, forearm and humerus. xrays per [facility] show no acute findings, patient stable with no new pain, states pain is better with ibuprofen, has full range of motion still of all of her extremities. Placed in sling to use for comfort, advised to follow-up with her PCP if not proving in a week and return precautions given Differential Diagnosis Differential Diagnosis: Strain, sprain, contusion, fracture Imaging Data Radiologic Study: Attestation: I personally reviewed and interpreted this imaging study as follows: Imaging: X-Ray My impression: No acute findings on x-ray of the hand, wrist, forearm, humerus per [facility] and on my read Quality:SDOH Health Related Social Needs: No Data to Display PFSH All Active Problems (Updated 10/17/23 @ 14:12 by Alfred Arvizu MD) Right wrist sprain (Acute) Sprain of right hand (Acute) Contusion of arm, right (Acute) Facial lesion (Acute) Eczema (Acute) Menopausal syndrome (hot flashes) (Acute) Chronic insomnia (Acute) Weight loss (Acute) Easy bruising (Acute) Strain of iliopsoas muscle (Acute) Sacroiliac joint dysfunction of left side (Acute) Sacroiliac joint dysfunction of left side (Acute) Hamstring tendonitis of left thigh (Acute) Mixed stress and urge urinary incontinence (Acute) Vaginal atrophy (Acute) Trochanteric bursitis, left hip (Acute) Pain in pelvis (Acute) COVID-19 (Acute) COVID-19 (Acute) Cervicalgia (Acute) Dysphagia, oropharyngeal (Acute) Left groin pain (Acute) DDX: Labral tear vs. psoas tendinitis Tear of left acetabular labrum (Acute) Iliotibial band syndrome of left side (Acute) Tendinopathy of left gluteus medius (Acute) Left-sided ischial pain (Acute) Chronic left sacroiliac pain (Acute) Medical History (Updated 10/17/23 @ 14:12 by Alfred Arvizu MD) History of prediabetes Nephrolithiasis Carpal tunnel syndrome on both sides Pain, joint, hip Leg edema, right Right calf pain Neck pain on right side Dysphagia Sore throat Urinary incontinence Anxiety and depression History of nephrolithiasis Spondylosis, cervical Buttock pain Chronic constipation Migraine headache Surgical History (Updated 05/20/23 @ 14:32 by Justine Gaines) History of colonoscopy (~05/2023) biopsies taken S/P hip arthroscopy (10/04/21) History of bladder surgery sling surgery History of prior ablation treatment CERVICAL 07/2020 Hx of cholecystectomy 2003 H/O: hysterectomy 07/2009 Family History Father Heart disease Glaucoma Mother Lung cancer Other Colon cancer Social History (Updated 05/07/23 @ 09:48 by RITIKA Bell) Smoking/Tobacco Use Status: Former Tobacco Use tobacco type: cigarettes and e- cigarettes Quit Date: 09/30/19 Pack-years: 10 Smoking risk assessment performed?: Yes Alcohol Intake: current Alcohol Intake frequency: a few times a month Drug use: Never Substance use type: does not use Household members: children Housing: house Number of Children: 1 current occupation: [employer] Pets and animals: Yes Pets and animals: dog(s) Current gender identity: female What type of physical activity do you participate in: walking Duration: 60-90 minutes/day Frequency: daily Do you feel safe at home: Yes Do you feel safe in your relationship?: Yes
--- NOTE | 2023-10-17 14:23 | DI.RAD_ITS ---
Exam(s) XR HAND RT COMPLETE EXAM: XR HAND RT COMPLETE CLINICAL HISTORY: pain s/p fall. TECHNIQUE: 2D digital imaging was performed. COMPARISON: No exams were available for comparison FINDINGS: 3 views No evidence of fracture or dislocation. No radiopaque foreign body. Bone density normal. No osseou s lesions. IMPRESSION: No acute osseous findings in the hand. DATA REPOSITORY: RADIATION DOSE DELIVERED:
--- NOTE | 2023-10-17 14:28 | DI.RAD_ITS ---
Exam(s) XR WRIST RT COMPLETE EXAM: XR WRIST RT COMPLETE CLINICAL HISTORY: pain s/p fall. TECHNIQUE: 2D digital imaging was performed. COMPARISON: No exams were available for comparison FINDINGS: 3 views No evidence of fracture or dislocation nor significant ulnar variance. Scaphoid and scapholunate dis tance normal. No osseous lesions. No erosions. IMPRESSION: No acute osseous findings in the wrist. DATA REPOSITORY: RADIATION DOSE DELIVERED:
--- NOTE | 2023-10-17 14:28 | DI.RAD_ITS ---
Exam(s) XR HUMERUS RT EXAM: XR HUMERUS RT CLINICAL HISTORY: pain s/p fall. TECHNIQUE: 2D digital imaging was performed. COMPARISON: No exams were available for comparison FINDINGS: Two views No evidence of fracture or dislocation nor abnormal soft tissue calcifications. Bone density normal. No osseous lesions. No radiopaque foreign body. IMPRESSION: No significant osseous findings in the humerus. DATA REPOSITORY: RADIATION DOSE DELIVERED:
--- NOTE | 2023-10-17 14:33 | DI.RAD_ITS ---
Exam(s) XR FOREARM RT EXAM: XR FOREARM RT v CLINICAL HISTORY: pain s/p fall. TECHNIQUE: 2D digital imaging was performed. COMPARISON: No exams were available for comparison FINDINGS: Two views. There is a elbow joint effusion noted. Slight irregularity of the radial neck noted remainder of the radius and ulna appear unremarkable. IMPRESSION: Possible subtle radial head-neck fracture DATA REPOSITORY: RADIATION DOSE DELIVERED:
[2023-10-17] MEDS: Ibuprofen 600 MG TAB PO (14:34)
--- NOTE | 2023-10-17 15:05 | DI.VRAD_ITS ---
PROCEDURE INFORMATION: Exam: XR Right Hand Exam date and time: 10/17/2023 2:20 PM Age: 53 years old Clinical indication: Other: Pain S/P fall TECHNIQUE: Imaging protocol: Radiologic exam of the right hand. Views: 3 or more views. COMPARISON: No relevant prior studies available. FINDINGS: Bones/joints: No fracture or dislocation. Soft tissues: No acute findings. IMPRESSION: No acute findings. Dictated and Authenticated by: Robbin Junior MD. Ordering:CASEY Simon MD
--- NOTE | 2023-10-17 15:06 | DI.VRAD_ITS ---
PROCEDURE INFORMATION: Exam: XR Right Forearm Exam date and time: 10/17/2023 2:24 PM Age: 53 years old Clinical indication: Other: Pain S/P fall TECHNIQUE: Imaging protocol: Radiologic exam of the right forearm. Views: 2 views. COMPARISON: CR XR WRIST RT COMPLETE 10/17/2023 2:20 PM FINDINGS: Bones/joints: No fracture or dislocation. Soft tissues: No acute findings. IMPRESSION: No acute findings. Dictated and Authenticated by: Robbin Junior MD. Ordering:CASEY Simon MD
--- NOTE | 2023-10-17 15:07 | DI.VRAD_ITS ---
PROCEDURE INFORMATION: Exam: XR Right Humerus Exam date and time: 10/17/2023 2:27 PM Age: 53 years old Clinical indication: Other: Pain S/P fall TECHNIQUE: Imaging protocol: Radiologic exam of the right humerus. Views: 2 or more views. COMPARISON: CT CHEST PE CTA 07/02/2022 7:39 PM FINDINGS: Bones/joints: No fracture or malalignment. Soft tissues: No acute findings. IMPRESSION: No acute findings. Dictated and Authenticated by: Robbin Junior MD. Ordering:CASEY Simon MD
--- NOTE | 2023-10-17 15:08 | DI.VRAD_ITS ---
PROCEDURE INFORMATION: Exam: XR Right Wrist Exam date and time: 10/17/2023 2:20 PM Age: 53 years old Clinical indication: Other: Pain S/P fall TECHNIQUE: Imaging protocol: Radiologic exam of the right wrist. Views: 3 or more views. COMPARISON: CR XR HAND RT COMPLETE 10/17/2023 2:20 PM FINDINGS: Bones/joints: No fracture or dislocation. Soft tissues: No acute findings. IMPRESSION: No acute findings. Dictated and Authenticated by: Robbin Junior MD. Ordering:CASEY Simon MD
[2023-10-17 15:35] VITALS: BP 138/95; PULSE 76; RESP 18; O2SAT 96
== END 2023-10-17 15:38 | disposition home or self-care (01) ==
PROVIDERS: Emergency Provider Emergency Medicine; PCP Family Medicine
DX: M79.601 Pain in right arm (principal); S63.91XA Sprain of unspecified part of right wrist and hand, initial encounter; S40.021A Contusion of right upper arm, initial encounter; W19.XXXA Unspecified fall, initial encounter
CPT/HCPCS: 99284; 73060; 73090; 73110; 73130; 99283

== ENCOUNTER 2023-10-27 15:41 | Outpatient (CLI) | payer OTHER, SELFPAY ==
--- NOTE | 2023-10-27 08:30 | DI.RAD_ITS ---
Exam(s) XR ELBOW RT COMPLETE EXAM: XR ELBOW RT COMPLETE CLINICAL HISTORY: F/U FRACTURE. TECHNIQUE: 2D digital imaging was performed of the left elbow. Three images were obtained. AP, lat eral and oblique views were obtained. COMPARISON: CR,XR XR WRIST RT COMPLETE from 10/17/2023 CR,XR XR HUMERUS RT from 10/17/2023 CR,XR XR FOREARM RT from 10/17/2023 FINDINGS: BONES: There is a nondisplaced fracture deformity involving the lateral aspect of the radial head and neck junction. No bony destructive lesion is seen. JOINTS: The elbow is normally aligned. There has been a decrease in size of the joint effusion. SOFT TISSUE: Normal. IMPRESSION: Stable alignment of the fracture involving the lateral aspect of the radial head neck junction. DATA REPOSITORY: RADIATION DOSE DELIVERED:
== END 2023-10-27 15:42 | disposition home or self-care (01) ==
LOC: DIORS 15:41
PROVIDERS: PCP Family Medicine; Visit Provider Student in an Organized Health Care Education/Training Program
DX: S52.131D Displaced fracture of neck of right radius, subsequent encounter for closed fracture with routine healing (principal); X58.XXXD Exposure to other specified factors, subsequent encounter
CPT/HCPCS: 73080

== ENCOUNTER → 2023-11-23 02:10 | Outpatient (CLI) | payer OTHER, SELFPAY ==
--- NOTE | 2023-11-23 14:00 | DI.MRI_ITS ---
Exam(s) MR UPPER JOINT LT WO EXAM: MR UPPER JOINT LT WO CLINICAL HISTORY: L SHOULDER PAIN M67.922 DISORDER SYNOVIUM AND TENDON LT UPPER ARM. TECHNIQUE: Multiplanar multisequence MRI was performed. COMPARISON: CR XR SHOULDER LT COMPLETE 2+V from 10/09/2023 FINDINGS: BONES: There is no fracture or contusion pattern. JOINTS: There are mild degenerative changes seen at the acromioclavicular joint. The glenohumeral ramila int is normal. There is a small joint effusion. TENDONS: Supraspinatus: No evidence of a supraspinatus tendon tear. Tendinosis is seen in the supraspinatus t endon. Infraspinatus: No evidence of an infraspinatus tendon tear. Subscapularis: Unremarkable. [place]res [place]: Unremarkable. Biceps and [place]: There is a small amount of fluid seen in the biceps tendon which may represent a t enosynovitis but no evidence of a biceps tendon tear. MUSCLES: Unremarkable. GLENOID LABRUM: There is mild hyperintense signal seen in the superior labrum anterior to the biceps attachment site which may represent degeneration and/or tear. SOFT TISSUES: Unremarkable. LIGAMENTS: The coracoid clavicular ligament is attenuated which may represent prior ligament tear. N o hyperintense signal is seen in this region to suggest an acute injury. OTHER: Subacromial and subdeltoid bursae are unremarkable. IMPRESSION: 1. Mild hyperintense signal seen in the superior labrum anterior to the biceps attachment which may r epresent degeneration and/or tear. 2. No evidence of a rotator cuff tear. 3. Biceps tenosynovitis. 4. The coracoid clavicular ligament is decreased in size but there is no abnormal signal. This may r epresent a prior ligament tear. DATA REPOSITORY:
== END ==
PROVIDERS: PCP Family Medicine; Visit Provider Student in an Organized Health Care Education/Training Program
DX: M67.922 Unspecified disorder of synovium and tendon, left upper arm (principal)
CPT/HCPCS: 73221

== ENCOUNTER 2024-01-14 07:19 | Day surgery (SDC) | payer OTHER, SELFPAY ==
[2024-01-14] VITALS (23 sets, daily range): BP systolic 96–145; BP diastolic 56–95; PULSE 64–91; RESP 12–20; TEMP 36–36.7; O2SAT 95–100; BMI 23.9
--- NOTE | 2024-01-14 07:16 | W.PM.DSUDISC ---
Date of service: 01/14/24 Time of Service: 14:00 Discharge Plan Disposition Patient Disposition: Home Condition: Stable Discharge Details Attending Provider: Yoel Jay Primary Care Provider: Pati Gaona Home Meds and New Rx's Prescriptions: New oxycodone 5 mg tablet 5 - 10 mg PO Q4H PRN (Reason: Moderate to severe pain) Qty: 18 0RF ibuprofen 800 mg tablet 800 mg PO BID PRN (Reason: pain, moderate) Qty: 40 0RF Continued ibuprofen 200 mg capsule 200 mg PO TID PRN magnesium oxide 500 mg tablet 500 mg PO DAILY triamcinolone acetonide 0.1 % cream 1 applic topical BID lorazepam 0.5 mg tablet 0.5 mg PO DAILY PRN Patient Comments: TAKE 1 TABLET BY MOUTH EVERY 12 HOURS NEEDED FOR SEVERE ANXIETY naratriptan 2.5 mg tablet 2.5 mg PO DAILY PRN Patient Comments: TAKE 1 TABLET BY MOUTH AT THE ONSET OF HEADACHE MAY REPEAT DOSE AGAIN IN 2 HOURS. MAXIMUM OF 2 TABLETS PER 24 HOURS. eletriptan 20 mg tablet 20 mg PO DAILY PRN Patient Comments: TAKE ONE TABLET BY MOUTH AT ONSET OF MIGRAINE MAY REPEAT ONCE IN TWO HOURS. MAXIMUM OF 2 TABLETS PER 24 HOURS. Plexus Probio-5 tablet 4 tab PO DAILY Discharge Instructions Additional Instructions: Surgery: Left shoulder arthroscopy with extensive debridement, subacromial decompression, and open biceps tenodesis Activity: You should gradually increase range of motion motion and use of your shoulder. You may use your shoulder for all regular activities while protecting biceps repair. Avoid any weighted elbow flexion or resisted supination for 6-8 weeks. No heavy lifting, reaching overhead, or lifting away from body for approximately 2-3 months. You may use the sling whenever you are out of the house for a few weeks. At home it is best to remove the sling and rest the arm on a pillow at your side or support the operative side with your other hand. A physical therapy prescription will be sent electronically to start in about 3 weeks. Prescriptions: Ibuprofen 800 mg take 1 every 12 hours with a meal as needed for moderate pain Oxycodone 5 mg take 1-2 every 4-6 hours as needed for severe pain You may use [id number] Tylenol (acetaminophen) as needed for mild pain. These pain medications may be taken all at once or in different combinations as needed. Also, recommend Colace (docusate) as a stool softener as surgery and pain medicine cause constipation. You may try [id number] diphenhydramine (Benadryl) 25-50 mg nightly as a sleep aid Dressings: Remove shoulder bandage after 3 days. Leave the sticky Steri-Strips in place until they fall off or remove them after you shower. Cover the incisions with Band-Aids or leave them open to air. The biceps bandage (inside upper arm) is glued on separately. You may leave this one on a few days longer if it is difficult to remove. There is also glue underneath this bandage that can be left in place until it peels off. You may shower after 5 days. Follow-up: 10-[address] Jay You may take off the leg compression stockings this evening at home. You may also leave them on a few days longer if you have a history of leg swelling or edema. Let us know right away if you develop any redness, drainage, fevers, chest pain, or trouble breathing. Do not drink alcohol or drive for at least 24 hours after anesthesia. Please call the office during business hours with any questions or concerns. Discharge Orders Discharge Orders: Discharge Order (Routine); Ordered 01/14/24 Ordered By: Chacorta Zambrano DS: Diagnosis Discharge Diagnosis (1) Tendinopathy of left biceps tendon: Status: Acute
--- NOTE | 2024-01-14 07:17 | W.PM.OP ---
Date of service: 01/14/24 Time of Service: 11:00 Operative Note Operative Note DATE OF PROCEDURE: 01/14/24 PRE-OP DIAGNOSIS: Left shoulder: 1. LHB tendinopathy 2. Bursitis 3. Glenohumeral chondromalacia POST-OP DIAGNOSIS: same PROCEDURE: Left: 1. Arthroscopic extensive debridement, CPT# 80170. This involved using arthroscopic hand instruments, power instruments, and radiofrequency instruments to release the long head of the biceps tendon and debride areas of labral tearing, synovitis, and chondromalacia about the humeral head and glenoid within the glenohumeral joint anteriorly, superiorly and posteriorly. 2. Subacromial decompression with partial acromioplasty, CPT# 08014. This involved using arthroscopic power instruments and a radiofrequency wand to complete a bursectomy and smooth the undersurface of the acromion. 3. Open biceps tenodesis, CPT# 19507. This involved reattaching the long head of the biceps tendon to the proximal humerus in the sub-pectoral area of the bicipital groove at the correct tension. The criminal legal assistant was medically required in order to help assist in techniques above, which require positioning the arm, holding the arthroscope, and manipulating multiple instruments and sutures at the same time. This cannot be done without the help of an experienced criminal legal assistant. SURGEON: Yoel Jay APPLICATIONS INSTRUCTOR: Chacorta Zambrano ANESTHESIA TYPE: Local By Surgeon, General LMA/ETT and Primary Nerve Block Refer to Anesthesia Record ESTIMATED BLOOD LOSS: 5 PATHOLOGY: none sent COMPLICATIONS: None Patient was transported to: PACU Patient's condition: stable Implants: Arthrex: Unicortical Proximal Biceps Tenodesis Button Indications: Please see complete medical record for details. Findings: Exam under anesthesia: Full range of motion, no instability Glenohumeral joint: Significant anterior rotator interval and moderate posterior capsulitis, synovitis, and labral tear fraying. Moderately significant anterior central humeral head chondromalacia with mild central glenoid chondromalacia with some loose cartilage flaps and rough irregular cartilage edges. Intact articular rotator cuff. Intact subscapularis. Obvious long head biceps inflammation and SLAP tear. Subacromial space: Moderate bursitis, no significant undersurface acromial bursal spurring. Supraspinatus mild fraying without lizandro tearing. Procedure Description: In the operating room, general anesthesia was induced. Bilateral shoulders were examined. The patient was positioned in the beachchair position. All bony prominences were well-padded. Preoperative antibiotics were administered. The shoulder was prepped and draped in the usual sterile fashion. The correct patient, procedure, and side of the procedure were all verified prior to incision. Starting through the posterior portal a standard complete diagnostic arthroscopy was performed of the glenohumeral joint including inspection of the long head of the biceps, anterior and superior labrum, subscapularis tendon, supraspinatus and infraspinatus tendons, and axillary recess. The glenoid and humeral head cartilage as well as the posterior labrum were inspected from an anterior viewing portal. Significant findings and interventions noted above. Of note, time was spent with the radiofrequency ablator mechanical shaver debriding the anterior superior and posterior labral tearing, debriding the synovitis capsulitis anteriorly especially and to lesser extent posteriorly. As well as rotating the humeral head and smoothing irregular cartilage and removing loose edges and flaps. The biceps tendon was released from the superior labrum using arthroscopic scissors. Starting through the posterior portal, the arthroscope was directed into the subacromial space. A lateral 50 yard line lateral portal was created. A combination of power instruments and a radiofrequency ablator were used to debride bursitis anteriorly, posteriorly, and laterally as well as expose and smooth bone spurring on the undersurface of the acromion. The coracoacromial ligament was partially released. The bursectomy was completed viewing laterally and working from posteriorly and the rotator cuff was thoroughly inspected with findings noted above. The shoulder was drained of arthroscopic fluid. 10 cc of 0.25% bupivacaine with epinephrine was infiltrated about a 3 cm longitudinal incision at the inferior margin of the pectoralis major localized over the long head of the biceps tendon. Blunt and sharp dissection were used to expose the tendon in the bicipital groove. The tendon was brought out of the wound, it showed significant tenosynovitis, and kept off the skin on top of a blue towel. The correct location for sub-pectoral fixation was localized, prepped with a rasp, and then drilled with a 3.2 mm drill pin in a unicortical fashion. Using a fiber loop suture the tendon was prepped from the musculotendinous junction a few centimeters proximal. The excess tendon was amputated. The free suture ends were then passed through the unicortical button implant. The drill pin was removed and the implant was placed into the humeral intramedullary canal. The button was flipped and the sutures were tensioned bringing the tendon down to bone. Tension and fixation were then tested and found to be appropriate. The free ends of the suture were were tied compressing tendon to bone. The wound was copiously irrigated with normal saline. Subcutaneous tissue was closed using 3-0 Monocryl in a buried interrupted fashion. Skin was closed using 3-0 Monocryl in a buried subcuticular running fashion. Skin glue was applied over the incision. Mastisol was applied about the incision. The incision was covered with Telfa, gauze, and covered with a Tegaderm dressing. All portal sites were copiously irrigated. These incisions were closed using 3-0 Monocryl in a buried fashion and then covered with Mastisol, Steri-Strips, Xeroform, dry gauze, and ABDs. The dressings were covered and secured with Medipore tape. The operative extremity was placed into a sling for immobilization. The patient awoke from anesthesia without complication and was transferred to the recovery room in a stable condition.
[2024-01-14] MEDS: Lactated Ringers 1,000 ML 30 ML IV (08:30)
--- NOTE | 2024-01-14 09:09 | W.ANESPRE ---
General Info Date of Service Date Performed: 01/14/24 Height: 5 ft 4 in Weight: 63.2 kg Body Mass Index (BMI): 23.9 Surgical Procedure: Operation Date: 01/14/24 09:25 Proposed Procedure Side Surgeon p Shoulder Arthroscopy w/Extensive Debridement, Subacromial Decompression and Open Biceps Tenodesis Left Yoel Jay MD Meds Allergies and Home Medications Allergies Allergy/AdvReac Type Severity Reaction Status Date / Time sumatriptan succinate (From Allergy Intermediate head Verified 01/14/24 07:39 Imitrex) numbness Home Medication ?Medication ?Instructions ?Recorded Plexus Probio-5 4 tab PO DAILY 07/03/20 eletriptan 20 mg tablet 20 mg PO DAILY PRN 07/03/20 lorazepam 0.5 mg tablet 0.5 mg PO DAILY PRN 07/03/20 naratriptan 2.5 mg tablet 2.5 mg PO DAILY PRN 07/03/20 magnesium oxide 500 mg PO DAILY 06/10/21 ibuprofen 200 mg capsule 200 mg PO TID PRN 01/22/22 triamcinolone acetonide 0.1 % 1 applic topical BID 04/02/23 topical cream oxycodone 5 mg tablet 5 - 10 mg (1 - 2 x 5 mg) PO Q4H 01/14/24 PRN Moderate to severe pain #18 tabs Current Visit Medications: Current Medications Generic Name Dose Route Start Last Admin Trade Name Freq PRN Reason Stop Dose Admin Ringer's Solution 1,000 mls @ 30 mls/hr 01/14/24 06:00 IV 02/12/24 23:59 INFUSION ANITHA Cefazolin Sodium/Dextrose 2 gm in 50 mls @ 100 mls/hr 01/14/24 06:00 Ancef Duplex IVPB 01/14/24 16:00 PREOP ANITHA Tranexamic Acid/Sodium Chloride 1,000 mg in 100 mls @ 600 mls/hr 01/14/24 06:00 IVPB 01/14/24 16:00 PREOP ANITHA IV Miscellaneous Supplies 1 each 01/14/24 06:00 Iv Access IV 02/12/24 23:59 DIRECTED ANITHA Oxycodone HCl 0 mg 01/14/24 07:15 Oxycodone 5 Mg Tab PO 02/13/24 07:14 Q3H PRN PRN Pain Sodium Chloride 0 ml 01/14/24 06:00 Normal Saline Flush 10 Ml Syr IV 02/12/24 23:59 PRN PRN Sodium Chloride 0 ml 01/14/24 06:00 Normal Saline 10 Ml Vial IJ 02/12/24 23:59 DIRECTED PRN Sterile Water 0 ml 01/14/24 06:00 Water,Injection,Sterile 10 Ml Vial IJ 02/12/24 23:59 DIRECTED PRN PFSH Active Problems Active Problems: Problem Status Onset Code Lateral epicondylitis, left elbow Acute M77.12 Tendinopathy of left biceps tendon Acute M67.922 Fracture of radial neck, right, closed Acute 10/17/23 S52.131A Facial lesion Acute L98.9 Eczema Acute L30.9 Menopausal syndrome (hot flashes) Acute N95.1 Chronic insomnia Acute F51.04 Weight loss Acute R63.4 Easy bruising Acute R23.3 Strain of iliopsoas muscle Acute S76.919A Sacroiliac joint dysfunction of left side Acute M53.3 Sacroiliac joint dysfunction of left side Acute M53.3 Hamstring tendonitis of left thigh Acute M76.892 Mixed stress and urge urinary incontinence Acute N39.46 Vaginal atrophy Acute N95.2 Trochanteric bursitis, left hip Acute M70.62 Pain in pelvis Acute R10.2 COVID-19 Acute U07.1 COVID-19 Acute U07.1 Cervicalgia Acute M54.2 Dysphagia, oropharyngeal Acute R13.12 Left groin pain Acute R10.32 Tear of left acetabular labrum Acute S73.192A Iliotibial band syndrome of left side Acute M76.32 Tendinopathy of left gluteus medius Acute M67.952 Left-sided ischial pain Acute M25.552 Chronic left sacroiliac pain Acute M53.3, G89.29 Medical History Medical History History of prediabetes Nephrolithiasis Carpal tunnel syndrome on both sides Pain, joint, hip Leg edema, right Right calf pain Neck pain on right side Dysphagia Sore throat Urinary incontinence Anxiety and depression History of nephrolithiasis Spondylosis, cervical Buttock pain Chronic constipation Migraine headache Surgical History Surgical History History of colonoscopy (~05/2023) biopsies taken S/P hip arthroscopy (10/04/21) History of bladder surgery sling surgery History of prior ablation treatment CERVICAL 07/2020 Hx of cholecystectomy 2003 H/O: hysterectomy 07/2009 Tobacco Smoking/Tobacco Use Status: Former Tobacco Use Alcohol Alcohol Intake: current Alcohol intake frequency: a few times a month Substance Use Substance use: Never Substance use type: does not use Vital Signs and Lab Results Vital Signs Most Recent Vital Signs in EMR: Most Recent Vital Signs Temp Pulse Resp BP Pulse Ox 36.7 C 64 16 118/74 100 01/14/24 07:41 01/14/24 07:41 01/14/24 07:41 01/14/24 07:41 01/14/24 07:41 Lab Results Blood Type / Crossmatch: No Data to Display Complete Blood Count: No Data to Display Complete Metabolic Panel: No Data to Display Liver Function Panel: No Data to Display Coagulation Panel: No Data to Display Cardiac Panel: No Data to Display Arterial Blood Gas: No Data to Display Venous Blood Gas: No Data to Display Pancreas Panel: No Data to Display Thyroid Panel: No Data to Display Infectious Disease: No Data to Display Blood Cultures: No Data to Display Toxicology Panel: No Data to Display Panel: No Data to Display Imaging and Studies Imaging and Studies Study information below may be from another EMR and interpreted by another provider. Please see original notes in EMR for more complete details. EKG Summary: DATE/TIME OF SERVICE: 06/13/21 1232 : 1970PERFORMING LOCATION: ER APPROVED REPORT Exam: Resting ECG Reason for Exam: chest pain Patient Location: E HR:90 bpm ECG Measurements Heart Rate 90 AXIS MS 170 P 32 QRSd 75 QRS 44 QT 347 T34 QTc 425 Conclusion Sinus rhythm...normal P axis, V-rate 60- 99 Physician: no stemi, q wave in lead 3 Anesthesia Assessment and Plan Anesthesia History Personal History: PONV Family History: No Family History of Anesthesia Complications Exercise Tolerance Exercise Tolerance: Metabolic Equivalents>4 Pertinent Negatives Pertinent Negatives: No Symptoms of GERD, No Major Cardiovascular Symptoms or Complaints and No Major Pulmonary Symptoms or Complaints Cardiac & Pulmonary Exam Cardiac Exam: Normal S1/S2 Heart Sounds Pulmonary Exam: Clear Bilateral Breath Sounds Implantable Cardiac Device Does patient have a Pacemaker or an ICD?: No Airway Exam Known Difficult Airway: No Mallampati Class: 2 Mouth Opening: Normal (> 3cm) Thyromental Distance: Greater than 3 cm Neck Range of Motion: Full ROM Neck Circumference: Normal Teeth Condition: Normal Dentition ASA Classification ASA Score: ASA 2 Emergency Case?: No NPO Status NPO Status: NPO Clears >2 hours, Solids >8 hours Status Status: History of Hysterectomy Anesthesia Plan Resuscitation Status: Full Code Anesthesia Technique: General Anesthesia Airway Planned: Endotracheal Tube Pain Management: Surgeon and patient request nerve block Monitors Used: Standard Monitors
[2024-01-14] MEDS: ceFAZolin 2 GM/50 ML BAG IVPB (09:45)
[2024-01-14] MEDS: TRANEXAMIC ACID/SOD. CHL. 1,000 MG/100 ML BAG 600 MG IVPB (09:52)
--- NOTE | 2024-01-14 10:18 | W.ANESNERVE ---
Nerve Block Single Injection Procedure Date and Time Date Performed: 01/14/24 Procedure Start: 09:14 Location Where Procedure Performed Procedure Location: Day Surgery Unit Reason Performed: Postoperative Analgesia Requesting Provider: Yoel Jay Timeout Performed Timeout Performed: Yes Monitoring Used ECG, Blood Pressure, SpO2 and See EMR for corresponding vital signs Sterility Sterility: Hand Hygiene, Surgical Cap, Surgical Mask, Sterile Gloves and Chlorhexidine Sedation Given During Procedure Sedation Given (Indicate Dose Given): Versed IV Dose:: 2mg Patient Mental Status Patient Mental Status: Sedate with meaningful communication Nerve Block 1st Nerve Block: Laterality: Left Block Type: Supraclavicular Ultrasound Image Saved?: Yes Needle / Catheter Used: 80mm SonoPlex II Local Anesthetic Bolus (Indicate Dose Given): Lidocaine used for local infiltration of skin, Injected in 3-5ml increments after negative blood aspiration, Bupivacaine 0.5% Dose:: 10ml and Exparel Dose:: 10ml Additives (Indicate Dose Given): None Ultrasound: Sterile probe cover and gel used Nerve Stimulator: Supplement to Ultrasound use and No twitch or parasthesia noted < 0.5 mA Paresthesia: None Procedure Tolerated: No Complications and Patient tolerated well Procedure Outcome: Successful Performed By: Sebas Landis
[2024-01-14] MEDS: Bupivacaine 0.25% Pres-Free W/EPI 30 ML VIAL (10:21)
--- NOTE | 2024-01-14 12:47 | W.ANESPOSTOP ---
Postoperative Evaluation Date, Time and Location Date Performed: 01/14/24 Time Performed: 12:48 Patient Location: Day Surgery Unit Vital Signs Most Recent Imported Vital Signs: Most Recent Vital Signs Temp Pulse Resp BP Pulse Ox 36.4 C L 70 16 115/82 100 01/14/24 12:35 01/14/24 12:35 01/14/24 12:35 01/14/24 12:35 01/14/24 12:35 Pain Score Most Recent Pain Score: Most Recent Pain Score Pain Level 0 01/14/24 12:35 Assessment Mental Status: Awake (Alert & Oriented to Patient Baseline) Airway and Respiratory Function: Patent airway with normal (patient baseline) respiratory exam Cardiovascular Function: Hemodynamically Stable Hydration Status: Adequately Hydrated Nausea & Vomiting: No Nausea or Vomiting Pain: Pt. Denies Any Pain Peripheral Nerve Block: Regional nerve block not resolved at time of post operative discharge
== END 2024-01-14 13:07 | disposition home or self-care (01) ==
PROVIDERS: PCP Family Medicine; Visit Provider Student in an Organized Health Care Education/Training Program
PROC: (CPT 29805; principal; 2024-01-14 09:15)
DX: M75.22 Bicipital tendinitis, left shoulder (principal); M75.52 Bursitis of left shoulder; M94.212 Chondromalacia, left shoulder
CPT/HCPCS: 23430; 29823; 29826; 76942; C9290; J0665; J0690; J1100; J1805; J1885; J2250; J2405; J2704; J3010

== ENCOUNTER 2024-03-29 01:27 | Outpatient (CLI) | payer OTHER, SELFPAY ==
--- NOTE | 2024-03-29 08:08 | DI.MAMMO_ITS ---
Exam(s) MAMMO SCREENING EXAM: MAMMO SCREENING CLINICAL HISTORY: SCREENING, Z12.31 TECHNIQUE: Mammograms were interpreted according to the usual protocol including computer analysis w Stemgent CAD system, tomosynthesis and C-view imaging. COMPARISON: 2016 through 2022 FINDINGS: The breasts are composed of scattered fibroglandular densities, Breast Density category B. No suspicious masses or suspicious microcalcifications are seen. No skin thickening or abnormal axillary lymph nodes are seen. There has been no significant change from prior exams. IMPRESSION: BI-RADS Category 1, Negative mammogram Yearly screening mammography is recommended. Breast Density - Category B, scattered fibroglandular densities. A negative radiographic report should not delay biopsy if a dominant or clinically suspicious mass is present. Up to ten percent of cancers are not identified on mammography. A negative report may reinforce clinical impression. Adenosis and dense breasts may obscure an underlying neoplasm. False positive reports average 6 to 10%. Patient will receive a letter notifying them of these results.
== END 2024-03-29 01:47 ==
LOC: DI 01:27
PROVIDERS: PCP Family Medicine; Visit Provider Family Medicine
DX: Z12.31 Encounter for screening mammogram for malignant neoplasm of breast (principal)
CPT/HCPCS: 77063; 77067

== ENCOUNTER 2024-03-30 10:43 | Outpatient (REF) | payer OTHER, SELFPAY ==
[2024-03-30 16:42] LABS: HCT 40.7 % (36.0-46.0); HGB 13.3 g/dL (11.2-15.7); MCH 30.2 pg (27.0-33.0); MCHC 32.7 % (32.0-36.0); MCV 93 fL (80-95); MPV 9.8 fL (8.0-11.0); Platelet Count 274 10^3/uL (130-400); RDW-SD 43.9 fL; WBC 7.42 10^3/uL (4.4-10.8)
== END 2024-03-30 10:44 | disposition home or self-care (01) ==
LOC: NCHCN 10:43
PROVIDERS: PCP Family Medicine; Visit Provider Family Medicine
DX: R53.83 Other fatigue (principal)
CPT/HCPCS: 85027; 84443

== ENCOUNTER 2024-06-22 09:21 | Outpatient (CLI) | payer OTHER, SELFPAY ==
--- NOTE | 2024-06-22 08:45 | DI.RAD_ITS ---
Exam(s) XR LUMBAR SPINE COMP W FLEX/EX EXAM: XR LUMBAR SPINE COMP W FLEX/EX CLINICAL HISTORY: Chronic low back pain M54.50. TECHNIQUE: 2D digital imaging was performed. Seven views. Flexion and extension lateral views were performed in addition to the routine views. COMPARISON: CR XR LUMBAR SPINE AP, LAT from 01/01/2022 FINDINGS: BONES: No fracture or destructive lesion. Vertebral body heights are maintained. Minimal facet hyp ertrophy identified at L4-5.. DISKS: Mild narrowing of the L5-S1 disc space. The remain intervertebral disc spaces are maintain ed. ALIGNMENT: Lumbar spinal alignment is within normal limits. No subluxation with flexion or extensio n. SOFT TISSUE: Right upper quadrant surgical clips. IMPRESSION: Mild facet degenerative changes L4-5. Mild disc space narrowing at L5-S1. DATA REPOSITORY: RADIATION DOSE DELIVERED:
== END 2024-06-22 09:41 ==
LOC: DI 09:22
PROVIDERS: PCP Family Medicine; Visit Provider Preventive Medicine Occupational Medicine
DX: M54.50 Low back pain, unspecified (principal)
CPT/HCPCS: 72114

== ENCOUNTER 2024-07-27 09:28 | Outpatient (CLI) | payer OTHER, SELFPAY ==
[2024-07-27 09:42] VITALS: BP 121/87; PULSE 79; RESP 18; TEMP 36.2; O2SAT 98
[2024-07-27 10:16] VITALS: PULSE 74; PULSE 76; RESP 15; O2SAT 95
[2024-07-27 10:18] VITALS: BP 134/108; PULSE 78; RESP 14; O2SAT 97
[2024-07-27 10:20] VITALS: PULSE 77; RESP 17; O2SAT 96
[2024-07-27 10:30] VITALS: BP 134/101; PULSE 75; RESP 12; O2SAT 97
--- NOTE | 2024-07-27 10:32 | DI.RAD_ITS ---
Exam(s) XR PAIN CLINIC LUMBAR SP 2V EXAM: XR PAIN CLINIC LUMBAR SP 2V CLINICAL HISTORY: Dx: Lumbar Spondylosis. TECHNIQUE: Fluoroscopy was provided for the referring physician for guidance with performing pain cl inic injection procedure. COMPARISON: No exams were available for comparison FINDINGS: Please see procedure note for details. Fluoro time: 45.9 seconds RADIATION DOSE DELIVERED: Camillar=8.24 mGy
[2024-07-27] MEDS: Nerve Block Tray 1 EACH MC (10:36)
[2024-07-27] MEDS: Omnipaque 240 MG/ML 50 ML BTL IJ (10:36)
[2024-07-27] MEDS: Bupivacaine 0.5% Pres-Free 10 ML VIAL IJ (10:37)
--- NOTE | 2024-07-27 11:04 | PDOC.PAIN ---
Date of service: 07/27/24 Time of Service: 11:04 Pain Managment Procedure Note Procedure Note Procedure Note: PROCEDURE NOTE Bilateral Lumbar Medial Branch Blocks Date of Service: July 27, 2024 Patient: Mikki Aiken Provider: Melissa Urena DO, MPH Mikki Doroteo Aiken has been referred to the [facility] for lumbar medial branch blocks. Pre-operative diagnosis: Lumbar Spondylosis without Myelopathy ICD-10 M47.816 Post-operative diagnosis: Same Pre-procedure pain: VAS= 7-8/10 COMMENTS: I previously evaluated her in the clinic and her symptoms have not changed. Donald was interviewed and the medical records were reviewed. There were no medical, pharmacologic, radiographic or other structural contraindications to attempting fluoroscopically guided local anesthetic lumbar medial branch blocks. Risks and potential side effects were discussed. I also discussed the potential benefit(s) of the procedure with Mikki, and voiced concerns were addressed. After Mikki was completely informed about the procedure, the printed consent form was signed. A standard time-out procedure was performed. Mikki was placed in the prone position on the fluoroscopy table. Automated blood pressure cuff and pulse oximeter were applied. The skin entry points for approaching the anatomic target points of the segmental medial branches of bilateral L3,L4,L5 were identified with fluoroscopy and marked. The skin at the target site area was thoroughly prepared with Chlorhexadine. The skin was then draped. Next, a 25 gauge 3.5 spinal needle was placed under fluoroscopic guidance down on to the target point (the articular pillar) for each respective segmental medial branch. Position was confirmed in A/P and lateral views. Aspiration revealed no blood or clear fluid. Next, 0.25ml of omnipaque 240 was injected at each level. No contrast following a vascular or neural pattern was visualized under continuous fluoroscopy. Next, 0.25 ml of preservative-free 0.5% bupivicaine was injected at each level. There was no unusual discomfort expressed by Mikki. The needles were withdrawn without difficulty. (49 mls of Omnipaque was wasted) Mikki was observed and was without hemodynamic, neurologic, or allergic reactions.? Fluoroscopic images were digitally archived. Provacative testing using the Modified Sue's facet loading test- Left side Right Side Directly before the block VAS (0-10) = 7-8/10 VAS (0-10) = 7-8/10 Five minutes after the block VAS (0-10) = 7/10 VAS (0-10) = 7/10 Percentage relief obtained with this diagnostic block 0% 0% Any improved physical functioning directly after the blocks? None Follow up plans and appointments were discussed with Mikki. Mikki was instructed to keep careful note of how the usual pain was modified by these injections. Specifically, to keep a pain diary for the next 4 hours using a numeric pain scale of 0-10 and report these results. Post procedure instruction was given as documented in the nursing documentation and having met discharge criteria, the patient was [facility] from the [facility]. Based on the medial branches blocked today, if they patient has adequate relief and we are able to proceed to radiofrequency ablation, the treatment should result in the denervation of the bilateral L4-L5 and L5-S1 facet joints. We would expect to denervate a total of 4 facets during the radiofrequency ablation. COMMENTS: No apparent complications. Post-procedure pain: VAS= 7/10 Mikki will call back with 0-4 hour post-procedure pain scores. She is going snowshoeing to test this out. I personally performed the entire procedure. MELISSA URENA DO, MPH ABPM&R-subspecialty board certification in Pain Medicine [facility]
== END 2024-07-27 09:29 | disposition home or self-care (01) ==
LOC: PC 09:29
PROVIDERS: PCP Family Medicine; Visit Provider Preventive Medicine Occupational Medicine
DX: M47.816 Spondylosis without myelopathy or radiculopathy, lumbar region (principal); M54.50 Low back pain, unspecified
CPT/HCPCS: 64493; 64494; 72100; J0665; Q9967

== ENCOUNTER 2024-08-17 14:57 | Outpatient (CLI) | payer OTHER, SELFPAY ==
[2024-08-17] VITALS (7 sets, daily range): BP systolic 125–158; BP diastolic 92–114; PULSE 69–84; RESP 13–23; TEMP 36.7; O2SAT 96–99
--- NOTE | 2024-08-17 06:00 | DI.RAD_ITS ---
Exam(s) XR PAIN CLINIC LUMBAR SP 2V EXAM: XR PAIN CLINIC LUMBAR SP 2V CLINICAL HISTORY: Dx: Lumbar Spondylosis. TECHNIQUE: Fluoroscopy was provided for the referring physician for guidance with performing pain cl inic injection procedure. COMPARISON: No exams were available for comparison FINDINGS: Please see procedure note for details. Fluoro time: 53 seconds RADIATION DOSE DELIVERED: joanne Sampson=8.9 mGy
--- NOTE | 2024-08-17 15:38 | PDOC.PAIN_ITS ---
Date of service: 08/17/24 Time of Service: 15:38 Pain Managment Procedure Note Procedure Note Procedure Note: PROCEDURE NOTE Bilateral Lumbar Medial Branch Blocks Date of Service: August 17, 2024 Patient: Mikki Aiken Provider: Nikolas Urena DO, MPH Mikki Doroteo Aiken has been referred to the [facility] for lumbar medial branch blocks. Pre-operative diagnosis: Lumbar Spondylosis without Myelopathy ICD-10 M47.816 Post-operative diagnosis: Same Pre-procedure pain: VAS= 7-8/10 COMMENTS: She did very well wiht her first LMBB Mikki? was interviewed and the medical records were reviewed. There were no medical, pharmacologic, radiographic or other structural contraindications to attempting fluoroscopically guided local anesthetic lumbar medial branch blocks. Risks and potential side effects were discussed. I also discussed the potential benefit(s) of the procedure with Mikki, and voiced concerns were addressed. After Mikki was completely informed about the procedure, the printed consent form was signed. A standard time-out procedure was performed. Mikki was placed in the prone position on the fluoroscopy table. Automated blood pressure cuff and pulse oximeter were applied. The skin entry points for approaching the anatomic target points of the segmental medial branches of bilateral L3,L4,L5 were identified with fluoroscopy and marked. The skin at the target site area was thoroughly prepared with Chlorhexadine. The skin was then draped. Next, a 25 gauge 3.5 spinal needle was placed under fluoroscopic guidance down on to the target point (the articular pillar) for each respective segmental medial branch. Position was confirmed in A/P and lateral views. Aspiration revealed no blood or clear fluid. Next, 0.25ml of omnipaque 240 was injected at each level. No contrast following a vascular or neural pattern was visualized under continuous fluoroscopy. Next, 0.25 ml of preservative-free 0.5% bupivicaine was injected at each level. There was no unusual discomfort expressed by Mikki. The needles were withdrawn without difficulty. (49 mls of Omnipaque was wasted) Mikki was observed and was without hemodynamic, neurologic, or allergic reactions.? Fluoroscopic images were digitally archived. Provacative testing using the Modified Sue's facet loading test- Left side Right Side Directly before the block VAS (0-10) = 8/10 VAS (0-10) = 8/10 Five minutes after the block VAS (0-10) = 8/10 VAS (0-10) = 8/10 Percentage relief obtained with this diagnostic block 0% 0% Any improved physical functioning directly after the blocks? She was able to move her low back with pain. She had minimal relief directly after the last procedure. She does not like to lay on her stomach and she believes her pain will again be better now that she is not prone. Follow up plans and appointments were discussed with Mikki. Mikki was instructed to keep careful note of how the usual pain was modified by these injections. Specifically, to keep a pain diary for the next 4 hours using a numeric pain scale of 0-10 and report these results. Post procedure instruction was given as documented in the nursing documentation and having met discharge criteria, the patient was [facility] from the [facility]. Based on the medial branches blocked today, if they patient has adequate relief and we are able to proceed to radiofrequency ablation, the treatment should result in the denervation of the bilateral L4-L5 and L5-S1 facet joints. We would expect to denervate a total of 4 facets during the radiofrequency ablation. COMMENTS: No apparent complications. Post-procedure pain: VAS= 8/10 Mikki will call back with 0-4 hour post-procedure pain scores. I personally performed the entire procedure. NIKOLAS URENA DO, MPH ABPM&R-subspecialty board certification in Pain Medicine [facility] Coding Conscious Sedation used for procedure: No CPT Codes: LMBB (includes Fluoro) Lumbar/Sacral, 2nd lvl - 57624 ([id number] ~G) LMBB (includes Fluoro) Lumbar/Sacral, single lvl *BILATERAL* - [id number] ([id number]~G5) Additional Codes: Date of Service (33819) Date of service: 08/17/24
[2024-08-17] MEDS: Bupivacaine 0.5% Pres-Free 10 ML VIAL IJ (15:45)
[2024-08-17] MEDS: Nerve Block Tray 1 EACH MC (15:45)
[2024-08-17] MEDS: Omnipaque 240 MG/ML 50 ML BTL IJ (15:45)
== END 2024-08-17 14:58 | disposition home or self-care (01) ==
LOC: PC 14:57
PROVIDERS: PCP Family Medicine; Visit Provider Preventive Medicine Occupational Medicine
DX: M47.816 Spondylosis without myelopathy or radiculopathy, lumbar region (principal)
CPT/HCPCS: 64493; 64494; 72100; J0665; Q9967

== ENCOUNTER 2024-09-21 06:57 | Outpatient (CLI) | payer OTHER, SELFPAY ==
[2024-09-21] VITALS (17 sets, daily range): BP systolic 116–168; BP diastolic 85–150; PULSE 67–91; RESP 10–21; TEMP 36.7; O2SAT 89–100
[2024-09-21] MEDS: fentaNYL 100 MCG/2 ML VIAL IVP ×3 (08:19→08:35)
[2024-09-21] MEDS: Midazolam 2 MG/2 ML VIAL IVP (08:19)
[2024-09-21] MEDS: Lactated Ringers 500 ML 80 ML IV (08:20)
[2024-09-21] MEDS: Nerve Block Tray 1 EACH MC (09:05)
--- NOTE | 2024-09-21 09:06 | DI.RAD_ITS ---
Exam(s) XR PAIN CLINIC LUMBAR SP 2V EXAM: XR PAIN CLINIC LUMBAR SP 2V CLINICAL HISTORY: Dx: Lumbar Spondylosis TECHNIQUE: 2D and realtime digital imaging was performed. CONTRAST MATERIAL: Refer to procedure report. COMPARISON: No exams were available for comparison FINDINGS: Fluoroscopy was provided for Dr. Urena during the performance of a lumbar radiofrequency ablation. P lease refer to the procedure report for complete details. Ka,r=10.8 mGy IMPRESSION: RADIATION DOSE DELIVERED: 0.0 0.0 0
[2024-09-21] MEDS: methylPREDNISolone ACETATE 40 MG/ML VIAL IJ (09:08)
[2024-09-21] MEDS: Lidocaine 2% Multi-Dose 20 ML VIAL IJ (09:10)
[2024-09-21] MEDS: Bupivacaine 0.5% Pres-Free 10 ML VIAL IJ (09:10)
--- NOTE | 2024-09-21 10:32 | PDOC.PAIN ---
Date of service: 09/21/24 Time of Service: 09:00 Pain Managment Procedure Note Procedure Note Procedure Note: PROCEDURE NOTE BILATERAL LUMBAR RADIOFREQUENCY ABLATION Date of Service: September 21, 2024 Patient:? Mikki Aiken? Provider:? Nikolas Obregon DO, MPH Mikki Aiken has been referred to the [facility] for Bilateral Lumbar Radiofrequency Ablation with the AvImmunetric[employer] Machine.? Pre Operative Diagnosis: Lumbosacral Spondylosis without Myelopathy ICD-10 M47.816 Post Operative Diagnosis: Same Pre procedure pain; VAS= 9/10 Comments: Excellent relief with her LMBBs on 07/27/24 and 08/17/24. Symptoms are the same. PROCEDURE: Radiofrequency Ablation of medial branches - bilateral L3, L4, L5 and lateral branches of bilateral S1. Mikki?was interviewed and the medical record was reviewed.? There were no medical, pharmacologic, radiographic or other structural contraindications to attempting fluoroscopically guided BILATERAL Lumbar Radiofrequency Ablation.?Risks and expected side effects as well as potential benefit of the procedure were reviewed with Mikki, and the patient's voiced concerns were addressed.? The printed consent form was signed.? Standard time-out procedure was performed. Mikki was brought into the fluoroscopy suite and positioned into the prone position on the fluoroscopy table and allowed to adjust to a position of comfort. A grounding pad was placed on the left abdomen. The sterile field was prepared using chlorhexidine preparation of the skin and sterile draping. Local anesthesia superficial and deep was provided by local infiltration of 2% lidocaine. A 17g 100 mm radiofrequency introducer needle was placed to the planned anatomic targets guided with intermittent fluoroscopy with a perpendicular approach to terminally place at the junction of the superior articular process and the transverse process of the bilateral L4, L5, the base of the sacral ala on the bilateral for the L5 medial branch nerve and the area between base of the sacral ala to the S1 foramen bilaterally. The stylets were removed and radiofrequency probes with a 4mm active tip were then inserted. Needle tip position of the probes was verified in the AP, oblique, and lateral views. At each site, the medial branch nerve was stimulated at 2 Hz to a maximum 1-2 volts determined to finalize safe needle and electrode placement. The patient was awake and responsive during this portion of the procedure. Each target was anesthetized with 1-2 mL of 2 % Lidocaine for anesthesia for lesioning and then each target was lesioned at 80 degrees Celsius for 2 minutes and 30 seconds. Tissue impedances were noted to be between 250 and 500 Ohms. There was no unusual discomfort expressed by Mikki. The needles were withdrawn without difficulty and bandages placed over the needle placement sites, the patient was observed and was without hemodynamic, neurologic, or allergic reactions. Fluoroscopic images were digitally archived. POST PROCEDURE EVALUATION: IMPRESSION: 1. Summary of procedure. Medication given is documented in the MAR. 2. Follow up plan: Mikki to contact [place] [facility] as needed.?This procedure may be repeated if the patient achieves at least 50% improvement in pain/function for at least 6 months. 3. Estimated Blood Loss: <5 mls 4. Fluoroscopy time: Documented in the EMR. Follow up plans and appointments were discussed with the Mikki. Post procedure instruction was given as documented in nursing documentation and having met discharge criteria, Mikki was discharged from the [facility]. This advanced procedure uses cooled radiofrequency energy to safely target the sensory nerves responsible for sending pain signals.1 A radiofrequency generator transmits a small current of Radiofrequency energy through an insulated electrode, or probe, placed within tissue. Ionic heating, produced by the friction of charged molecules, thermally deactivates the nerves responsible for sending pain signals to the brain. Radiofrequency energy heats and cools the tissue at the site of pain. Unlike other Radiofrequency procedures, Coolief circulates water through the device while heating nervous tissue to create a larger treatment area, increasing the opportunity to help with pain. This combination targets the pain-transmitting nerves without excessive heating, leading to pain relief. COMMENTS: No apparent complications. Post-procedure pain: VAS= 9/10. She has a hard time in the prone position and had significant muscle spasms when she got up. I personally completed the entire procedure. NIKOLAS OBREGON DO, MPH ABPM&R - Subspecialty board certification in Pain Medicine [facility] Coding Conscious Sedation used for procedure: Yes CPT Codes: Single Facet Joint, Lumbar/Sacral cool - 77658D ([id number]~G) Bilateral Single Facet Joint, Lumbar/Sacral cool each add'l - 21688E (06301N07~G) LT - LEFT SIDE, RT - RIGHT SIDE Bilateral Additional Codes: Date of Service (22631) Date of service: 09/21/24
== END 2024-09-21 06:58 | disposition home or self-care (01) ==
LOC: PC 06:58
PROVIDERS: PCP Family Medicine; Visit Provider Preventive Medicine Occupational Medicine
DX: M47.816 Spondylosis without myelopathy or radiculopathy, lumbar region (principal)
CPT/HCPCS: 64635; 64636; 72100; J0665; J1010; J2003; J2250; J3010

== ENCOUNTER 2024-11-18 00:36 | Outpatient (CLI) | payer OTHER, SELFPAY ==
--- NOTE | 2024-11-18 07:30 | DI.MRI_ITS ---
Exam(s) MR LUMBAR SPINE WO EXAM: MR LUMBAR SPINE WO CLINICAL HISTORY: low back pain with radiation to the R leg,lumbar radiculitis,m54.16. TECHNIQUE: Multiplanar multisequence MRI of the Lumbar spine was performed. COMPARISON: MR MRI - LUMBAR SPINE WO CONTRAST from 05/21/2015 MR MR LUMBAR SPINE WO from 09/06/2019 FINDINGS: Bones: The last intervertebral disc space is designated the L5/S1 level for the numbering purpose of this examination. The vertebral body heights are well maintained. Alignment is satisfactory. The signal characteristics are unremarkable. Cord: The conus tip ends at the T12 level. It is of normal size and signal intensity. T12-L1: No disc herniations or bulges are present. No central spinal canal or neural foraminal stenosis. L1-2: No disc herniations or bulges are present. No central spinal canal or neural foraminal stenosis. L2-3: No disc herniations or bulges are present. No central spinal canal or neural foraminal stenosis. L3-4: No disc herniations or bulges are present. No central spinal canal or neural foraminal stenosis. L4-5: There is disc desiccation at this level. There is a mild diffuse disc bulge. Mild degenerative changes of the facets are seen. No central spinal canal or neural foraminal stenosis. L5-S1: There is a mild diffuse disc bulge. There is loss of signal of the disc at this level. Degenerative endplate signal changes are present. There are degenerative changes of the facets seen at this level. No central spinal canal or neural foraminal stenosis. Soft tissues: The visualized SI joints and sacrum are well maintained. The paraspinal soft tissues are unremarkable. IMPRESSION: 1. No evidence of significant spinal stenosis or neuroforaminal narrowing. 2. Degenerative changes are again seen at L4-5 and L5-S1. DATA REPOSITORY:
== END 2024-11-18 00:56 ==
LOC: DI 00:37
PROVIDERS: PCP Family Medicine; Visit Provider Preventive Medicine Occupational Medicine
DX: M54.16 Radiculopathy, lumbar region (principal)
CPT/HCPCS: 72148

== ENCOUNTER 2024-12-14 10:05 | Outpatient (CLI) | payer OTHER, SELFPAY ==
--- NOTE | 2024-12-14 06:00 | DI.RAD_ITS ---
Exam(s) XR PAIN CLINIC LUMBAR SP 2V EXAM: XR PAIN CLINIC LUMBAR SP 2V CLINICAL HISTORY: DX: Lumbar Radiculopathy TECHNIQUE: 2D and realtime digital imaging was performed. CONTRAST MATERIAL: Refer to procedure report. COMPARISON: No exams were available for comparison FINDINGS: Fluoroscopy was provided for Dr. Urena during the performance of a lumbar epidural steroid injection. Please refer to the procedure report for complete details. Ka,r=4.62 mGy IMPRESSION: RADIATION DOSE DELIVERED: 0.0 0.0 0
[2024-12-14 10:18] VITALS: BP 125/93; PULSE 71; RESP 18; TEMP 36; O2SAT 99
[2024-12-14 10:46] VITALS: PULSE 71; O2SAT 97
[2024-12-14 10:48] VITALS: BP 138/104; PULSE 71; PULSE 73; RESP 13; O2SAT 95
[2024-12-14 10:50] VITALS: PULSE 86; RESP 16; O2SAT 97
[2024-12-14 10:58] VITALS: BP 147/108; PULSE 73; PULSE 75; RESP 12; O2SAT 95
--- NOTE | 2024-12-14 10:58 | PDOC.PAIN ---
Date of service: 12/14/24 Time of Service: 10:58 Pain Managment Procedure Note Procedure Note Procedure Note: PROCEDURE NOTE LUMBAR EPIDURAL STEROID INJECTION Date of Service: December 14, 2024 Patient:Mikki Moreland? Provider: Nikolas Urena DO, MPH Mikki Aiken has been referred to the [facility] for a lumbar epidural steroid injection. Pre-operative diagnosis: Lumbosacral Radiculopathy ICD-10 M54.16 Post-operative diagnosis: Same Pre-Procedure Pain: VAS= 4-8 /10 Comments: I previously evaluated her in the office. Her symptoms have not changed. Mikki was interviewed and the medical record was reviewed.? There were no medical, pharmacologic, radiographic or other structural contraindications to attempting fluoroscopically guided Lumbar epidural steroid injection.? Risks, potential side effects, indications, and potential benefits of the procedure were reviewed with Mikki.? Questions and concerns were addressed.? After it was clear that Mikki was fully informed about the procedure, the printed consent form was signed by the patient and myself.? Mikki was placed in the prone position on the fluoroscopy table and automated blood pressure cuff and pulse oximeter applied. The skin entry point for entering/approaching the epidural space for the lumbar epidural steroid injection was marked. Following thorough chlorhexadine preparation of the skin and draping and 1% lidocaine infiltration of the skin entry point and subcutaneous tissues, an 18 gauge Touhy needle was placed and advanced under fluoroscopic guidance and with loss of resistance technique into the L5-S1 epidural space. Needle tip placement and depth were aided and confirmed by fluoroscopy. There was no paresthesia or return of blood or CSF through the needle. 1 mls of Omnipaque 240 was injected with clear epidural spread confirmed with fluoroscopy. 80 mg of Depo-Medrol was? injected. This was followed by 1 ml of preservative-free normal saline to flush the steroid out of the needle. There was no unusual discomfort expressed by Mikki. The needle was withdrawn without difficulty. (49 mls of Omnipaque was wasted) Mikki was observed and was without hemodynamic, neurologic, or allergic reactions.? Fluoroscopic images were digitally archived. Mikki's vital signs were stable throughout the procedure and were as recorded in nursing records. Follow up plans and appointments were discussed with Mikki. Post procedure instruction was given as documented in nursing records and having met discharge criteria Mikki was discharged from the [facility]. COMMENTS: No apparent complications. Post-procedure pain: VAS= 6/10. Mikki to contact [facility] as needed. If at least 50% improvement in pain and/or function for at least 3 months is achieved, this procedure can be repeated. I personally performed this entire procedure. NIKOLAS URENA DO, MPH ABPMR-subspecialty board certification in Pain Medicine [facility] Coding Conscious Sedation used for procedure: No CPT Codes: Inj Spine L/S w/Imaging - 82432 ([id number] ~G) Additional Codes: Date of Service (40829) Date of service: 12/14/24 Diagnoses: lumbosacral radiculopathy
[2024-12-14] MEDS: Omnipaque 240 MG/ML 50 ML BTL IJ (11:04)
[2024-12-14] MEDS: Epidural Tray 1 EACH MC (11:04)
[2024-12-14] MEDS: methylPREDNISolone ACETATE 80 MG/ML VIAL IJ (11:05)
== END 2024-12-14 10:06 | disposition home or self-care (01) ==
PROVIDERS: PCP Family Medicine; Visit Provider Preventive Medicine Occupational Medicine
DX: M54.16 Radiculopathy, lumbar region (principal)
CPT/HCPCS: 62323; 72100; J1010; Q9967

== ENCOUNTER 2025-04-05 10:29 | Outpatient (CLI) | payer OTHER, SELFPAY ==
[2025-04-05 11:13] VITALS: BP 138/91; PULSE 68; RESP 20; TEMP 37; O2SAT 98
--- NOTE | 2025-04-05 11:57 | DI.RAD_ITS ---
Exam(s) XR PAIN CLINIC LUMBAR SP 2V EXAM: XR PAIN CLINIC LUMBAR SP 2V CLINICAL HISTORY: Dx: Lumbar Radiculopathy TECHNIQUE: 2D and realtime digital imaging was performed. Radiologist not present. CONTRAST MATERIAL: None. COMPARISON: No exams were available for comparison FINDINGS: Fluoroscopy was provided for pain management therapy. Please refer to procedure report or details. Radiation Exposure Index: Ka,r=2.39 mGy IMPRESSION: As above. RADIATION DOSE DELIVERED:
[2025-04-05 12:01] VITALS: BP 131/100; PULSE 82; RESP 20; O2SAT 98
[2025-04-05] MEDS: methylPREDNISolone ACETATE 40 MG/ML VIAL IJ (12:07)
[2025-04-05] MEDS: Omnipaque 240 MG/ML 50 ML BTL IJ (12:07)
[2025-04-05] MEDS: Epidural Tray 1 EACH MC (12:10)
--- NOTE | 2025-04-05 13:08 | PDOC.PAIN ---
Date of service: 04/05/25 Time of Service: 13:08 Pain Managment Procedure Note Procedure Note Procedure Note: PROCEDURE NOTE LUMBAR EPIDURAL STEROID INJECTION Date of Service: April 05, 2025 Patient:Mikki Moreland? Provider: Nikolas Urena DO, MPH Mikki Aiken has been referred to the [facility] for a lumbar epidural steroid injection. Pre-operative diagnosis: Lumbosacral Radiculopathy ICD-10 M54.16 Post-operative diagnosis: Same Pre-Procedure Pain: VAS= 8 /10 Comments: She has last had this procedure on 12/14/24 with >50% pain relief for >3 months. Mikki was interviewed and the medical record was reviewed.? There were no medical, pharmacologic, radiographic or other structural contraindications to attempting fluoroscopically guided Lumbar epidural steroid injection.? Risks, potential side effects, indications, and potential benefits of the procedure were reviewed with Mikki.? Questions and concerns were addressed.? After it was clear that Mikki was fully informed about the procedure, the printed consent form was signed by the patient and myself.? Mikki was placed in the prone position on the fluoroscopy table and automated blood pressure cuff and pulse oximeter applied. The skin entry point for entering/approaching the epidural space for the lumbar epidural steroid injection was marked. Following thorough chlorhexadine preparation of the skin and draping and 1% lidocaine infiltration of the skin entry point and subcutaneous tissues, an 18 gauge Touhy needle was placed and advanced under fluoroscopic guidance and with loss of resistance technique into the L5-S1 epidural space. Needle tip placement and depth were aided and confirmed by fluoroscopy. There was no paresthesia or return of blood or CSF through the needle. 1 mls of Omnipaque 240 was injected with clear epidural spread confirmed with fluoroscopy. 80 mg of Depo-Medrol (2 mL of 40 mg/cc) was? injected. This was followed by 1 ml of preservative-free normal saline to flush the steroid out of the needle. There was no unusual discomfort expressed by Mikki. The needle was withdrawn without difficulty. (49 mls of Omnipaque was wasted) Mikki was observed and was without hemodynamic, neurologic, or allergic reactions.? Fluoroscopic images were digitally archived. Mikki's vital signs were stable throughout the procedure and were as recorded in nursing records. Follow up plans and appointments were discussed with Mikki. Post procedure instruction was given as documented in nursing records and having met discharge criteria Mikki was discharged from the [facility]. COMMENTS: No apparent complications. Post-procedure pain: VAS= 7/10. Mikki to contact [facility] as needed. If at least 50% improvement in pain and/or function for at least 3 months is achieved, this procedure can be repeated. I personally performed this entire procedure. NIKOLAS URENA DO, MPH ABPMR-subspecialty board certification in Pain Medicine [facility] Coding Conscious Sedation used for procedure: No CPT Codes: Inj Spine L/S w/Imaging - 00369 ([id number] ~G) Additional Codes: Date of Service () Diagnoses: Lumbar radiculopathy
== END 2025-04-05 10:30 | disposition home or self-care (01) ==
LOC: PC 10:29
PROVIDERS: PCP Family Medicine; Visit Provider Preventive Medicine Occupational Medicine
DX: M54.16 Radiculopathy, lumbar region (principal)
CPT/HCPCS: 62323; 72100; J1010; Q9967

== ENCOUNTER 2025-04-19 13:42 | Outpatient (CLI) | payer OTHER, SELFPAY ==
--- NOTE | 2025-04-19 10:00 | DI.RAD_ITS ---
Exam(s) XR ELBOW LT COMPLETE EXAM: XR ELBOW LT COMPLETE CLINICAL HISTORY: pain. TECHNIQUE: 2D digital imaging was performed. Three views. COMPARISON: CR XR ELBOW RT COMPLETE from 10/27/2023 FINDINGS: BONES: No acute fracture is present. No bony destructive lesion is seen. JOINTS: The elbow is normally aligned. No joint effusion is seen. The joint spaces are maintained. SOFT TISSUE: Normal. IMPRESSION: Unremarkable radiographs of the left elbow. DATA REPOSITORY: RADIATION DOSE DELIVERED:
== END 2025-04-19 13:43 | disposition home or self-care (01) ==
LOC: DIORS 13:42
PROVIDERS: PCP Family Medicine; Visit Provider Physician Assistant
DX: M77.12 Lateral epicondylitis, left elbow (principal)
CPT/HCPCS: 73080

== ENCOUNTER → 2025-04-21 10:53 | Outpatient (CLI) | payer OTHER, SELFPAY ==
--- NOTE | 2025-04-21 11:00 | DI.MRI_ITS ---
Exam(s) MR UPPER JOINT LT WO EXAM: MR UPPER JOINT LT WO CLINICAL HISTORY: M77.12 Lateral epicondylitis , LT ELBOW PAIN. TECHNIQUE: Multiplanar multisequence MRI was performed. COMPARISON: Plain films 19 April 2025 FINDINGS: Elbow joint: No joint effusion. No loose bodies. Bones: There is no fracture or contusion pattern. Biceps tendon: Intact. No tendinosis. Brachialis tendon: Intact. No tendinosis. Common flexor tendons: Intact. No tendinosis. Common extensor tendons: Mild edema at origin. Triceps tendon: Intact. No tendinosis. Soft tissues: Edema in the soft tissues at the lateral epicondyle. IMPRESSION: Mild edema at the origin of the common extensor tendon could indicate partial tear. There is adjacent soft tissue edema. DATA REPOSITORY:
== END ==
LOC: DI 10:53
PROVIDERS: PCP Family Medicine; Visit Provider Student in an Organized Health Care Education/Training Program
DX: M77.12 Lateral epicondylitis, left elbow (principal); M66.20 Spontaneous rupture of extensor tendons, unspecified site
CPT/HCPCS: 73221